=== PATIENT | male | born 1960 | race African-American/Black ===

== ENCOUNTER 2021-09-12 19:04 | Emergency (ER) | payer MEDICAID, SELFPAY ==
[2021-09-12 19:08] VITALS: BP 121/95; PULSE 89; RESP 18; TEMP 36.1; O2SAT 95; BMI 27.3
== END 2021-09-12 20:57 | disposition left against medical advice (07) ==
PROVIDERS: Emergency Provider Emergency Medicine; PCP Family Medicine
DX: M25.511 Pain in right shoulder (principal)
CPT/HCPCS: 99281

== ENCOUNTER 2022-05-17 08:59 | Outpatient (REF) | payer MEDICAID, SELFPAY ==
[2022-05-17 09:28] LABS: COVID-19 Test Negative (Negative); IDNOW Serial# BCCEAD1C
== END 2022-05-17 09:00 | disposition home or self-care (01) ==
LOC: HO.LAB 08:59
PROVIDERS: Visit Provider Internal Medicine
DX: Z20.822 Contact with and (suspected) exposure to COVID-19 (principal)
CPT/HCPCS: 87635; C9803

== ENCOUNTER 2022-08-28 15:30 | Emergency (ER) | payer MEDICAID, SELFPAY ==
--- NOTE | ~2022-08-28 | CT_ITS ---
EXAMINATION: CT cervical spine and CT brain without contrast. COMPARISON: None. TECHNIQUE: Axial 5 mm thin and reformatted 2 mm thin sagittal and coronal images of brain were obtained. Subsequently axial 3 mm thin and reformatted 2 mm thin sagittal and coronal images of cervical spine were obtained. DLP [address] examination was performed using dose optimization technique as appropriate, variously including the following: Automated exposure control Adjustment of MA and/or KV according to patient size(this includes techniques or standardized protocols for targeted exams where dose is matched to indication/reason for exam; extremities or head. Use of iterative reconstruction techniques. Brain: There is no acute intra-axial, extra-axial bleed, masses or midline shift. There is no acute infarction evolution. There is no edema. The lateral ventricles are symmetrical in size and configuration without enlargement. Bone windows reveal no calvarial abnormality. There is no scalp soft tissue modality. Bilateral paranasal sinuses and mastoid air cells are well-aerated. Cervical spine: There is normal cervical lordosis. The vertebral heights, alignment and disc heights are normal. The craniovertebral junction and the C1-C2 alignment is normal. There is mild left C3-C4 uncovertebral hypertrophic changes with degenerative disc changes mildly narrowing the left neural foramina. There is vacuum disc herniation as well. The right neural foramina is widely patent. There is a left laminar hypodensity at C7 measuring air likely old fracture and healing. Mild facet joint hypertrophic changes are seen at this disc level. Mild right C2-C3 facet joint arthropathy is noted as well. CT/CT cervical spine wo IV con IMPRESSION: 1. No acute intracranial process seen. 2. There is no acute fracture, dislocation or subluxation in cervical spine. There is a left C7 laminar hypodensity likely old fracture and healing. There is mild left C3-C4 neural foraminal narrowing from uncovertebral hypertrophic changes. The prevertebral and paravertebral soft tissues are normal. The airway is widely patent. The lung apices are clear.
[2022-08-28 15:40] VITALS: BP 103/77; BP 134/98; PULSE 110; RESP 16; TEMP 36.4; O2SAT 40; O2SAT 95; BMI 24.3
--- NOTE | 2022-08-28 16:02 | ED.ALCOHOL ---
HPI - Alcohol General Chief Complaint: ETOH/Substance Use <MARVA Matias Last Filed: 08/28/22 16:15> Stated Complaint: FOUND UNRESP,NARCAN GIVEN W/GOOD RESULT PER EMS <MARVA Matias Last Filed: 08/28/22 16:15> Time Seen by Provider: 08/28/22 15:36 <MARVA Matias Last Filed: 08/28/22 16:15> Source: patient, EMS, RN notes reviewed and old records reviewed <MARVA Matias Last Filed: 08/28/22 16:15> Mode of arrival: EMS <MARVA Matias Last Filed: 08/28/22 16:15> History of Present Illness HPI narrative: 61-year-old male with a past medical history of substance abuse presenting to the ED via EMS for ETOH intoxication and mechanical trip and fall w/+ head strike, denies LOC. Per EMS when patient was in the ambulance became unresponsive was given 2 mg of intranasal Narcan with positive result. Patient admits to drinking EtOH since this morning, about 1 bottle and 1 nip of fireball, as well as snorting 1 bag of heroin. Denies SI/HI. Denies headache, neck/back pain, CP/SOB, abdominal pain, nausea/vomiting <MARVA Matias Last Filed: 08/28/22 16:15> MD complaint: alcohol intoxication <MARVA Matias Last Filed: 08/28/22 16:15> Related Data Allergies/Adverse Reactions: Allergies Allergy/AdvReac Type Severity Reaction Status Date / Time tramadol Allergy Unknown itching Verified 09/12/21 19:08 No Known Allergies Allergy Verified 09/12/21 19:08 <MARVA Matias Last Filed: 08/28/22 16:15> Review of Systems Review of Systems: Constitutional: No Fever, No Chills, No Fatigue, No Malaise ENT/Mouth: No Ear Pain, No Nasal Congestion, No sore throat Cardiovascular: No Chest Pain, No SOB Respiratory: No Cough, No Sputum, No Dyspnea Gastrointestinal: No Nausea, No Vomiting, No Diarrhea, No Constipation, No Abdominal pain Genitourinary: No Dysuria, No Hematuria, No Urinary Incontinence/retention Musculoskeletal: No joint pain, No Myalgias, No Joint Swelling Skin: No Skin Lesions, No rash Neuro: No Weakness, No Loss of Consciousness, No Headache Psych: No Anxiety/Panic, No Depression, No SI/HI/AH/VH, No Social Issues <MARVA Matias - Last Filed: 08/28/22 16:15> Yes all other systems are reviewed and are negative <MARVA Matias - Last Filed: 08/28/22 16:15> Constitutional: Constitutional: Reports as per HPI <MARVA Matias Last Filed: 08/28/22 16:15> [facility] Past Medical History Attestation statement: The following information was validated with the patient. <MARVA Matias Last Filed: 08/28/22 16:15> Physical Exam ED Vital Signs: Vital Signs - 24 hr 08/28/22 15:40 Temperature 97.5 F Pulse Rate 110 H Respiratory Rate 16 Blood Pressure 103/77 Pulse Oximetry 95 Oxygen Delivery Method Room Air BMI result Body Mass Index 24.3 <MARVA Matias - Last Filed: 08/28/22 16:15> Vital Signs - 24 hr 08/28/22 15:40 Temperature 97.5 F Pulse Rate 110 H Respiratory Rate 16 Blood Pressure 103/77 Pulse Oximetry 95 Oxygen Delivery Method Room Air BMI result Body Mass Index 24.3 <Ba Maurer - Last Filed: 08/28/22 16:51> Const Other: + EtOH odor on breath <MARVA Matias - Last Filed: 08/28/22 16:15> General: cooperative, no acute distress, alert, awake and intoxicated appearing <MARVA Matias Last Filed: 08/28/22 16:15> Orientation/consciousness: patient oriented x3 <MARVA Matias - Last Filed: 08/28/22 16:15> Limitations: no limitations <MARVA Matias Last Filed: 08/28/22 16:15> HENMT Head: Yes normal to inspection, Yes atraumatic, No Rubalcava's sign and No raccoon eyes <MARVA Matias Last Filed: 08/28/22 16:15> Ears: hearing grossly normal bilaterally <Tavia Peralta PA - Last Filed: 08/28/22 16:15> General nose exam: Normal external nose present <Tavia Peralta [place] - Last Filed: 08/28/22 16:15> Face and sinus: Yes normal facial exam <Tavia Peralta PA - Last Filed: 08/28/22 16:15> Throat: Yes posterior oropharynx normal, Yes tonsils normal and Yes uvula midline <Tavia Peralta NH - Last Filed: 08/28/22 16:15> Eyes General: appearance normal, both eyes and all related structures <Tavia Peralta NH - Last Filed: 08/28/22 16:15> Pupils: Equal, round and reactive pupils present <Tavia Peralta NH - Last Filed: 08/28/22 16:15> EOM: EOMs intact bilaterally <Tavia Peralta NH - Last Filed: 08/28/22 16:15> Neck Neck: Yes normal visual inspection and Yes no meningeal signs <Tavia Peralta NH - Last Filed: 08/28/22 16:15> Resp Effort & Inspection: normal respiratory effort and no respiratory distress <Tavia Peralta NH - Last Filed: 08/28/22 16:15> Auscultation: clear to auscultation bilaterally <Tavia Peralta NH - Last Filed: 08/28/22 16:15> Cardio Rate: regular rate <Tavia Peralta NH - Last Filed: 08/28/22 16:15> Heart sounds: S1 normal heart sound present and S2 normal heart sound present <Tavia Peralta PA - Last Filed: 08/28/22 16:15> GI Inspection: Yes normal to inspection <Tavia Peralta NH - Last Filed: 08/28/22 16:15> Palpation (GI): Soft to palpation, nontender, no guarding and not rigid <Tavia Peralta PA - Last Filed: 08/28/22 16:15> General: Yes no CVA tenderness <Tavia Peralta PA - Last Filed: 08/28/22 16:15> Back/Spine/Pelvis Other: No midline cervical/thoracic/lumbar spinous tenderness/step-off or deformity <MARVA Matias Last Filed: 08/28/22 16:15> Back: no CVA tenderness <MARVA Matias Last Filed: 08/28/22 16:15> Skin Rashes: no rashes <MARVA Matias Last Filed: 08/28/22 16:15> Wounds: no wounds <Tavia Peralta [facility] Last Filed: 08/28/22 16:15> Neuro Other: No tongue fasciculations or tremors <MARVA Matias Last Filed: 08/28/22 16:15> General: patient oriented x3, tone normal, moves all extremities, no meningeal signs, no focal motor deficits and CN's II-XI intact bilaterally <MARVA Matias Last Filed: 08/28/22 16:15> Cranial nerves: Yes CN's II-XII intact bilaterally, Yes Equal, round and reactive pupils present and Yes Bilaterally intact EOM present <MARVA Matias Last Filed: 08/28/22 16:15> Gait exam (Neuro): Normal gait present <MARVA Matias Last Filed: 08/28/22 16:15> Extrem General: Yes normal to inspection <MARVA Matias Last Filed: 08/28/22 16:15> Psych Thought content: suicidality and no homicidality <MARVA Matias Last Filed: 08/28/22 16:15> Course Course Course Narrative: -1630--ED care transferred to MARVA Alfaro pending CT head/C-spine and clinical sobriety <MARVA Matias Last Filed: 08/28/22 16:15> Reevaluation(s) Reevaluation #1: Patient received in sign-out at change of shift pending CT scan and re-evaluation. Patient's CT scan did not show any acute traumatic injuries. The patient is requesting discharge at this time. He reports that he did not use drugs and was ?just tired. ? He is clinically sober at this time and does not want to speak to the care team regarding substance abuse resources <Ba Maurer - Last Filed: 08/28/22 16:51> Time: 16:49 <Ba Maurer - Last Filed: 08/28/22 16:51> Medical Decision Making Medical Decision Making [facility] Narrative: 61-year-old male with a past medical history of substance abuse presenting to the ED via EMS for ETOH intoxication and mechanical trip and fall w/+ head strike. Per EMS when patient was in the ambulance became unresponsive was given 2mg of intranasal Narcan with positive result. On exam mildly tachycardic, NAD, nontoxic appearing, + ETOH odor on breath, no evidence of trauma, no midline spinous tenderness throughout, moving all extremities. Concern for ETOH intoxication and accidental overdose. Rule out ICH although of lower suspicion. Plan: POSEY, head/C-spine CT Please refer to course for remaining clinical decision making, interpretation of labs/imaging results, and discussions with consultants and/or family members. <MARVA Matias - Last Filed: 08/28/22 16:15> Differential Diagnosis Differential Diagnoses: The differential diagnosis associated with the presentation includes <MARVA Matias - Last Filed: 08/28/22 16:15> As above <MARVA Matias - Last Filed: 08/28/22 16:15> Admission/Observation Consideration of admission/observation: Escalation of care including admission/observation considered <MARVA Matias - Last Filed: 08/28/22 16:15> Lab Data [facility] Lab Attestation statement: I reviewed the patient's lab results. <MARVA Matias - Last Filed: 08/28/22 16:15> Radiology Impression Discussion of test interpretation with radiology: I have reviewed the radiologist's reading. <MARVA Matias - Last Filed: 08/28/22 16:15> External Record Review External record reviewed: Inpatient record, Office record, Outpatient record, Prior outpatient labs, Prior outpatient radiology, Primary care record and Outside ED record <MARVA Matias - Last Filed: 08/28/22 16:15> Discharge Plan Discharge Clinical Impression: Alcoholic intoxication, Accidental overdose, Fall <MARVA Matias - Last Filed: 08/28/22 16:15> Patient Disposition: Home, Self-Care <MARVA Matias - Last Filed: 08/28/22 16:15> Instructions: Abuse of Alcohol (DC), Adult Overdose (ED) <MARVA Matias - Last Filed: 08/28/22 16:15> Additional Instructions: Avoid alcohol and drug use this can kill <MARVA Matias - Last Filed: 08/28/22 16:15> Referrals: [facility] [Provider Group] [facility] [Outside] <MARVA Matias - Last Filed: 08/28/22 16:15>
--- NOTE | 2022-08-28 17:44 | MHC.RECOVSUP ---
Met with pt in ED6H to provide and review recovery resources and reviewed harm reduction.
== END 2022-08-28 17:13 | disposition home or self-care (01) ==
LOC: HO.ED 17:08
PROVIDERS: Emergency Provider Emergency Medicine; PCP Family Medicine
DX: S09.90XA Unspecified injury of head, initial encounter (principal); R51.9 Headache, unspecified; M54.2 Cervicalgia; F10.129 Alcohol abuse with intoxication, unspecified; X58.XXXA Exposure to other specified factors, initial encounter; Y93.9 Activity, unspecified; Y92.9 Unspecified place or not applicable; Y99.9 Unspecified external cause status; Z79.899 Other long term (current) drug therapy
CPT/HCPCS: 70450; 72125; 99282; 99284

== ENCOUNTER 2022-11-03 20:57 | Emergency (ER) | payer MEDICAID, SELFPAY ==
[2022-11-03 20:54] VITALS: BP 140/66; PULSE 80; RESP 16; TEMP 38.1; O2SAT 95; BMI 26.6
--- NOTE | 2022-11-03 21:00 | PC.NURSE ---
pt somnolent, oriented came in via EMS for overdose to unknown substance denies pain at this time VSS
[2022-11-03 21:07] VITALS: BP 132/54; PULSE 75; RESP 16; TEMP 38.1; O2SAT 96
[2022-11-03 22:00] VITALS: BP 115/51; PULSE 81; RESP 16; TEMP 37.3; O2SAT 95
--- NOTE | 2022-11-03 22:01 | ED.OVERDOSE ---
HPI - Overdose General Chief Complaint: Overdose Stated Complaint: OD on opiods, per ems Time Seen by Provider: 11/03/22 21:37 Source: patient Mode of arrival: EMS Limitations: no limitations History of Present Illness HPI Narrative: Patient history of opiate abuse took 1 bag of heroin given to him by a friend passed out , was not given Narcan by EMS awake saturating 95% at room air says that he does not use heroin very often and this time it was heavy dose but only used 1 bag Related Data Allergies Allergy/AdvReac Type Severity Reaction Status Date / Time tramadol Allergy Unknown itching Verified 09/12/21 19:08 No Known Allergies Allergy Verified 09/12/21 19:08 Review of Systems Review of Systems: Yes all other systems are reviewed and are negative [facility] Social History Social History Alcohol intake: unknown Smoked in Last 30 Days: Yes Use of substances other than those prescribed or required for medical reasons: Yes Substance Use Type: Opiates Advance Directives: No Advance Directives Information Provided: Yes Physical Exam Vital Signs: Vital Signs: Last Vital Signs Temp 99.1 F 11/03/22 22:00 Pulse 81 11/03/22 22:00 Resp 16 11/03/22 22:00 BP 115/51 L 11/03/22 22:00 Pulse Ox 95 11/03/22 22:00 O2 Del Method Room Air 11/03/22 22:00 BMI result Body Mass Index 26.6 Appearance: Alert. Oriented X3. No acute distress. Eyes: PERRLA, No Nystagmus ENT: Pharynx normal. Oral Mucosa moist Neck: Normal inspection. Neck supple. CVS: Normal heart rate and rhythm. Pulses normal. Respiratory: No respiratory distress. Equal air entry bilateral, no wheezing/rales/rhonchi Abdomen: Soft and nontender. Bowel sounds are present, no mass palpable, no CVA tenderness Skin: Skin warm and dry. Normal skin color. Normal skin turgor. Extremities: No lower extremity edema. No calf tenderness Neuro: Oriented X 3. No motor deficit. No sensory deficit.No cerebellar signs , cranial nerves II-XII intact Medical Decision Making Medical Decision Making MDM Narrative: patient with opiate abuse does not want to go to detox saturating 95% room air discharge patient home Discharge Plan Discharge Clinical Impression: Poisoning by opiate or related narcotic Patient Disposition: Home, Self-Care Instructions: Opioid Use Disorder (ED) Additional Instructions: Stop using heroin and other drugs Follow-up with detox if needed Interventions: ED Discharge Assessment Last Done: 11/03/22 22:36 Discharge Date/Time: 11/03/22 22:35
--- NOTE | 2022-11-03 22:40 | PC.NURSE ---
Discharge instructions given and explained to pt No apparent distress aox4 All of pt's questions answered Ambulates safely and independently
== END 2022-11-03 22:35 | disposition home or self-care (01) ==
PROVIDERS: Emergency Provider Internal Medicine; PCP Family Medicine
DX: T40.1X1A Poisoning by heroin, accidental (unintentional), initial encounter (principal); Y92.9 Unspecified place or not applicable; Z71.51 Drug abuse counseling and surveillance of drug abuser
CPT/HCPCS: 99284; 99285

== ENCOUNTER 2022-11-13 18:37 | Emergency (ER) | payer MEDICAID, SELFPAY ==
[2022-11-13 18:45] VITALS: BP 100/48; PULSE 77; RESP 14; TEMP 36.6; O2SAT 94; BMI 23.3
[2022-11-13 18:46] VITALS: BP 112/60; PULSE 78; O2SAT 99
--- NOTE | 2022-11-13 19:19 | PC.NURSE ---
patient in stretcher, alert oriented x3, resp equal and unlabored maintains own airway and secretions, talking on the phone with a friend. patient calm and cooperative. gave patient a sandwich and apple juice
--- NOTE | 2022-11-13 19:57 | MHC.RECOVSUP ---
? Reason for consult Recovery support o Current location: ED18H o Identified substance use concern: Heroin - Overdose - Support ? Intervention o Community resources provided o Harm reduction discussion ? Plan: o Patient to follow up with H after discharge ? Additional information: Met with patient and we talk recovery.... Patient stated that He dont want ATS that he on MAT( Methadone ) But that he knows where to go.. [facility] [place]..
--- NOTE | 2022-11-13 20:21 | HO.SUDE ---
Pt was seen by CARE Team for a SUDE. During SUDE pt denied SI. He reported that overdose was not intentional. CARE Team attempted to discuss risk reduction and it was noted that he was not interested in any services and supports.
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
== END 2022-11-13 20:44 | disposition home or self-care (01) ==
PROVIDERS: Emergency Provider Student in an Organized Health Care Education/Training Program
DX: T40.1X1A Poisoning by heroin, accidental (unintentional), initial encounter (principal); Y92.414 Local residential or business street as the place of occurrence of the external cause; F19.10 Other psychoactive substance abuse, uncomplicated
CPT/HCPCS: 99283; 99284

== ENCOUNTER 2022-11-15 00:17 | Emergency (ER) | payer MEDICAID, SELFPAY ==
[2022-11-15 00:31] VITALS: BP 132/74; PULSE 78; RESP 18; O2SAT 98; BMI 22.1
--- NOTE | 2022-11-15 00:50 | PC.NURSE ---
Pt presents to E via EMS after an accidental overdose on 1 bag of heroin. Pt was given 8mg Narcan by PD and became alert and oriented by the time EMS arrived on scene. Pt presented to ER A&Ox4, GCS 15, with warm, dry skin. Pt is nauseas and vomited while with EMS. Pt has been changed over into hospital clothes and belongings have been secured in decon by Will from security. Pt is resting in bed with an O2 monitor on his finger, per Dr Khan.
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
[2022-11-15] MEDS: Naloxone HCl Nasal TAKE HOME 4 MG SPRAY 8 MG NOSTRILALT (05:58)
== END 2022-11-15 06:13 | disposition home or self-care (01) ==
PROVIDERS: Emergency Provider Emergency Medicine
DX: R40.4 Transient alteration of awareness (principal); T40.1X1A Poisoning by heroin, accidental (unintentional), initial encounter; Y92.521 Bus station as the place of occurrence of the external cause; F19.10 Other psychoactive substance abuse, uncomplicated
CPT/HCPCS: 99284; 99285

== ENCOUNTER 2022-11-26 20:15 | Emergency (ER) | payer MEDICAID, SELFPAY ==
[2022-11-26 20:29] VITALS: BP 117/52; BP 180/60; PULSE 77; RESP 16; TEMP 36.9; O2SAT 97; BMI 27.4
--- NOTE | 2022-11-26 20:37 | PC.NURSE ---
pt refused to private branch exchange installer
[2022-11-26 21:29] LABS: Appearance Urine Clear; Color Urine Dark Yellow; Glucose Urine UA Negative (Negative); Leukocyte Esterase Urine Small (1+) (Negative); Nitrite Urine Negative (Negative); PH 5.5 (5.0-9.0); Specific Gravity - Urine 1.015 (1.005-1.025); UMIC TRIGGER UACC YES; Urine Blood Negative (Negative); Urine Ketones Negative (Negative); Urine Protein Negative (Neg-Trace)
[2022-11-26 21:38] LABS: Bacteria Urine None Seen (None Seen); Hyaline Casts Urine 0-2 /LPF (0-2); RBC Urine 0-2 /HPF (0-2); Squamous Epithelial Cell Urine 0-2 /HPF (0-2); UACC Culture Trigger YES
[2022-11-26 21:45] LABS: Amphetamine Screen Urine Not Detected (Not Detect); Barbiturates, Urine Not Detected (Not Detect); Benzodiazepines Screen Urine Not Detected (Not Detect); Cannabinoid Screen Urine POSITIVE (Not Detect); Cocaine Screen Urine Not Detected (Not Detect); Fentanyl, urine POSITIVE (Not Detect); Opiate Screen Urine POSITIVE (Not Detect); Phencyclidine Screen Urine Not Detected (Not Detect)
--- NOTE | 2022-11-26 22:57 | ED_ITS ---
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 at this time patient is alert oriented x3 saturating 97% room air refusing to stay in the hospital or to go to detox Related Data Allergies Allergy/AdvReac Type Severity Reaction Status Date / Time tramadol Allergy Unknown itching Verified 09/12/21 19:08 No Known Allergies Allergy Verified 09/12/21 19:08 Review of Systems Review of Systems: Yes all other systems are reviewed and are negative [facility] Past Medical History Medical History Polysubstance abuse Social History Social History Alcohol intake: never Smoked in Last 30 Days: No Use of substances other than those prescribed or required for medical reasons: Yes Substance Use Type: Heroin Substance Use Frequency: Daily Last Used Substance: Just Prior to Admission Advance Directives: No Advance Directives Information Provided: No Physical Exam Vital Signs: Vital Signs: Last Vital Signs Temp 98.5 F 11/26/22 20:29 Pulse 77 11/26/22 20:29 Resp 16 11/26/22 20:29 BP 117/52 L 11/26/22 20:29 Pulse Ox 97 11/26/22 20:29 O2 Del Method Room Air 11/26/22 20:29 BMI result Body Mass Index 27.4 Appearance: Alert. Oriented X3. No acute distress. Eyes: PERRLA, No Nystagmus ENT: Pharynx normal. Oral Mucosa moist Neck: Normal inspection. Neck supple. CVS: Normal heart rate and rhythm. Pulses normal. Respiratory: No respiratory distress. Equal air entry bilateral, no wheezing/rales/rhonchi Abdomen: Soft and nontender. Bowel sounds are present, Skin: Skin warm and dry. Normal skin color. Normal skin turgor. Extremities: No lower extremity edema. No calf tenderness Neuro: Oriented X 3. No motor deficit. No sensory deficit.No cerebellar signs , cranial nerves II-XII intact Medical Decision Making Medical Decision Making [facility] Narrative: Patient will call to substance abuse fentanyl and cocaine saturating 98% room air refusing to go to detox will discharge patient home Lab Data [facility] Lab Attestation statement: I reviewed the patient's lab results. Labs: Lab Results 11/26/22 11/26/22 Range/Units 21:20 21:20 Urine Color Dark Yellow Urine Appearance Clear Urine pH 5.5 (5.0-9.0) Ur Specific [place] 1.015 (1.005-1.025) Urine Protein Negative (Neg-Trace) mg/dL Urine Glucose (UA) Negative (Negative) mg/dL Urine Ketones Negative (Negative) mg/dL Urine Blood Negative (Negative) Urine Nitrite Negative (Negative) Ur Leukocyte Esterase Small (1+) H (Negative) Urine RBC 0-2 (0-2) /HPF Urine WBC 6-10 H (0-5) /HPF Ur Squamous Epith Cells 0-2 (0-2) /HPF Urine Bacteria None Seen (None Seen) Hyaline Casts 0-2 (0-2) /LPF Urine Opiates Screen POSITIVE H (Not Detect) Urine Fentanyl Screen POSITIVE H (Not Detect) Ur Barbiturates Screen Not Detected (Not Detect) Ur Phencyclidine Scrn Not Detected (Not Detect) Ur Amphetamines Screen Not Detected (Not Detect) U Benzodiazepines Scrn Not Detected (Not Detect) Urine Cocaine Screen Not Detected (Not Detect) U Marijuana (THC) Screen POSITIVE H (Not Detect) Discharge Plan Discharge Clinical Impression: Accidental opiate poisoning Patient Disposition: Home, Self-Care Instructions: Opioid Use Disorder (ED) Additional Instructions: Stop using heroin Interventions: ED Discharge Assessment Last Done: 11/26/22 21:47 Discharge Date/Time: 11/26/22 21:51
== END 2022-11-26 21:51 | disposition home or self-care (01) ==
PROVIDERS: Emergency Provider Internal Medicine; PCP Family Medicine
DX: T40.1X1A Poisoning by heroin, accidental (unintentional), initial encounter (principal); Y92.9 Unspecified place or not applicable; Z79.899 Other long term (current) drug therapy; Z71.51 Drug abuse counseling and surveillance of drug abuser
CPT/HCPCS: 80307; 81001; 87086; 99284; 99285

== ENCOUNTER 2022-11-30 14:59 | Emergency (ER) | payer MEDICAID, SELFPAY ==
--- NOTE | 2022-11-30 15:12 | PC.NURSE ---
Pt. refuses treatment and is repeatedly stating that he wants to leave. MD Eliz to bedside to discuss risks of leaving with pt. MD made pt. verbalize and teach-back the risk of leaving. Pt. demonstrated understanding and verbalized that a risk of leaving and overdosing again is possible .
--- NOTE | 2022-11-30 15:14 | ED.OVERDOSE ---
HPI - Overdose General Stated Complaint: od,narcan given per ems Time Seen by Provider: 11/30/22 15:02 Source: patient and EMS Mode of arrival: EMS Limitations: no limitations History of Present Illness HPI Narrative: 59-year-old male with history of substance abuse presents with an accidental overdose. He is not suicidal homicidal. Did bag the Mam[place] prior to arrival. He was found by bystanders passed out on the side of the road. He denies any trauma, falls, injuries. Patient has done the 7 times recently in the past. He is not interested in detox. Is not interested in any services. He wishes to be leave at this time. Denies any fever, chills, cough, mucus production. Denies any chest pain. He has Narcan at home and does not want any additional Narcan. He is aware that we have recommended observation in the emergency department for least 2 hours make sure he does not have any rebound reactions after Narcan wears off. He is completely aware that he may for recurrent symptoms at this point, patient has capacity since to make his own decisions. Related Data Allergies Allergy/AdvReac Type Severity Reaction Status Date / Time tramadol Allergy Unknown itching Verified 09/12/21 19:08 No Known Allergies Allergy Verified 09/12/21 19:08 Review of Systems Review of Systems: CONSTITUTIONAL: Denies weight loss, fever and chills. HEENT: Denies changes in vision and hearing. RESPIRATORY: Denies SOB and cough. CV: Denies palpitations no CP. GI: Denies abdominal pain, nausea, vomiting and diarrhea. : Denies dysuria and urinary frequency. MSK: Denies myalgia and joint pain. SKIN: Denies rash and pruritus. NEUROLOGICAL: Denies headache and syncope. PSYCHIATRIC: Denies recent changes in mood. Denies anxiety and depression. All other ROS are negative unless in HPI PMFSH Past Medical History Medical History Polysubstance abuse Social History Social History Alcohol intake: never Substance Use Type: Heroin Physical Exam Vital Signs: GEN: Well developed, no acute distress, alert, oriented HEENT: Normocephalic, atraumatic, normal external ears, nose appears normal, no oropharyngeal edema or exudates Eyes: Normal to appearance Neck: Supple, no lymphadenopathy Respiratory: Talks in complete sentences, no respiratory distress, clear to auscultation bilaterally Cardiovascular: Regular rate and rhythm, no murmurs rubs or gallops Abdomen: Soft, nontender, nondistended, no guarding, no rebound Back: No CVA tenderness Extremities: No clubbing cyanosis or edema Neurologic: No focal neurologic deficits, cranial nerves 2-12 intact, strength is 5/5 bilaterally Skin: No rash Medical Decision Making Medical Decision Making [facility] Narrative: 61-year-old male with history of substance abuse presents with acute accidental overdose. He has no suicidal ideation. No depression, no anxiety. Like to go back to work. Patient admits to drinking alcohol and doing a bag of heroin. Patient has decision-making capacity is. He it is aware that he could have rebound reactions and I. Aware that future overdoses could be more dull to the patient. I cannot longer hold the patient against his will. I did offer Narcan to go. I did offer at least 2 hours of observation. Patient refused. He is or the kidney return for any reason whatsoever. He has been offered outpatient services as well Differential Diagnosis Differential Diagnoses: The differential diagnosis associated with the presentation includes (Overdose, electrolyte abnormality, anemia) Independent Historian Clinical information obtained from an independent historian. History obtained from or confirmed by: EMS Discharge Plan Discharge Clinical Impression: Polysubstance abuse, Overdose Patient Disposition: Left Against Medical Advice Instructions: Polysubstance Abuse (ED), Adult Overdose (ED) Additional Instructions: You have chosen to leave against medical advice. He overdosed on opioids. We recommended that you take Narcan to go which he refused. You did express to me that you are aware that if you overdose no one finding that there is a good possibility could . I am recommending outpatient follow-up for opioid abuse management. Return any time for re-evaluation and assistance. Referrals: [facility] [Provider Group] Stand Alone Forms: Against Medical Advice
[2022-11-30 15:21] VITALS: BP 112/54; PULSE 70; RESP 16; TEMP 36.6; O2SAT 96
--- NOTE | 2022-11-30 15:59 | MHC.RECOVSUP ---
Attempted to meet with pt in [facility] who was here for OD. Pt left AMA before T/W was able to meet them, reviewed pt with ED provider and informed pt did not want any recover assistance and just wanted to go back to work.
== END 2022-11-30 15:23 | disposition left against medical advice (07) ==
LOC: HO.ED 15:14
PROVIDERS: Emergency Provider Emergency Medicine; PCP Family Medicine
DX: T40.1X1A Poisoning by heroin, accidental (unintentional), initial encounter (principal); Y92.9 Unspecified place or not applicable; F11.10 Opioid abuse, uncomplicated; Z71.51 Drug abuse counseling and surveillance of drug abuser
CPT/HCPCS: 99281

== ENCOUNTER 2022-12-04 00:58 | Emergency (ER) | payer MEDICAID, SELFPAY ==
[2022-12-04 01:22] VITALS: BP 128/49; BP 160/100; PULSE 127; PULSE 86; RESP 17; TEMP 36.6; O2SAT 96; O2SAT 97; BMI 24.7
--- NOTE | 2022-12-04 01:52 | ED_ITS ---
HPI - Overdose General Chief Complaint: ETOH/Substance Use Stated Complaint: OD Time Seen by Provider: 12/04/22 01:08 Source: patient and EMS Mode of arrival: EMS History of Present Illness HPI Narrative: 61-year-old male brought in by EMS for evaluation ever receiving 4 mg of Narcan from the police department. Patient sources that he did use dope , but EMS reports patient was never unresponsive her apneic. Patient denies any attempts to hurt himself and denies any suicidal thoughts. Patient also declines any detox information or wanting detox at this time. Related Data Allergies Allergy/AdvReac Type Severity Reaction Status Date / Time tramadol Allergy Unknown itching Verified 09/12/21 19:08 No Known Allergies Allergy Verified 09/12/21 19:08 Review of Systems Review of Systems: Pertinent positives and negatives as stated in HPI PMFSH Past Medical History Source: nursing notes reviewed Medical History Polysubstance abuse Social History Social History Alcohol intake: unknown Smoked in Last 30 Days: Yes Use of substances other than those prescribed or required for medical reasons: Unknown Substance Use Type: Heroin Physical Exam Vital Signs: Vital Signs: Last Vital Signs Temp 97.9 F 12/04/22 01:22 Pulse 85 12/04/22 02:00 Resp 16 12/04/22 02:00 BP 119/50 L 12/04/22 02:00 Pulse Ox 93 12/04/22 02:00 O2 Del Method Room Air 12/04/22 02:00 BMI result Body Mass Index 24.7 VITAL SIGNS: Reviewed. GENERAL: Well developed, well nourished, in no acute distress. HEAD: Normocephalic/atraumatic EYES: PERRLA, EOMI LUNGS: Normal breath sounds. No adventitious sounds or accessory muscle use. SpO2<96> CARDIOVASCULAR: Regular rate and rhythm without noted murmurs ABDOMEN: Soft, non-tender, non-distended with bowel sounds. MUSCULOSKELETAL: No tenderness, deformities, or effusions noted on gross inspection. EXTREMITIES: No cyanosis, clubbing or edema. SKIN: Inspection of the skin reveals no rashes NEUROLOGIC: Alert and oriented x 3. Strength and sensation to light touch were grossly intact x 4. Medications Administered Discontinued Medications Generic Name Dose Route Start Last Admin Trade Name Steven PRN Reason Stop Dose Admin Naloxone HCl 8 mg 12/04/22 01:19 12/04/22 01:56 Naloxone Hcl Nasal Take Home 4 Mg Caroleen NOSTRILALT 12/04/22 01:20 8 mg ONCE ONE Administration Medical Decision Making Medical Decision Making [facility] Narrative: This is a 61-year-old male with accidental overdose and responded well to 4 mg of Narcan. No evidence to suggest suicidal ideation or attempt and at this time declines any detox. Patient to be observed for 2 hours and then discharged with home Narcan. Differential Diagnosis Differential Diagnoses: The differential diagnosis associated with the presentat ion includes Please see the discussion above Admission/Observation Consideration of admission/observation: Escalation of care including admission/observation considered Please see the discussion above External Record Review External record reviewed: Outpatient record and Prior outpatient labs Discharge Plan Discharge Clinical Impression: Polysubstance abuse, Overdose Patient Disposition: Home, Self-Care Instructions: Polysubstance Abuse (ED), Adult Overdose (ED) Additional Instructions: Return to the ER for any worsening symptoms.
[2022-12-04] MEDS: Naloxone HCl Nasal TAKE HOME 4 MG SPRAY 8 MG NOSTRILALT (01:56)
[2022-12-04 02:00] VITALS: BP 119/50; PULSE 85; RESP 16; O2SAT 93
--- NOTE | 2022-12-04 02:07 | PC.NURSE ---
Pt sleeping at the bedside. Easily arousable to verbal stimuli.Breaths are even regular and unlabored. VSS. Capnography monitoring in place as ordered. Co2 42. Narcan provided to pt as ordered to take home. Will continue to monitor.
[2022-12-04 03:11] VITALS: BP 140/69; PULSE 76; RESP 14; O2SAT 96
--- NOTE | 2022-12-04 03:15 | PC.NURSE ---
Ao x 3. Ambulated to the bathroom with no assistance and a steady gait. VSS Discharge instructions reviewed with pt. Pt verbalizes understanding.
--- NOTE | 2022-12-04 03:16 | PC.NURSE ---
Denies SI/HI
== END 2022-12-04 03:16 | disposition home or self-care (01) ==
PROVIDERS: Emergency Provider Student in an Organized Health Care Education/Training Program; PCP Family Medicine
DX: T50.901A Poisoning by unspecified drugs, medicaments and biological substances, accidental (unintentional), initial encounter (principal); F19.10 Other psychoactive substance abuse, uncomplicated; Y92.9 Unspecified place or not applicable
CPT/HCPCS: 99283; 99284

== ENCOUNTER 2023-04-05 10:43 | Outpatient (REF) | payer MEDICAID, SELFPAY ==
--- NOTE | ~2023-04-05 | XR_ITS ---
EXAMINATION: XR KNEE, RIGHT CLINICAL INFORMATION: Acute right knee pain. COMPARISON: June 21, 2010 TECHNIQUE: 3 views of the right knee. FINDINGS: Sclerotic lesion redemonstrated in the proximal tibia, likely representing a bone island. Tiny tricompartmental osteophytes. Tiny spur along the anterior/superior aspect of the patella. Small joint effusion. XR/XR knee RT 3V IMPRESSION: Mild tricompartmental degenerative changes. Small joint effusion.
== END 2023-04-05 10:44 | disposition home or self-care (01) ==
LOC: HO.XRAY 10:43
PROVIDERS: PCP Family Medicine; Visit Provider Family Medicine
DX: M25.561 Pain in right knee (principal)
CPT/HCPCS: 73562

== ENCOUNTER 2023-07-16 10:26 | Outpatient (AMB) | payer MEDICAID, SELFPAY ==
--- NOTE | 2023-07-16 10:28 | MHC.OFFVIS ---
Intake Vital Signs 07/16/23 10:34 Height 5 ft 9 in Weight 177 lb 6 oz BMI 26.2 BP 126/58 L Blood Pressure Location Lt brachial Position Sitting Respiration 16 Pulse 60 Pulse Source Pulse Oximeter Pulse Oximetry (%) 100 Oxygen Delivery Method Room Air Intake Visit Reasons: PROCEDURE DISCUSSION Intake Note: Patient comes in to discuss procedures. Report pain 02/06. Allergies tramadol Allergy (Unknown, Verified 07/16/23 10:33) itching No Known Allergies Allergy (Verified 07/16/23 10:33) HPI HPI Comments History of Present Illness Details Todd is 62 years old gentleman who presents in my office with complains on lower back pain after a long period of absence. He reported that his pain started many years ago, he was under care of this office in the past and received multiple injections in this office. He had medial branch blocks performed and transforaminal epidural steroid injections performed with moderate pain relief he was subject of the MRI available to me 4 years ago on which the were L2-L3 minimal disc bulge moderate facet arthrosis L4 L3 diffuse disc bulge concentric to the right moderate facet arthrosis, ligamentous hypertrophy central canal stenosis mild in nature and neural foraminal right greater than left stenosis. L4-5 arthrosis ligamentous hypertrophy mild canal stenosis mild narrowing of neural foramina L5-S1 disc osteophyte complex small central and right foraminal disc protrusions moderate facet arthrosis and ligamentum flavum hypertrophy central canal narrowing and moderate narrowing of neural foramina. However in the past few years he was under care of [facility] he received injections in nature which he does not remember, he only reports that it was 4. injections in his lower back. 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 [facility] Medical History Polysubstance abuse Social History Alcohol intake: unknown Substance Use Type: Heroin Review of Systems Const All systems reviewed & are unremarkable except as noted in HPI and below ENT Reports Normal hearing present Neuro Reports Normal hearing present, Denies Abnormal speech present, Denies confusion and Denies Sensory deficit (Neuro) Psych Denies confusion Physical Exam Vital Signs: Last Vital Signs Pulse 60 07/16/23 10:34 Resp 16 07/16/23 10:34 BP 126/58 L 07/16/23 10:34 Pulse Ox 100 07/16/23 10:34 Oxygen Delivery Method Room Air 07/16/23 10:34 BMI result Body Mass Index 26.2 Const General: no acute distress; No confusion Orientation/consciousness: patient oriented x3 and No confusion Eyes General: appearance normal, both eyes and all related structures Pupils: Equal, round and reactive pupils present EOM: EOMs intact bilaterally Neck Neck: Yes full ROM Chest Chest palpation & inspection: normal inspection of the chest Resp Effort & Inspection: normal respiratory effort, able to speak in complete sentences, normal respiratory pattern, no audible wheezes and no cough Cardio Jugular venous distension: no JVD GI Inspection: Yes normal to inspection Back/Spine/Pelvis Other: On physical exam the patient is thin on inspection he assumes leaning forward posture. He reports mild discomfort on straight leg raising however the dorsiflexion of the feet in bilateral fashion does not increase pain in the back. Rosalio test seem to be positive however the palpation of the sacroiliac joint projection to the skin on the patient's back results in no tenderness on palpation. Pelvic compression and pelvic distraction test are also equivocal. Palpation of the lumbar spine and lower thoracic spine is tender on paraspinal spinal regions. Muscular strength of bilateral lower extremity seem to be symmetrical. There is no sensation deficits. Valsalva is positive for pain increase. He denies incontinence with urine endorse stool he denies urinary retention. Neuro General: patient oriented x3, gait normal and No confusion Cranial nerves: Yes CN's II-XII intact bilaterally, Yes Equal, round and reactive pupils present, Yes Normal hearing present and Yes Ability to bilaterally elevate shoulders present Speech: No Abnormal speech present Gait exam (Neuro): Normal gait present Motor exam (neuro): 5/5 motor strength present throughout Sensory Exam: No Sensory deficit (Neuro) Extrem General: No pedal edema Psych Speech and movement: Normal speech and movement present Affect: normal affect Attitude: cooperative Thought process: Normal thought process present Thought content: Normal thought content present Insight: Good insight present (Psych) Judgement: Good judgement present (Psych) Assessment & Plan Assessment & Plan (1) Polysubstance abuse: Code(s): F19.10 - Other psychoactive substance abuse, uncomplicated (2) Disc degeneration, lumbar: Code(s): M51.36 - Other intervertebral disc degeneration, lumbar region (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 he was receiving steroid injections which were helpful for his pain control for a while. He does not understand why [facility] stopped performing his injections. I requested him to bring me the information about recent MRI he had with [facility] as well as names of the injections he received at that office. I will schedule him for appointment with me in 2 weeks. We most likely will be able to perform those injections here as he was getting it at [facility] Coding Level of Care Code Est Pt Level 3 (85384) Diagnoses Polysubstance abuse F19.10 Disc degeneration, lumbar M51.36 Spondylosis of lumbar region without myelopathy or radiculopathy M47.816 Chronic pain syndrome G89.4
[2023-07-16 10:34] VITALS: BP 126/58; PULSE 60; RESP 16; O2SAT 100; BMI 26.2
== END 2023-07-16 10:45 | disposition home or self-care (01) ==
PROVIDERS: PCP Family Medicine; Visit Provider Anesthesiology
DX: F19.10 Other psychoactive substance abuse, uncomplicated (principal); M51.36 Other intervertebral disc degeneration, lumbar region; M47.816 Spondylosis without myelopathy or radiculopathy, lumbar region; G89.4 Chronic pain syndrome
CPT/HCPCS: 99213

== ENCOUNTER → 2023-07-16 10:27 | Outpatient (BNVA) | payer MEDICAID, SELFPAY | PROVIDERS: PCP Family Medicine; Visit Provider Anesthesiology | DX: F19.10 Other psychoactive substance abuse, uncomplicated (principal); M51.36 Other intervertebral disc degeneration, lumbar region; M47.816 Spondylosis without myelopathy or radiculopathy, lumbar region; G89.4 Chronic pain syndrome | CPT/HCPCS: 99212 ==

== ENCOUNTER 2023-07-30 09:33 | Outpatient (AMB) | payer MEDICAID, SELFPAY ==
--- NOTE | 2023-07-30 09:47 | A.OFFVIS_ITS ---
Intake Vital Signs 07/30/23 09:54 Height 5 ft 9 in Weight 170 lb BMI 25.1 BP 134/60 Blood Pressure Location Lt brachial Position Sitting Respiration 16 Pulse 61 Pulse Source Pulse Oximeter Pulse Oximetry (%) 95 Oxygen Delivery Method Room Air Intake Visit Reasons: Procedure Discussion Intake Note: Patient comes in to discuss procedure. Reports pain 10. Allergies tramadol Allergy (Unknown, Verified 07/30/23 09:55) itching No Known Allergies Allergy (Verified 07/30/23 09:55) HPI HPI Comments History of Present Illness Details Todd is 62 years old gentleman who presents in my office with complains on lower back pain after a long period of absence. He reported that his pain started many years ago, he was under care of this office in the past and received multiple injections in this office. He had medial branch blocks performed and transforaminal epidural steroid injections performed with moderate pain relief he was subject of the MRI available to me 4 years ago on which the were L2-L3 minimal disc bulge moderate facet arthrosis L4 L3 diffuse disc bulge concentric to the right moderate facet arthrosis, ligamentous hypertrophy central canal stenosis mild in nature and neural foraminal right greater than left stenosis. L4-5 arthrosis ligamentous hypertrophy mild canal stenosis mild narrowing of neural foramina L5-S1 disc osteophyte complex small central and right foraminal disc protrusions moderate facet arthrosis and ligamentum flavum hypertrophy central canal narrowing and moderate narrowing of neural foramina. However in the past few years he was under care of [facility] he received injections Those injections were: Left L4-5 interlaminar injection 08/12/2020 Reports good results bilateral L4-5 and L5-S1 intra-articular facet joint injections 11/10/2020 Reports moderate results less than 40% pain improvement Repeat bilateral L4-5 L5-S1 intra-articular facet joint injections 04/06/2021 Reports moderate results. Bilateral L4-5 L5-S1 intra-articular facet joint injections 07/20/2021 Reports moderate results. L4-5 interlaminar epidural steroid injection 08/18/2021 Reports no improvement Bilateral L4-5 L5-S1 facet joint injections 10/12/2021 Reports no improvement Trial of spinal cord stimulator [employer] 05/18/2022 Reports loss of stimulation secondary to the leads migration When I was asking him what injection were helping him he said that all of the injections were very helpful. He wants to try both medial branch blocks as well as interlaminar epidural steroid injections. I decided to go with L4-5 interlaminar epidural steroid injection 1st. 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 [facility] Medical History Polysubstance abuse Social History Alcohol intake: unknown Substance Use Type: Heroin Review of Systems Const All systems reviewed & are unremarkable except as noted in HPI and below ENT Reports Normal hearing present Neuro Reports Normal hearing present, Denies Abnormal speech present, Denies confusion and Denies Sensory deficit (Neuro) Psych Denies confusion Physical Exam Const General: no acute distress; No confusion Orientation/consciousness: patient oriented x3 and No confusion Eyes General: appearance normal, both eyes and all related structures Pupils: Equal, round and reactive pupils present EOM: EOMs intact bilaterally Neck Neck: Yes full ROM Chest Chest palpation & inspection: normal inspection of the chest Resp Effort & Inspection: normal respiratory effort, able to speak in complete sentences, normal respiratory pattern, no audible wheezes and no cough Cardio Jugular venous distension: no JVD GI Inspection: Yes normal to inspection Back/Spine/Pelvis Other: On physical exam the patient is thin on inspection he assumes leaning forward posture. He reports mild discomfort on straight leg raising however the dorsiflexion of the feet in bilateral fashion does not increase pain in the back. Rosalio test seem to be positive however the palpation of the sacroiliac joint projection to the skin on the patient's back results in no tenderness on palpation. Pelvic compression and pelvic distraction test are also equivocal. Palpation of the lumbar spine and lower thoracic spine is tender on paraspinal spinal regions. Muscular strength of bilateral lower extremity seem to be symmetrical. There is no sensation deficits. Valsalva is positive for pain increase. He denies incontinence with urine endorse stool he denies urinary retention. Neuro General: patient oriented x3, gait normal and No confusion Cranial nerves: Yes CN's II-XII intact bilaterally, Yes Equal, round and reactive pupils present, Yes Normal hearing present and Yes Ability to bilaterally elevate shoulders present Speech: No Abnormal speech present Gait exam (Neuro): Normal gait present Motor exam (neuro): 5/5 motor strength present throughout Sensory Exam: No Sensory deficit (Neuro) Extrem General: No pedal edema Psych Speech and movement: Normal speech and movement present Affect: normal affect Attitude: cooperative Thought process: Normal thought process present Thought content: Normal thought content present Insight: Good insight present (Psych) Judgement: Good judgement present (Psych) Assessment & Plan Assessment & Plan (1) Polysubstance abuse: Code(s): F19.10 - Other psychoactive substance abuse, uncomplicated (2) Disc degeneration, lumbar: Code(s): M51.36 - Other intervertebral disc degeneration, lumbar region (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 One injection was interlaminar L4-5 epidural steroid injection. Patient states that all the procedures helped him a lot. I will schedule him for interlaminar L4-5 epidural steroid injection. If this will not help I will try medial branch blocks bilateral L3 L4-5 diagnostic with possible sprint PNS treatment after that. Coding Level of Care Code Est Pt Level 3 (25131) Diagnoses Polysubstance abuse F19.10 Disc degeneration, lumbar M51.36 Spondylosis of lumbar region without myelopathy or radiculopathy M47.816 Chronic pain syndrome G89.4 Radiculopathy, lumbar region M54.16
[2023-07-30 09:54] VITALS: BP 134/60; PULSE 61; RESP 16; O2SAT 95; BMI 25.1
== END 2023-07-30 09:55 | disposition home or self-care (01) ==
PROVIDERS: PCP Family Medicine; Visit Provider Anesthesiology
DX: F19.10 Other psychoactive substance abuse, uncomplicated (principal); M51.36 Other intervertebral disc degeneration, lumbar region; M47.816 Spondylosis without myelopathy or radiculopathy, lumbar region; G89.4 Chronic pain syndrome; M54.16 Radiculopathy, lumbar region
CPT/HCPCS: 99213

== ENCOUNTER → 2023-07-30 09:33 | Outpatient (BNVA) | payer MEDICAID, SELFPAY | PROVIDERS: PCP Family Medicine; Visit Provider Anesthesiology | DX: M51.36 Other intervertebral disc degeneration, lumbar region (principal); G89.4 Chronic pain syndrome; M47.26 Other spondylosis with radiculopathy, lumbar region | CPT/HCPCS: 99212 ==

== ENCOUNTER 2023-08-21 06:14 | Outpatient (REF) | payer MEDICAID, SELFPAY ==
--- NOTE | ~2023-08-21 | FL_ITS ---
EXAMINATION: XR FLUOROSCOPY WITH IMAGES CLINICAL INFORMATION: Lumbar injection COMPARISON: None available. TECHNIQUE: Fluoroscopy Supervised By: Physician. Fluoroscopy Time: 0.1 minutes. Cumulative Dose: 7.49 mGy. DAP: 1.83 Gycm2. Images: 1. FINDINGS: Injection needle overlies in the posterior elements at the L4-L5 level. FL/FL guidance in treatment room IMPRESSION: Fluoroscopy is described.
== END 2023-08-21 06:15 | disposition home or self-care (01) ==
LOC: CF 06:14
PROVIDERS: Visit Provider Anesthesiology
DX: M54.16 Radiculopathy, lumbar region (principal); G89.4 Chronic pain syndrome; M47.816 Spondylosis without myelopathy or radiculopathy, lumbar region; M51.36 Other intervertebral disc degeneration, lumbar region
CPT/HCPCS: 62323; J3301; Q9967

== ENCOUNTER 2023-08-21 11:00 | Outpatient (AMB) | payer MEDICAID, SELFPAY ==
[2023-08-21 11:07] VITALS: BP 140/76; PULSE 61; RESP 18; O2SAT 93; BMI 25.1
--- NOTE | 2023-08-21 11:07 | MHC.OFFVIS ---
Vital Signs 08/21/23 11:07 08/21/23 12:02 Height 5 ft 9 in Weight 170 lb BMI 25.1 BP 140/76 H 130/86 Blood Pressure Location Lt brachial Lt brachial Position Sitting Sitting Respiration 18 16 Pulse 61 68 Pulse Source Pulse Oximeter Pulse Oximeter Pulse Oximetry (%) 93 94 Oxygen Delivery Method Room Air Room Air Comment Post-Op Post-Op Intake Visit Reasons: L4, L5 INTERLAMINAR MAXIMILIAN Allergies tramadol Allergy (Unknown, Verified 07/30/23 09:55) itching No Known Allergies Allergy (Verified 07/30/23 09:55) [facility] Medical History Polysubstance abuse Social History Alcohol intake: unknown Substance Use Type: Heroin Physical Exam Vital Signs: Last Vital Signs Pulse 68 08/21/23 12:02 Resp 16 08/21/23 12:02 BP 130/86 08/21/23 12:02 Pulse Ox 94 08/21/23 12:02 Oxygen Delivery Method Room Air 08/21/23 12:02 BMI result Body Mass Index 25.1 Assessment & Plan Assessment & Plan (1) Radiculopathy, lumbar region: Code(s): M54.16 - Radiculopathy, lumbar region Category: Medical (2) Chronic pain syndrome: Code(s): G89.4 - Chronic pain syndrome Category: Medical (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 Informed consent was thoroughly explained to the patient before the procedure.? The patient came to the operating room.? He was positioned prone on operating table with a pillow under his abdomen.? Time-out was performed delineating correct site and side of the procedure, nature of the injection, name and date of of the patient. The lower back of the patient was prepped with ChloraPrep and draped with sterile utility towels.? C-arm was brought over the operating field and sq picture of L5 vertebra was demonstrated on the screen. The left lamina of L5 was chosen as start of the procedure, 2 mm below the upper border of L5 lamina projection to the skin on the left injection of the local anesthetic lidocaine 1% was performed. After that Touhy needle was inserted through the skin wheal and advanced toward the L4-5 interlaminar epidural space under loss of resistance to air technique on intermittent anterior posterior and lateral views. When loss of resistance was felt injection of the contrast was performed demonstrating epidural spread of the contrast. After that 5 cc of 1% lidocaine preservative-free mixed with Kenalog 40 mg was injected into the epidural space. Upon completion of the procedure sterile Band-Aids were applied. Patient tolerated procedure well he was taken outside of the operating room where he recovered uneventfully.? He went home without immediate complications. Orders: Orders FL guidance in treatment room Today M54.16 - Radiculopathy, lumbar region Coding Level of Care Code Procedure Only Diagnoses Radiculopathy, lumbar region M54.16 Chronic pain syndrome G89.4 Spondylosis of lumbar region without myelopathy or radiculopathy M47.816 Disc degeneration, lumbar M51.36
[2023-08-21 12:02] VITALS: BP 130/86; PULSE 68; RESP 16; O2SAT 94
== END 2023-08-21 11:58 | disposition home or self-care (01) ==
LOC: HO.PMCPRC 11:00
PROVIDERS: PCP Family Medicine; Visit Provider Anesthesiology
DX: M54.16 Radiculopathy, lumbar region (principal)
CPT/HCPCS: 62323

== ENCOUNTER 2023-09-12 08:24 | Outpatient (AMB) | payer MEDICAID, SELFPAY ==
--- NOTE | 2023-09-12 09:13 | A.OFFVIS_ITS ---
Vital Signs 09/12/23 09:23 Height 5 ft Weight 170 lb 4 oz BMI 33.2 BP 136/62 Blood Pressure Location Lt brachial Position Sitting Respiration 14 Pulse 63 Pulse Source Pulse Oximeter Pulse Oximetry (%) 99 Oxygen Delivery Method Room Air Intake Visit Reasons: L4,L5 INTERLAMINAR MAXIMILIAN Intake Note: Patient comes in for post-op appointment. Reports pain 8/10. Allergies tramadol Allergy (Unknown, Verified 09/12/23 09:23) itching No Known Allergies Allergy (Verified 09/12/23 09:23) HPI Comments Details: Todd is back in my office for the follow-up after interlaminar L4-5 epidural steroid injection. He feels certainly about 50% pain relief. He reports better night sleep. He reports better mobility and better activities of daily living. The injection was performed almost 1 month ago on 08/21/2023. I told him that we can repeat this procedure once in 3 months. I hope this pain relief will last 3 months or longer. When his pain will come back to pre- injection level he will give us a call and I will schedule him for yet another L 4-5 interlaminar epidural steroid injection. I also recommended him to try alpha lipoic acid there are some documents and informations available that this vitamin helps radicular pain. Prior: He reported that his pain started many years ago, he was under care of this office in the past and received multiple injections in this office. He had medial branch blocks performed and transforaminal epidural steroid injections performed with moderate pain relief he was subject of the MRI available to me 4 years ago on which the were L2-L3 minimal disc bulge moderate facet arthrosis L4 L3 diffuse disc bulge concentric to the right moderate facet arthrosis, ligamentous hypertrophy central canal stenosis mild in nature and neural foraminal right greater than left stenosis. L4-5 arthrosis ligamentous hypertrophy mild canal stenosis mild narrowing of neural foramina L5-S1 disc osteophyte complex small central and right foraminal disc protrusions moderate facet arthrosis and ligamentum flavum hypertrophy central canal narrowing and moderate narrowing of neural foramina. However in the past few years he was under care of [facility] he received injections Those injections were: Left L4-5 interlaminar injection 08/12/2020 Reports good results bilateral L4-5 and L5-S1 intra-articular facet joint injections 11/10/2020 Reports moderate results less than 40% pain improvement Repeat bilateral L4-5 L5-S1 intra-articular facet joint injections 04/06/2021 Reports moderate results. Bilateral L4-5 L5-S1 intra-articular facet joint injections 07/20/2021 Reports moderate results. L4-5 interlaminar epidural steroid injection 08/18/2021 Reports no improvement Bilateral L4-5 L5-S1 facet joint injections 10/12/2021 Reports no improvement Trial of spinal cord stimulator [employer] 05/18/2022 Reports loss of stimulation secondary to the leads migration When I was asking him what injection were helping him he said that all of the injections were very helpful. He wants to try both medial branch blocks as well as interlaminar epidural steroid injections. I decided to go with L4-5 interlaminar epidural steroid injection 1st. 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 [facility] Medical History Polysubstance abuse Social History Alcohol intake: unknown Substance Use Type: Heroin Review of Systems Const All systems reviewed & are unremarkable except as noted in HPI and below ENT Reports Normal hearing present Neuro Reports Normal hearing present, Denies Abnormal speech present, Denies confusion and Denies Sensory deficit (Neuro) Psych Denies confusion Physical Exam Vital Signs: Last Vital Signs Pulse 63 09/12/23 09:23 Resp 14 09/12/23 09:23 BP 136/62 09/12/23 09:23 Pulse Ox 99 09/12/23 09:23 Oxygen Delivery Method Room Air 09/12/23 09:23 BMI result Body Mass Index 33.2 Const General: no acute distress; No confusion Orientation/consciousness: patient oriented x3 and No confusion Eyes General: appearance normal, both eyes and all related structures Pupils: Equal, round and reactive pupils present EOM: EOMs intact bilaterally Neck Neck: Yes full ROM Chest Chest palpation & inspection: normal inspection of the chest Resp Effort & Inspection: normal respiratory effort, able to speak in complete sentences, normal respiratory pattern, no audible wheezes and no cough Cardio Jugular venous distension: no JVD GI Inspection: Yes normal to inspection Back/Spine/Pelvis Other: On physical exam the patient is thin on inspection he assumes leaning forward posture. He reports mild discomfort on straight leg raising however the dorsiflexion of the feet in bilateral fashion does not increase pain in the back. Rosalio test seem to be positive however the palpation of the sacroiliac joint projection to the skin on the patient's back results in no tenderness on palpation. Pelvic compression and pelvic distraction test are also equivocal. Palpation of the lumbar spine and lower thoracic spine is tender on paraspinal spinal regions. Muscular strength of bilateral lower extremity seem to be symmetrical. There is no sensation deficits. Valsalva is positive for pain increase. He denies incontinence with urine endorse stool he denies urinary retention. Neuro General: patient oriented x3, gait normal and No confusion Cranial nerves: Yes CN's II-XII intact bilaterally, Yes Equal, round and reactive pupils present, Yes Normal hearing present and Yes Ability to bilaterally elevate shoulders present Speech: No Abnormal speech present Gait exam (Neuro): Normal gait present Motor exam (neuro): 5/5 motor strength present throughout Sensory Exam: No Sensory deficit (Neuro) Extrem General: No pedal edema Psych Speech and movement: Normal speech and movement present Affect: normal affect Attitude: cooperative Thought process: Normal thought process present Thought content: Normal thought content present Insight: Good insight present (Psych) Judgement: Good judgement present (Psych) Assessment & Plan Assessment & Plan (1) Polysubstance abuse: Code(s): F19.10 - Other psychoactive substance abuse, uncomplicated Category: Medical (2) Disc degeneration, lumbar: Code(s): M51.36 - Other intervertebral disc degeneration, lumbar region Category: Medical (3) Spondylosis of lumbar region without myelopathy or radiculopathy: Code(s): M47.816 - Spondylosis without myelopathy or radiculopathy, lumbar region Category: Medical (4) Chronic pain syndrome: Code(s): G89.4 - Chronic pain syndrome Category: Medical (5) Radiculopathy, lumbar region: Code(s): M54.16 - Radiculopathy, lumbar region Category: Medical Plan Good results of interlaminar epidural steroid injection L4-5. One month since t he previous injection. I will see this patient as needed if he wants to repeat the injection in 3 months or longer he needs to give us a call and schedule the procedure. Alpha lipoic acid as a vitamin 200 mg was recommended to for the patient to try as a supplement to help his pain. Patient Instructions: I here by testify that I spent 30 minutes in conversation with this patient as well as planning his care and organizing this note. Coding Level of Care Code Est Pt Level 4 (35051) Diagnoses Polysubstance abuse F19.10 Disc degeneration, lumbar M51.36 Spondylosis of lumbar region without myelopathy or radiculopathy M47.816 Chronic pain syndrome G89.4 Radiculopathy, lumbar region M54.16
[2023-09-12 09:23] VITALS: BP 136/62; PULSE 63; RESP 14; O2SAT 99; BMI 33.2
== END 2023-09-12 09:43 | disposition home or self-care (01) ==
PROVIDERS: PCP Family Medicine; Referring Provider Family Medicine; Visit Provider Anesthesiology
DX: F19.10 Other psychoactive substance abuse, uncomplicated (principal); M51.36 Other intervertebral disc degeneration, lumbar region; M47.816 Spondylosis without myelopathy or radiculopathy, lumbar region; G89.4 Chronic pain syndrome; M54.16 Radiculopathy, lumbar region
CPT/HCPCS: 99214

== ENCOUNTER → 2023-09-12 08:24 | Outpatient (BNVA) | payer MEDICAID, SELFPAY | PROVIDERS: PCP Family Medicine; Visit Provider Anesthesiology | DX: M51.36 Other intervertebral disc degeneration, lumbar region (principal); M54.16 Radiculopathy, lumbar region; M47.816 Spondylosis without myelopathy or radiculopathy, lumbar region; F19.10 Other psychoactive substance abuse, uncomplicated; G89.4 Chronic pain syndrome | CPT/HCPCS: 99212 ==

== ENCOUNTER 2023-10-11 12:06 | Emergency (ER) | payer MEDICAID, SELFPAY ==
--- NOTE | ~2023-10-11 | XR_ITS ---
EXAMINATION: XR TIBIA AND FIBULA, LEFT CLINICAL INFORMATION: Pain. Laceration and swelling. COMPARISON: None available. TECHNIQUE: 4 views of the left tibia and fibula were obtained. XR/XR tibia fibula LT 2V FINDINGS / IMPRESSION: There is no fracture or dislocation. Limited views of the knee and ankle joints demonstrate normal alignment. There is lower extremity edema. There is no radiopaque foreign object within the soft tissues.
--- NOTE | ~2023-10-11 | US_ITS ---
EXAMINATION: US VENOUS ULTRASOUND WITH DOPPLER LOWER EXTREMITY, LEFT CLINICAL INFORMATION: COMPARISON: None available. TECHNIQUE: Ultrasound of the deep veins is performed from the hip to the calf with compression sonography and color and pulse Doppler assessment. Spectral analysis with color-flow imaging is performed. FINDINGS: There is normal venous compression and respiratory variation and augmented flow. The visualized common femoral vein, superficial femoral vein, profunda femoral vein, popliteal vein, and the trifurcation region shows no evidence of deep venous thrombosis. There is no significant popliteal fossa cyst. There are several enlarged lymph nodes within the subcutaneous tissues of the left groin. The larger measures 4.4 x 1.0 x 2.4 cm. If the patient's symptoms persist, followup ultrasound in 5 days 7 days might be of value to exclude proximal propagation from a non-visualized calf vein. US/US venous duplex LE LT IMPRESSION: No DVT demonstrated in the left lower extremity. Enlarged left groin lymph nodes.
[2023-10-11 12:09] VITALS: BP 129/64; PULSE 71; RESP 17; TEMP 36.8; O2SAT 96; BMI 24.7
--- NOTE | 2023-10-11 12:17 | ED_ITS ---
HPI - General Adult General Stated complaint: l leg pain Related Data Allergies Allergy/AdvReac Type Severity Reaction Status Date / Time tramadol Allergy Unknown itching Verified 10/11/23 12:21 PMFSH Past Medical History Medical History Polysubstance abuse Social History Social History Alcohol intake: unknown Substance Use Type: Heroin Course Course Course Narrative: This is an RME: Additional HPI, ROS, PE not included below will be deferred to primary provider. RME assessment and note performed by: Maddison Mota PA-C This is a 85-mmpr-pfn-male, with a hx of polysubstance abuse, who presented to the ER with complaints of left leg swelling and pain. Reports that he lacerated his left mello on a piece of metal 1 week ago. Has had increased redness, swelling, and pain to his left leg since. 2cm laceration noted to left mello, no active drainage. TTP, induration and warmth noted. Unknown last tetanus Plan: Labs, Xray, further ER evaluation needed. Discharge Plan Discharge Print Language: Bahraini
[2023-10-11 12:56] LABS: MANUAL DIFF FLAG NO
[2023-10-11 12:58] LABS: Basophils Absolute Auto 0.1 X10*3/uL (0.0-0.2); Basophils Percent Auto 0.6 % (0-2); Eosinophils Absolute Auto 0.2 X10*3/uL (0.0-0.4); Hematocrit 40.4 % (42.0-52.0); Hemoglobin 13.2 g/dl (14.0-18.0); Imm Gran Abs Auto 0.02 X10*3/uL (0.00-0.03); Imm Gran Pct Auto 0.3 % (0.0-0.4); Lymphocytes Absolute Auto 1.7 X10*3/uL (1.2-4.9); Lymphocytes Percent Auto 22.4 % (20-40); Mean Corpuscular HGB Conc 32.7 g/dl (31.0-36.0); Mean Corpuscular Hemoglobin 29.2 pg (27.0-33.0); Mean Corpuscular Volume 89.4 fL (80.0-98.0); Mean Platelet Volume 9.3 fL (9.4-12.4); Monocytes Absolute Auto 0.5 X10*3/uL (0.1-1.2); Monocytes Percent Auto 6.6 % (2-11); Neutrophils Absolute Auto 5.2 x10*3/uL (2.0-8.3); Neutrophils Percent Auto 67.1 % (45-73); Platelet Count 180 X10*3/uL (160-400); Red Blood Count 4.52 X10*6/uL (4.60-5.80); Red Cell Distribution Width 13.3 % (11.0-16.0); White Blood Count 7.8 X10*3/uL (4.8-10.8)
[2023-10-11 13:15] LABS: Alanine Aminotransferase 16 U/L (0-40); Albumin Level 4.3 g/dL (3.5-5.0); Alkaline Phosphatase 72 U/L (39-117); Anion Gap 11 (12-20); Aspartate Amino Transferase 18 U/L (5-37); Bilirubin Direct 0.2 mg/dL (0.0-0.5); Bilirubin Total 0.5 mg/dL (0.0-1.0); Blood Urea Nitrogen 18 mg/dL (9-16); C Reactive Protein 2.09 mg/dL (< or = 0.50); Calcium 9.4 mg/dL (8.4-10.2); Carbon Dioxide 30 mmol/L (22-29); Chloride 105 mmol/L (96-108); Creatinine Clr Calc Pharmacy 86.9; Estimated Glomerular Filt Rate > 60; Glucose Random 102 mg/dL (60-115); Potassium 4.4 mmol/L (3.3-5.1); Sodium 142 mmol/L (135-145); Total Protein 7.2 g/dL (6.5-8.0)
[2023-10-11 13:47] LABS: Erythrocyte Sedimentation Rate 17 MM/HR (0-15)
[2023-10-11 19:56] VITALS: BP 132/69; PULSE 80; RESP 17; TEMP 36.8; O2SAT 100
[2023-10-11 20:20] VITALS: BP 134/70; PULSE 81; RESP 18; TEMP 36.6; O2SAT 99
--- NOTE | 2023-10-11 21:21 | ED.EXTPRO ---
HPI - Extremity Problem General Chief complaint: Extremity Problem Stated complaint: l leg pain Time Seen by Provider: 10/11/23 20:21 Source: patient Mode of arrival: ambulatory Limitations: no limitations History of Present Illness ED Provider: connor HPI Narrative: Patient apparently got scraped l left mello by a metal about a week ago comes here with increased tenderness swelling and redness of the left leg no fever no chills patient is not diabetic had Doppler done prior to my evaluation which was negative for DVT Related Data Previous Rx's ?Medication ?Instructions ?Recorded cephalexin 500 mg capsule 500 mg PO QID 10 days #40 caps 10/11/23 doxycycline hyclate 100 mg tablet 100 mg PO BID #20 tabs 10/11/23 Allergies Allergy/AdvReac Type Severity Reaction Status Date / Time tramadol Allergy Unknown itching Verified 10/11/23 12:21 Review of Systems Review of Systems: Yes all other systems are reviewed and are negative [facility] Past Medical History Medical History Polysubstance abuse Social History Social History Alcohol intake: unknown Substance Use Type: Heroin Advance Directives: No Advance Directives Information Provided: Yes Do you have a plan to hurt others: No Plan Physical Exam Vital Signs: Vital Signs: Last Vital Signs Temp 98 F 10/11/23 20:20 Pulse 81 10/11/23 20:20 Resp 18 10/11/23 20:20 BP 134/70 10/11/23 20:20 Pulse Ox 99 10/11/23 20:20 O2 Del Method Room Air 10/11/23 20:20 BMI result Body Mass Index 24.7 Appearance: Alert. Oriented X3. No acute distress. CVS: Normal heart rate and rhythm. Pulses normal. Respiratory: No respiratory distress. Equal air entry bilateral, Abdomen: Soft and nontender. Bowel sounds are present, Skin: Skin warm and dry. Normal skin color. Normal skin turgor. Extremities: Left mello open wound with erythema and swelling around no pus discharge No calf tenderness Neuro: Oriented X 3. No motor deficit. Medical Decision Making Medical Decision Making MDM Narrative: Patient has infected wound left mello x-ray negative for periosteal involvement wound cleaned and dressing applied will give him p.o. doxycycline cephalexin patient advised to come back in 2 days for wound recheck Differential Diagnosis Differential Diagnoses: The differential diagnosis associated with the presentation includes Infected wound/cellulitis/DVT Lab Data MDM Lab Attestation statement: I reviewed the patient's lab results. 10/11/23 12:50 10/11/23 12:50 Labs: Lab Results 10/11/23 Range/Units 12:50 WBC 7.8 (4.8-10.8) X10*3/uL RBC 4.52 L (4.60-5.80) X10*6/uL Hgb 13.2 L (14.0-18.0) g/dl Hct 40.4 L (42.0-52.0) % MCV 89.4 (80.0-98.0) fL MCH 29.2 (27.0-33.0) pg MCHC 32.7 (31.0-36.0) g/dl RDW 13.3 (11.0-16.0) % Plt Count 180 (160-400) X10*3/uL MPV 9.3 L (9.4-12.4) fL Immature Gran % (Auto) 0.3 (0.0-0.4) % Neut % (Auto) 67.1 (45-73) % Lymph % (Auto) 22.4 (20-40) % [place] % (Auto) 6.6 (2-11) % Eos % (Auto) 3.0 (0-4) % Baso % (Auto) 0.6 (0-2) % Lymph # (Auto) 1.7 (1.2-4.9) X10*3/uL [place] # (Auto) 0.5 (0.1-1.2) X10*3/uL Eos # (Auto) 0.2 (0.0-0.4) X10*3/uL Baso # (Auto) 0.1 (0.0-0.2) X10*3/uL Abs Immat Gran (auto) 0.02 (0.00-0.03) X10*3/uL Absolute Neuts (auto) 5.2 (2.0-8.3) x10*3/uL Absolute Nucleated RBC 0.000 (0.0-0.012) X10*3/uL Nucleated RBC % (auto) 0.0 (0.0-0.2) /100WBC ESR 17 H (0-15) MM/HR Sodium 142 (135-145) mmol/L Potassium 4.4 (3.3-5.1) mmol/L Chloride 105 (96-108) mmol/L Carbon Dioxide 30 H (22-29) mmol/L Anion Gap 11 L (12-20) BUN 18 H (9-16) mg/dL Creatinine 0.87 (0.5-1.4) mg/dL Estim Creat Clear Calc 86.9 Estimated GFR > 60 Random Glucose 102 (60-115) mg/dL Calcium 9.4 (8.4-10.2) mg/dL Total Bilirubin 0.5 (0.0-1.0) mg/dL Direct Bilirubin 0.2 (0.0-0.5) mg/dL AST 18 (5-37) U/L ALT 16 (0-40) U/L Alkaline Phosphatase 72 (39-117) U/L C-Reactive Protein 2.09 H (< or = 0.50) mg/dL Total Protein 7.2 (6.5-8.0) g/dL Albumin 4.3 (3.5-5.0) g/dL Independent Interpretation I performed an independent interpretation of an: Ultrasound Radiology Impression Discussion of test interpretation with radiology: I have reviewed the radiologist's reading. Discharge Plan Discharge Clinical Impression: Traumatic open wound of left lower leg with infection Patient Disposition: Home, Self-Care Instructions: Wound Infection (ED) Additional Instructions: Local care of the wound as advised Take antibiotic as prescribed Come to the ED to recheckthe wound in 2 days Prescriptions: New cephalexin 500 mg capsule 500 mg PO QID 10 Days Qty: 40 0RF doxycycline hyclate 100 mg tablet 100 mg PO BID Qty: 20 0RF Print Language: Belarusian
[2023-10-11] MEDS: Diphth,Pertus(ACell),Tet Adult 0.5 ML SYRINGE IM (21:25)
[2023-10-11] MEDS: Doxycycline Monohydrate 100 MG CAPSULE PO (21:26)
[2023-10-11] MEDS: cephALEXin 500 MG CAPSULE PO (21:26)
[2023-10-11 21:36] VITALS: BP 134/70; PULSE 81; RESP 18; TEMP 36.6; O2SAT 99
== END 2023-10-11 21:37 | disposition home or self-care (01) ==
PROVIDERS: Physician Assistant Medical; Emergency Provider Internal Medicine; PCP Family Medicine
DX: S81.802A Unspecified open wound, left lower leg, initial encounter (principal); L08.9 Local infection of the skin and subcutaneous tissue, unspecified; W45.8XXA Other foreign body or object entering through skin, initial encounter; Y93.9 Activity, unspecified; Y92.9 Unspecified place or not applicable; Y99.9 Unspecified external cause status
CPT/HCPCS: 36415; 73590; 80048; 80076; 85025; 85652; 86140; 87040; 90471; 90715; 93971; 99283; 99284

== ENCOUNTER 2023-10-12 19:32 | Emergency (ER) | payer MEDICAID, SELFPAY ==
[2023-10-12 19:39] VITALS: BP 119/66; PULSE 73; RESP 18; TEMP 36.8; O2SAT 96; BMI 23.0
--- NOTE | 2023-10-12 19:39 | ED.GENADULT ---
HPI - General Adult General Stated complaint: leg swelling, here yesterday Source: patient Mode of arrival: ambulatory Limitations: no limitations History of Present Illness HPI narrative: Patient is a 62-year-old male who presents to the emergency department for evaluation of a wound to the left anterior mello. He reports scraping on a metal lateral proximally 1 week ago. States he was seen in the emergency department yesterday, given a course of antibiotics, but felt that today the swelling and redness was worse. denies any re-injury. Denies fevers, chills. He admits that he has not been elevating his leg, it has been going up and down the stairs frequently for multiple different reasons Related Data Previous Rx's ?Medication ?Instructions ?Recorded cephalexin 500 mg capsule 500 mg PO QID 10 days #40 caps 10/11/23 doxycycline hyclate 100 mg tablet 100 mg PO BID #20 tabs 10/11/23 Allergies Allergy/AdvReac Type Severity Reaction Status Date / Time tramadol Allergy Unknown itching Verified 10/12/23 19:41 Review of Systems Review of Systems: Yes all other systems are reviewed and are negative [facility] Past Medical History Attestation statement: The following information was validated with the patient. Source: old records reviewed Medical History Polysubstance abuse Social History Social History Alcohol intake: unknown Substance Use Type: Heroin Physical Exam ED Appearance: Alert.?Oriented to person, place and time. No acute distress.?Normal affect. CVS: Heart sounds normal. Normal heart rate and rhythm.? Pulses normal.?? Respiratory: No respiratory distress.? Lung sounds clear to auscultation bilaterally?? Skin: Skin warm and dry.? Normal skin color.? ? Extremities: 1+ pitting edema to left lower extremity and ankle. Mildly warm to the touch, surrounding erythema, open wound to the left anterior mello, no active drainage or pus..? No calf ttp? Neuro: Moves all extremities spontaneously. Sensation intact bilaterally. . Ambulates with slow antalgic gait. Medical Decision Making Medical Decision Making MDM Narrative: Patient is a 62-year-old male who presents to the emergency department for evaluation of left anterior mello as per HPI. Medical record, venous duplex ultrasound which was without evidence of DVT, XR without evidence of osseous abnormality. Fortunately, the provider whom he saw yesterday is present today, my attending Dr. Zavala, who confirms that the lower extremity in fact actually looks better. Dr. Zavala examined patient as well, and patient now states that it is in fact better, but he wanted the dressing changed. Advised continued use of antibiotics as prescribed, daily dressing changes, elevation of the extremity. Verbalizes understanding. Stable for discharge, discussed outpatient follow-up with primary care provider Differential Diagnosis Differential Diagnoses: The differential diagnosis associated with the presentation includes (See narrative above) External Record Review External record reviewed: Outpatient record Prescription Management I considered prescription management with: Antibiotic (Already prescribed) Discharge Plan Discharge Clinical Impression: Traumatic open wound of left lower leg with infection Patient Disposition: Home, Self-Care Instructions: Wound Infection (ED) Additional Instructions: Complete the entire course of antibiotics as previously prescribed. Dressing changes daily. Be sure to rest, elevate the leg. Follow-up with primary care provider. Return back to emergency department any new or worsening symptoms or concerns Prescriptions: No Action cephalexin 500 mg capsule 500 mg PO QID 10 Days Qty: 40 0RF doxycycline hyclate 100 mg tablet 100 mg PO BID Qty: 20 0RF Referrals: Socorro Lyon MD [Primary Care Provider] - Print Language: Japanese
[2023-10-12 20:16] VITALS: BP 119/66; PULSE 73; RESP 18; TEMP 36.8; O2SAT 96
== END 2023-10-12 20:16 | disposition home or self-care (01) ==
PROVIDERS: Emergency Provider Internal Medicine; PCP Family Medicine
DX: L03.116 Cellulitis of left lower limb (principal); R60.0 Localized edema
CPT/HCPCS: 99282

== ENCOUNTER 2023-10-28 13:06 | Emergency (ER) | payer MEDICAID, SELFPAY ==
[2023-10-28 13:16] VITALS: BP 132/63; PULSE 89; RESP 18; TEMP 36.6; O2SAT 99; BMI 24.8
--- NOTE | 2023-10-28 13:16 | ED_ITS ---
HPI - Wound/Laceration General Chief Complaint: Wound/Laceration Stated Complaint: L leg lac not getting better Time Seen by Provider: 10/28/23 13:21 Source: patient Mode of arrival: ambulatory Limitations: no limitations History of Present Illness ED Provider: Polina Martinez APRN HPI narrative: 62 yo male with no known medical history here with complaints of left leg wound. Here 2 weeks ago for laceration on left leg. Area was infected and he was prescribed oral antibiotics Took 4 days of cephalexin/doxycycline but then stopped because of an upset stomach. He may have lost them. No fevers, chills, body aches, vomiting. Related Data Previous Rx's ?Medication ?Instructions ?Recorded cephalexin 500 mg capsule 500 mg PO QID 10 days #40 caps 10/11/23 doxycycline hyclate 100 mg tablet 100 mg PO BID #20 tabs 10/11/23 bacitracin zinc 500 unit/gram 1 appl topical DAILY #14 grams 10/28/23 topical ointment cephalexin 500 mg capsule 500 mg PO BID #20 caps 10/28/23 doxycycline monohydrate 100 mg 100 mg PO BID #20 caps 10/28/23 capsule Allergies Allergy/AdvReac Type Severity Reaction Status Date / Time tramadol Allergy Unknown itching Verified 10/28/23 13:17 Review of Systems Review of Systems: Yes all other systems are reviewed and are negative Constitutional: Constitutional: Reports no additional constitutional complaints, Denies body ache(s), Denies chills, Denies fever(s), Denies headache(s) and Denies weakness Eyes: Eyes: Reports no additional eye complaints and Denies change in vision ENT: Reports system reviewed and no additional complaints, except as documented, Denies dizziness, Denies headache(s), Denies nasal congestion, Denies nasal discharge and Denies neck pain Cardiovascular: Cardiovascular: Reports no additional cardiovascular complaints, Denies chest pain, Denies leg edema and Denies dyspnea Respiratory: Respiratory: Reports no additional respiratory complaints, Denies cough and Denies dyspnea Gastrointestinal: Gastrointestinal: Reports no additional gastrointestinal complaints, Denies abdominal pain, Denies diarrhea, Denies nausea and Denies vomiting Genitourinary: Genitourinary: Denies urinary incontinence Musculoskeletal: Musculoskeletal: Reports no additional musculoskeletal complaints, Denies back pain, Denies arthralgias, Denies joint swelling, Denies neck pain, Denies numbness and Denies tingling Integumentary/Breasts: Skin/Breast: Reports system reviewed and no additional complaints, except as docu, Denies rash and Reports wounds Neurologic: Reports system reviewed and no additional complaints, except as documented, Denies Abnormal speech present, Denies dizziness, Denies headache(s), Denies numbness, Denies tingling and Denies weakness PMFSH Past Medical History Attestation statement: The following information was validated with the patient. Source: old records reviewed and nursing notes reviewed Medical History Polysubstance abuse Social History Social History Alcohol intake: unknown Substance Use Type: Heroin Do you have a plan to hurt others: No Plan Physical Exam Vital Signs: Vital Signs: Last Vital Signs Temp 97.9 F 10/28/23 13:16 Pulse 89 10/28/23 13:16 Resp 18 10/28/23 13:16 BP 132/63 10/28/23 13:16 Pulse Ox 99 10/28/23 13:16 O2 Del Method Room Air 10/28/23 13:16 BMI result Body Mass Index 24.8 Const: General: cooperative, healthy appearing, comfortable and no acute distress Orientation/consciousness: patient oriented x3 Limitations: no limitations HEENT: Head: Yes normal to inspection Ears: hearing grossly normal bilaterally General nose exam: Normal external nose present Face and sin us: Yes normal facial exam Mouth: Normal oral and palatal mucosa present Throat: Yes posterior oropharynx normal Eyes: General: appearance normal, both eyes and all related structures Pupils: Equal, round and reactive pupils present Neck: Neck: Yes normal visual inspection Chest: Chest palpation & inspection: normal inspection of the chest Resp: Effort & Inspection: normal respiratory effort Auscultation: clear to auscultation bilaterally Cardio: Rate: regular rate Rhythm: regular rhythm Peripheral pulses: Peripheral pulses 2+ throughout GI: Inspection: Yes normal to inspection Palpation (GI): Soft to palpation and nontender Auscultation: normal bowel sounds Back/Spine/Pelvis: Thoracic/Lumbar Spine: thoracic and lumbar spine normal to inspection Skin: General skin exam: no rashes or lesions noted Neuro: General: patient oriented x3, no focal motor deficits and normal sensat ion to monofilament Cranial nerves: Yes Equal, round and reactive pupils present Cognition (Neuro): normal cognition Speech: No Abnormal speech present Gait exam (Neuro): Normal gait present Motor exam (neuro): 5/5 motor strength present throughout Extrem: Other: To the mid left mello there is an open area with some sloughing in the wound bed, there is surrounding erythema/warmth and swelling. It is not circumferential. Compartments are soft and compressible. Distal pulses present, normal sensation Medical Decision Making Medical Decision Making MDM Narrative: 62 yo male with no known medical history here with complaints of left leg wound. Here 2 weeks ago for laceration on left leg. Area was infected and he was prescribed oral antibiotics Took 4 days of cephalexin/doxycycline but then stopped because of an upset stomach. He may have lost them. No fevers, chills, body aches, vomiting. There is an open wound on the left leg with some surrounding cellulitis however it appears patient has not been compliant with care at home. Patient non toxic and afebrile No need for labs or further imaging. Site was provided with wound care, will recommend taking oral antibiotics, follow-up with PCP Differential Diagnosis Differential Diagnoses: The differential diagnosis associated with the presentation includes wound infection, cellulitis low suspicion for osteo, nec fasc, compartment syndrome, abscess Admission/Observation Consideration of admission/observation: Escalation of care including admission/observation considered Mild cellulitis, no need for admission for IV abx External Record Review External record reviewed: Outside ED record Tests considered The following testing was considered but not selected: see discussion above Prescription Management I considered prescription management with: Antibiotic Discharge Plan Discharge Clinical Impression: Cellulitis Patient Disposition: Home, Self-Care Instructions: Cellulitis (ED) Additional Instructions: Take the antibiotic with food Take all the antibiotic as prescribed Return for worsening symptoms After you shower, pat the area dry, apply a topical antibiotic and then apply a dressing Prescriptions: New cephalexin 500 mg capsule 500 mg PO BID Qty: 20 0RF doxycycline monohydrate 100 mg capsule 100 mg PO BID Qty: 20 0RF bacitracin zinc 500 unit/gram ointment 1 appl topical DAILY Qty: 14 0RF No Action cephalexin 500 mg capsule 500 mg PO QID 10 Days Qty: 40 0RF doxycycline hyclate 100 mg tablet 100 mg PO BID Qty: 20 0RF Referrals: Socorro Lyon MD [Primary Care Provider] - 1 week Print Language: Arabic
[2023-10-28 13:41] VITALS: BP 132/63; PULSE 89; RESP 18; TEMP 36.6; O2SAT 99
== END 2023-10-28 13:41 | disposition home or self-care (01) ==
LOC: HO.ED 13:37
PROVIDERS: Emergency Provider Emergency Medicine; PCP Family Medicine
DX: L03.116 Cellulitis of left lower limb (principal); Z79.899 Other long term (current) drug therapy
CPT/HCPCS: 99282; 99283

== ENCOUNTER 2023-11-16 17:34 | Emergency (ER) | payer MEDICAID, SELFPAY ==
--- NOTE | ~2023-11-16 | XR_ITS ---
EXAMINATION: XR TIBIA AND FIBULA, LEFT CLINICAL INFORMATION: Wound, swelling, question osteomyelitis COMPARISON: None available. TECHNIQUE: AP and lateral views of the left tibia and fibula were obtained. FINDINGS: The bones and soft tissues are normal. No fracture. No osseous lesions. XR/XR tibia fibula LT 2V IMPRESSION: No radiographic evidence of destructive cortical changes to suggest osteomyelitis at this time.
[2023-11-16 17:57] VITALS: BP 108/56; PULSE 78; RESP 16; TEMP 37; O2SAT 99; BMI 24.7
--- NOTE | 2023-11-16 18:02 | ED_ITS ---
HPI - General Adult General Chief complaint: Wound/Laceration Stated complaint: L Lower leg gash w/swelling History of Present Illness HPI narrative: LWCT Related Data Previous Rx's ?Medication ?Instructions ?Recorded cephalexin 500 mg capsule 500 mg PO QID 10 days #40 caps 10/11/23 doxycycline hyclate 100 mg tablet 100 mg PO BID #20 tabs 10/11/23 bacitracin zinc 500 unit/gram 1 appl topical DAILY #14 grams 10/28/23 topical ointment cephalexin 500 mg capsule 500 mg PO BID #20 caps 10/28/23 doxycycline monohydrate 100 mg 100 mg PO BID #20 caps 10/28/23 capsule Allergies Allergy/AdvReac Type Severity Reaction Status Date / Time tramadol Allergy Unknown itching Verified 11/16/23 17:58 PMFSH Past Medical History Medical History Polysubstance abuse Social History Social History Alcohol intake: unknown Substance Use Type: Heroin Advance Directives: No Advance Directives Information Provided: No Physical Exam ED Vital Signs: Vital Signs - 24 hr 11/16/23 17:57 Temperature 98.6 F Pulse Rate 78 Respiratory Rate 16 Blood Pressure 108/56 L Pulse Oximetry 99 Oxygen Delivery Method Room Air BMI result Body Mass Index 24.7 Course Course Course Narrative: This is an RME performed by Bailey Coffey CNP: Additional HPI, ROS, PE not included below will be deferred to primary provider. Patient is a 62-year-old male who presents to the emergency department for evaluation of left lower extremity wounds, healing, month. Has taken multiple courses of antibiotics by his and is now experiencing increased swelling, and pain extending calf. Plan: Labs, XR Medical Decision Making Lab Data 11/16/23 18:19 11/16/23 18:18 Labs: Lab Results 11/16/23 11/16/23 Range/Units 18:18 18:19 WBC 6.9 (4.8-10.8) X10*3/uL RBC 4.11 L (4.60-5.80) X10*6/uL Hgb 12.0 L (14.0-18.0) g/dl Hct 36.6 L (42.0-52.0) % MCV 89.1 (80.0-98.0) fL MCH 29.2 (27.0-33.0) pg MCHC 32.8 (31.0-36.0) g/dl RDW 13.3 (11.0-16.0) % Plt Count 211 (160-400) X10*3/uL MPV 9.6 (9.4-12.4) fL Immature Gran % (Auto) 0.3 (0.0-0.4) % Neut % (Auto) 60.4 (45-73) % Lymph % (Auto) 27.2 (20-40) % [place] % (Auto) 7.6 (2-11) % Eos % (Auto) 3.6 (0-4) % Baso % (Auto) 0.9 (0-2) % Lymph # (Auto) 1.9 (1.2-4.9) X10*3/uL [place] # (Auto) 0.5 (0.1-1.2) X10*3/uL Eos # (Auto) 0.3 (0.0-0.4) X10*3/uL Baso # (Auto) 0.1 (0.0-0.2) X10*3/uL Abs Immat Gran (auto) 0.02 (0.00-0.03) X10*3/uL Absolute Neuts (auto) 4.1 (2.0-8.3) x10*3/uL Absolute Nucleated RBC 0.000 (0.0-0.012) X10*3/uL Nucleated RBC % (auto) 0.0 (0.0-0.2) /100WBC ESR 21 H (0-15) MM/HR Hold Purple Top SEE NOTE Sodium 145 (135-145) mmol/L Potassium 4.4 (3.3-5.1) mmol/L Chloride 107 (96-108) mmol/L Carbon Dioxide 28 (22-29) mmol/L Anion Gap 14 (12-20) BUN 19 H (9-16) mg/dL Creatinine 1.02 (0.5-1.4) mg/dL Estim Creat Clear Calc 74.1 Estimated GFR > 60 Random Glucose 82 (60-115) mg/dL Calcium 9.5 (8.4-10.2) mg/dL Total Bilirubin 0.4 (0.0-1.0) mg/dL AST 19 (5-37) U/L ALT 15 (0-40) U/L Alkaline Phosphatase 73 (39-117) U/L C-Reactive Protein 1.22 H (< or = 0.50) mg/dL Total Protein 7.2 (6.5-8.0) g/dL Albumin 4.2 (3.5-5.0) g/dL Discharge Plan Discharge Clinical Impression: Diagnosis unknown Patient Disposition: Left W/O Completing Treatment Prescriptions: No Action cephalexin 500 mg capsule 500 mg PO QID 10 Days Qty: 40 0RF doxycycline hyclate 100 mg tablet 100 mg PO BID Qty: 20 0RF cephalexin 500 mg capsule 500 mg PO BID Qty: 20 0RF doxycycline monohydrate 100 mg capsule 100 mg PO BID Qty: 20 0RF bacitracin zinc 500 unit/gram ointment 1 appl topical DAILY Qty: 14 0RF Discharge Date/Time: 11/16/23 21:26
[2023-11-16 18:24] LABS: MANUAL DIFF FLAG NO
[2023-11-16 18:38] LABS: Basophils Absolute Auto 0.1 X10*3/uL (0.0-0.2); Basophils Percent Auto 0.9 % (0-2); Eosinophils Absolute Auto 0.3 X10*3/uL (0.0-0.4); Eosinophils Percent Auto 3.6 % (0-4); Hematocrit 36.6 % (42.0-52.0); Imm Gran Abs Auto 0.02 X10*3/uL (0.00-0.03); Imm Gran Pct Auto 0.3 % (0.0-0.4); Lymphocytes Absolute Auto 1.9 X10*3/uL (1.2-4.9); Lymphocytes Percent Auto 27.2 % (20-40); Mean Corpuscular HGB Conc 32.8 g/dl (31.0-36.0); Mean Corpuscular Hemoglobin 29.2 pg (27.0-33.0); Mean Corpuscular Volume 89.1 fL (80.0-98.0); Mean Platelet Volume 9.6 fL (9.4-12.4); Monocytes Absolute Auto 0.5 X10*3/uL (0.1-1.2); Monocytes Percent Auto 7.6 % (2-11); Neutrophils Absolute Auto 4.1 x10*3/uL (2.0-8.3); Neutrophils Percent Auto 60.4 % (45-73); Platelet Count 211 X10*3/uL (160-400); Red Blood Count 4.11 X10*6/uL (4.60-5.80); Red Cell Distribution Width 13.3 % (11.0-16.0); White Blood Count 6.9 X10*3/uL (4.8-10.8)
[2023-11-16 19:12] LABS: Alanine Aminotransferase 15 U/L (0-40); Albumin Level 4.2 g/dL (3.5-5.0); Alkaline Phosphatase 73 U/L (39-117); Anion Gap 14 (12-20); Aspartate Amino Transferase 19 U/L (5-37); Bilirubin Total 0.4 mg/dL (0.0-1.0); Blood Urea Nitrogen 19 mg/dL (9-16); C Reactive Protein 1.22 mg/dL (< or = 0.50); Calcium 9.5 mg/dL (8.4-10.2); Carbon Dioxide 28 mmol/L (22-29); Chloride 107 mmol/L (96-108); Creatinine Clr Calc Pharmacy 74.1; Estimated Glomerular Filt Rate > 60; Glucose Random 82 mg/dL (60-115); Potassium 4.4 mmol/L (3.3-5.1); Sodium 145 mmol/L (135-145); Total Protein 7.2 g/dL (6.5-8.0)
[2023-11-16 19:23] LABS: Erythrocyte Sedimentation Rate 21 MM/HR (0-15)
== END 2023-11-16 21:26 | disposition left against medical advice (07) ==
LOC: HO.ED 20:35
PROVIDERS: Nurse Practitioner Family; Emergency Provider Emergency Medicine
DX: M79.605 Pain in left leg (principal); Z53.21 Procedure and treatment not carried out due to patient leaving prior to being seen by health care provider
CPT/HCPCS: 36415; 73590; 80053; 85025; 85652; 86140; 99281

== ENCOUNTER 2024-05-13 06:11 | Outpatient (REF) | payer MEDICAID, SELFPAY | END 2024-05-13 06:12 | disposition home or self-care (01) | LOC: CF 06:11 | PROVIDERS: Visit Provider Anesthesiology | DX: Z13.89 Encounter for screening for other disorder (principal) ==

== ENCOUNTER 2024-07-15 06:25 | Outpatient (REF) | payer MEDICAID, SELFPAY ==
--- NOTE | ~2024-07-15 | FL_ITS ---
EXAMINATION: FL GUIDANCE ONLY HISTORY: M54.16 - Radiculopathy, lumbar region COMPARISON: None available. TECHNIQUE: Fluoroscopy time: 0.4 minutes. Cumulative Dose: 5.01 mGy. DAP: 0.0871 mGym2 Images: 2. FINDINGS: Images demonstrate a needle and contrast at the L4-5 level. FL/FL guidance in treatment room IMPRESSION: Fluoroscopy during procedure. Please see procedure report for additional information. Electronically signed by: Ole Padilla MD 07/15/2024 11:29 AM EDT
== END 2024-07-15 06:26 | disposition home or self-care (01) ==
LOC: CF 06:25
PROVIDERS: Visit Provider Anesthesiology
DX: M54.16 Radiculopathy, lumbar region (principal); G89.4 Chronic pain syndrome
CPT/HCPCS: 62323; J2003; J3301; Q9967

== ENCOUNTER 2024-07-15 08:53 | Outpatient (AMB) | payer MEDICAID, SELFPAY ==
[2024-07-15 09:02] VITALS: BP 122/53; PULSE 55; RESP 16; O2SAT 97
--- NOTE | 2024-07-15 09:02 | MHC.OFFVIS ---
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 Allergies tramadol Allergy (Unknown, Verified 07/15/24 09:02) itching Medication List - Last Reconciled 07/15/24 by Orin Raman LPN bacitracin zinc 1 appl topical DAILY PFSH Medical History Polysubstance abuse Social History Alcohol intake: unknown Substance Use Type: Heroin Physical Exam Vital Signs: Last Vital Signs Pulse 53 07/15/24 09:56 Resp 16 07/15/24 09:56 BP 125/51 L 07/15/24 09:56 Pulse Ox 100 07/15/24 09:56 Oxygen Delivery Method Room Air 07/15/24 09:56 Assessment & Plan Assessment & Plan (1) Radiculopathy, lumbar region: Code(s): M54.16 - Radiculopathy, lumbar region Category: Medical (2) Chronic pain syndrome: Code(s): G89.4 - Chronic pain syndrome Category: Medical (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 Informed consent was thoroughly explained to the patient before the procedure.? The patient came to the operating room.? He was positioned prone on operating table with a pillow under his abdomen.? Time-out was performed delineating correct site and side of the procedure, nature of the injection, name and date of of the patient. The lower back of the patient was prepped with ChloraPrep and draped with sterile utility towels.? C-arm was brought over the operating field and sq picture of L5 vertebra was demonstrated on the screen. The right lamina of L5 was chosen as start of the procedure, 2 mm below the upper border of L5 lamina projection to the skin on the left injection of the local anesthetic lidocaine 1% was performed. After that Touhy needle was inserted through the skin wheal and advanced toward the L4-5 interlaminar epidural space under loss of resistance to air technique on intermittent anterior posterior and lateral views. When loss of resistance was felt injection of the contrast was performed demonstrating epidural spread of the contrast. After that 5 cc of 1% lidocaine preservative-free mixed with Kenalog 40 mg was injected into the epidural space. Upon completion of the procedure sterile Band-Aids were applied. Patient tolerated procedure well he was taken outside of the operating room where he recovered uneventfully.? He went home without immediate complications. Orders: Orders FL guidance in treatment room Today M54.16 - Radiculopathy, lumbar region Coding Level of Care Code Procedure Only Diagnoses Radiculopathy, lumbar region M54.16 Chronic pain syndrome G89.4 Spondylosis of lumbar region without myelopathy or radiculopathy M47.816 Disc degeneration, lumbar M51.36
--- OUTSIDE RECORDS SUMMARY | 2024-07-15 09:23 | XMS_ITS | Encounter Summary ---
Author Organization [employer] Address [address] [facility] [address] [place] [address] Care Team Providers Care Servicenow Administrator Name Role Phone Socorro Lyon MD Primary Care Provider [phone] Encounter Details Date Type Department Care Team ([facility] st Contact Info) Description 07/11/2024 Population Health Risk Score [facility] ([facility]) Department [address] [id number] Provider, Population Health Generic Social History Tobacco Use Types Packs/Day Years Used Date Smoking Tobacco: Every Day Cigarettes Passive Smoke Exposure: Past Smokeless Tobacco: Never Alcohol Use Standard Drinks/Week Comments Never 0 (1 standard drink = 0.6 oz pur e alcohol) Depression Answer Date Recorded Patient Health Questionnaire-9 Score 0 06/26/2022 Housing Stability Answer Date Recorded What is your housing situation today? I have fadynadege diop 02/19/[address] you li ve. Do you have problems with any of the following? None of the above 02/19/2023 Food Insecurity Answer Date Recorded Within the past 12 months, y ou worried that your food would run out before you got money to buy more: Never True 02/19/2023 Within the past 12 months,th e food you bought just didn't last and you didn't have enough money to get more: Never True Transportation Answer Date Recorded In the past 12 months, has l ack of transportation kept you from medical appts, meetings, work or from getting things needed for daily living? No 02/19/2023 Utilities Answer Date Recorded In the past 12 months, has t he electric, gas, oil or water company threatened to shut off services in your home? No 02/19/2023 Depression Answer Date Recorded Patient Health Questionnaire-2 Score 0 06/26/2022 Sex and Gender Information Value Date Recorded Sex Assigned at Male 02/27/2022 10:16 AM EDT Legal Sex Male 10:16 AM EDT Gender Identity Male 02/27/2022 10:16 AM EDT Sexual Orientation Straight 02/27/2022 10 :16 AM EDT documented as of this encounter Plan of Treatment Not on file documented as of this encounter Visit Diagnoses Not on filedocumented in this encounter Additional Health Concerns Assessment Noted Time PHQ-9 Depression Total Score: 0 06/26/19 23 9:16 AM EST documented as of this encounter Care Teams Servicenow Administrator Relationship Specialty Start Date End Date Socorro Lyon MD [address] [place] [address] PCP - General Family Medicine 04/30/18 documented as of this encounter
--- OUTSIDE RECORDS SUMMARY | 2024-07-15 09:23 | XMS_ITS | Encounter Summary ---
Author Organization [employer] [facility] Address [address] [place] [id number] Care Team Providers Care Field Map Editor Name Role Phone Socorro Lyon MD Primary Care Provider [phone] Reason for Visit * Reason Onset Date Comments Request For Order(s) 08/09/2022 Encounter Details Date Type Department Care Team ([facility] st Contact Info) Description 08/09/2022 Telephone [facility] MEDICINE [address] [place] [address] Socorro Lyon MD [address] [place] [address] Request For Order(s) Social History Tobacco Use Types Packs/Day Years Used Date Smoking Tobacco: Every Day Cigarettes Smokeless Tobacco: Never Alcohol Use Standard Drinks/Week Comments Never 0 (1 standard drink = 0.6 oz pur e alcohol) Depression Answer Date Recorded Patient Health Questionnaire-9 Score 0 06/26/2022 Depression Answer Date Recorded Patient Health Questionnaire-2 Score 0 06/26/2022 Sex and Gender Information Value Date Recorded Sex Assigned at Male 02/27/2022 10:16 AM EDT Legal Sex Male 10:16 AM EDT Gender Identity Male 02/27/2022 10:16 AM EDT Sexual Orientation Straight 02/27/2022 10 :16 AM EDT COVID-19 Exposure Response Date Recorded In the last 10 days, have yo u been in contact with someone who was confirmed or suspected to have Coronavirus/COVID-19? No / Unsure 07/19/2022 9:06 AM EDT documented as of this encounter Miscellaneous Notes * Telephone Encounter - Nazia Thomas RN - 08/16/2022 12:35 PM EDT Order signed by PCP and faxed to [employer] * Telephone Encounter - Nazia Thomas RN - 08/16/2022 9:50 AM EDT Call to [employer]. They originally received a handwritten order that was missing a signature. Printed out electronic order and placed on PCP desk for signature as they are still requesting a handwritten signature with electronic signature. * Telephone Encounter - Vimal Martinez - 08/09/2022 3:39 PM EDT Tc from bob with [email or web address] Requesting an sign order by PCP. Reference number - [id number] Please contact bob at [phone] documented in this encounter Plan of Treatment Not on file documented as of this encounter Visit Diagnoses Not on filedocumented in this encounter Additional Health Concerns Assessment Noted Time PHQ-9 Depression Total Score: 0 06/26/19 23 9:16 AM EST documented as of this encounter Care Teams Field Map Editor Relationship Specialty Start Date End Date Socorro Lyon MD [address] [place] [id number] PCP - General Family Medicine 04/30/18 documented as of this encounter
--- OUTSIDE RECORDS SUMMARY | 2024-07-15 09:23 | XMS_ITS | Encounter Summary ---
Author Organization [employer] Address [address] [place] [address] [address] [place] [address] Care Team Providers Care Vascular Sonographer Name Role Phone Socorro Lyon MD Primary Care Provider [phone] Encounter Details Date Type Department Care Team (Late st Contact Info) Description 09/18/2022 Orders Only [facility] MEDICINE [address] [place] [address] Socorro Lyon MD [address] [place] [address] Lumbar disc disease with radiculopathy (Primary Dx); Degeneration of lumbosacral intervertebral disc; Chronic bilateral low back pain, unspecified whether sciatica present; Positive colorectal cancer screening using Cologuard test Social History Tobacco Use Types Packs/Day Years [...] suspected to have Coronavirus/COVID-19? No / Unsure 09/19/2022 1:20 PM EDT documented as of this encounter Plan of Treatment Not on file documented as of this encounter Visit Diagnoses Diagnosis Lumbar disc disease with radiculopathy- Primary Degeneration of lumbosacral intervertebral disc Degeneration of lumbar or lumbosacral intervertebral disc Chronic bilateral low back pain, unspecified whether sciatica present Positive colorectal cancer screening using Cologuard test documented in this encounter Additional Health Concerns Assessment Noted Time PHQ-9 Depression Total Score: 0 06/26/19 23 9:16 AM EST documented as of this encounter Care Teams Vascular Sonographer Relationship Specialty Start Date End Date Socorro Lyon MD [address] [place] [address] PCP - General Family Medicine 04/30/18 documented as of this encounter
--- OUTSIDE RECORDS SUMMARY | 2024-07-15 09:23 | XMS_ITS | Encounter Summary ---
Author Organization [employer] Address [address] [place] [address] [address] [place] [address] Care Team Providers Care Butadiene Converter Helper Name Role Phone Socorro Lyon MD Primary Care Provider [phone] Encounter Details Date Type Department Care Team (Late st Contact Info) Description 04/21/2022 Orders Only [facility] MEDICINE [address] [place] [address] Socorro Lyon MD [address] [place] [address] Degeneration of lumbosacral intervertebral disc (Primary Dx); Chronic bilateral low back pain, unspecified whether sciatica present Social History Tobacco Use Types Packs/Day Years Used Date Smoking Tobacco: Never Assessed Sex and Gender Information Value Date Recorded Sex Assigned at Male 02/27/2022 10:16 AM EDT Legal Sex Male 10:16 AM EDT Gender Identity Male 02/27/2022 10:16 AM EDT Sexual Orientation Straight 02/27/2022 10 :16 AM EDT documented as of this encounter Plan of Treatment Not on file documented as of this encounter Procedures Procedure Name Priority Date/Time Associated Diagnosis Comments COVID-19 ID NOW (RIZVI) Routine 05/17/2022 9:02 AM EST Degeneration of lumbosacral intervertebral disc documented in this encounter Results * COVID-19 ID NOW (RIVZI) (05/17/2022 9:02 AM EST) IDNOW SERIAL# [id number] [facility] COVID-19 TEST Negative Negative [facility] COVID-19 NOTE See Note [facility] Comment: Results are for the identification of SARS-CoV2 RNA. TheSARS-CoV2 RNA is generally detectable in respiratory samplesduring the acute phase of infection. Positive results areindicative of the presence of SARS-CoV-2 RNA; clinicalcorrelation with patient history and other diagnosticinformation is necessary to determine patient infectionstatus. Positive results do not rule out bacterial infectionor co- infection with other viruses.Testing facilities within the [facility] and [facility] are required to report all positive results tothe appropriate public health authorities.Negative results should be treated as presumptive and, ifinconsistent with clinical signs and symptoms or necessaryfor patient management, should be tested with differentauthorized or cleared molecular tests. Negative results donot preclude SARS-CoV2 RNA infection and should not be usedas the sole basis for patient management decisions. Negativeresults should be considered in the context of a patient'srecent exposures, history and the presence of clinical signsand symptoms consistent with COVID-19.This test has been authorized by the FDA under an EmergencyUse Authorization (EUA) for use by authorized laboratories.Testing performed on the [employer] ID NOW utilizing NAAT. 05/17/2022 9:02 AM EST 05/17/2022 9:02 AM EST [facility] Exter nal Provider LAB MOLECULAR DIAGNOSTICS ORDERABLES Final Result [facility] [address] [place] [address] [phone] documented in this encounter Visit Diagnoses Diagnosis Degeneration of lumbosacral intervertebral disc- Primary Degeneration of lumbar or lumbosacral intervertebral disc Chronic bilateral low back pain, unspecified whether sciatica present documented in this encounter Care Teams Butadiene Converter Helper Relationship Specialty Start Date End Date Socorro Lyon MD [address] [place] [id number] PCP - General Family Medicine 04/30/18 documented as of this encounter
--- OUTSIDE RECORDS SUMMARY | 2024-07-15 09:23 | XMS_ITS | Clinical Summary ---
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 COVID-19 At Home Antigen Test (QuickVue At-Home Covid-19 Test) kit as directed 2 Active methadone (Dolophine) 10 MG/ML solution 35 mg daily at methadone clinic Active Multiple Vitamin (Multivitamin Adult) tabletIndicatio ns:Vitamin deficiency Take 1 tablet by mouth in the morning. 90 tablet 3 3 Active atorvastatin (Lipitor) 10 MG tabletIndicatio ns:Cardiac risk counseling Take 1 tablet (10 mg) by mouth in the morning. 90 tablet 3 3 Active Active Problems Problem Noted Date Diagnosed Date Elevated blood pressure read ing without diagnosis of hypertension 04/03/2023 Assessment & Plan (04/03/2023 3:45 PM EST): -Goal BP < 150/90 per JNC-8 and < 130 / 80 per ACC/AHA guideline (Treatment threshold >= 140/90 ) -Borderline BP -Continue working on lifestyle modifications -Recommended self-monitoring BP. -Follow up in 3-6 mo, sooner if any problem arises Lumbar disc disease with radiculopathy 3 Assessment & Plan (07/19/2022 10:14 AM EDT): - currently followed by [facility]. Seen till 2015, then changed to [facility] pain management due to insurance. Most recently seen on 02/13/22 -treated by [facility] pain management, Dr. Elias, last seen in September 2019 --s/p epidural injection for DDD L5-S1, disk hernia with radiculopathy (PSS, [facility]) --s/p MBB on 04/01/19, and 09/23/19 ([facility]). -resumed care with PSS provider, last seen on 10/21/20, --core strengthening PT was recommended --prescribed topiramate, and pt has been taking it and states it has been effective --Last visit 04/06/21 Urgent referral to [facility] pain management was sent, but unable to get appt before his appt on 03/21/22. Pt was explained about our attempt. Pt verbalized understanding and stated that he will stop calling our clinic about this issue. -previously prescribed medications: Meloxicam, Doxepin. he self-discontinued. Imaging Hx: MRI in June 2014: Multifactorial degenerative changes at L5-S1 lead to potential mass effect on the right L5 and S1 nerve roots. MRI on 10/30/19 showed moderate multilevel spondyloarthropathy of L spine, L3-L4 disc protrusion, mild- moderate spinal canal stenosis in L4-L5 Other specialists: -Seen by Dr. Khan, neurosurgeon, and reassured that surgery is not indicated. Has an upcoming appointment on 08/11/22 for reevaluation. -seen by [facility] Rheumatology, last seen in May 2019. Vitamin D deficiency 06/26/2022 Overview (06/26/2022): s/p vitamin D high-dose replacement prescribed vitamin D, questionable adherence Venous insufficiency of both lower extremities 0 06/26/2022 Assessment & Plan (06/26/2022 9:35 AM EST): 02/01/17 venous study showed competent R saphenous system, significant reflux in the L small saphenous vein, and mild reflux in the L great saphenous vein. The bilateral small saphenous veins are patent but contain areas of wall thickening/nonocclusive thrombus, likely chronic in nature. Since he does not use IV drug and does not smoke regularly and small saphenous vein is peripheral vein, he is not considered as high-risk pt for DVT/PE and we did not start anticoagulation. Referred to vascular specialist, but missed appt. Continue DASH diet Thrombophlebitis of left saphenous vein 06/26/19 Assessment & Plan (06/26/2022 9:38 AM EST): -He was referred to vascular specialist, but missed appt in 2017. -Since it is deemed as chronic and peripheral, and he is not IVDU (use intranasally), he did not start anticoagulation. --Will readdress in the future Left groin mass 06/26/2022 Assessment & Plan (07/19/2022 10:15 AM EDT): -Negative STI screening. Lab showed normal ESR and CRP. -CT has been ordered -Referred to general surgeon; appt on 06/27/22 at 2 pm but patient had to cancel due to Weather Conditions. Advised patient to reschedule. Assessment & Plan (06/26/2022 1:00 PM EST): -Negative STI screening. Lab showed normal ESR and CRP. -CT has been ordered -Referred to general surgeon; appt on 06/27/22 at 2 pm. Chronic anemia 06/26/2022 Assessment & Plan (06/26/2022 9:39 AM EST): Advised patient to have colonoscopy completed but he keeps declining -Will monitor at this time -check lab Cardiac risk counseling 06/26/2022 Assessment & Plan (06/26/2022 12:59 PM EST): -Risk factors: smoking -Lipid profile 06/15/22 -[id number] risk 9.7%. Moderate intensity statin therapy is recommended. -He agreed to start atorvastatin 10 mg at bedtime. -Recheck lab in 3 mo. Weight loss 06/16/2022 Assessment & Plan (07/19/2022 9:40 AM EDT): -check lab -pt requests MVI; will prescribe Assessment & Plan (06/26/2022 9:20 AM EST): -check lab -pt requests MVI; will prescribe Assessment & Plan (06/16/2022 6:57 AM EST): -check lab -pt requests MVI; will prescribe Degeneration of lumbosacral intervertebral disc 12/28/2016 Assessment & Plan (04/03/2023 3:46 PM EST): - [facility], Dr. George. -Pt was seeing [facility] till 2015, then changed to [facility] pain management due to insurance. -treated by [facility] pain management, Dr. Elias, last seen in September 2019 --s/p epidural injection for DDD L5-S1, disk hernia with radiculopathy (PSS, [facility]) --s/p MBB on 04/01/19, and 09/23/19 ([facility]). -resumed care with PSS provider in 2020 --core strengthening PT was recommended --previously prescribed topiramate, meloxicam, doxepin, gabapentin, and pregabalin, which were ineffective --referred to Dr. George for spical cord stimulator -Spical Cord Stimulator placement on 05/18/22, removal on 06/01/22 due to ineffectiveness Imaging Hx: MRI in June 2014: Multifactorial degenerative changes at L5-S1 lead to potential mass effect on the right L5 and S1 nerve roots. MRI on 10/30/19 showed moderate multilevel spondyloarthropathy of L spine, L3-L4 disc protrusion, mild- moderate spinal canal stenosis in L4-L5 Other specialists: -Seen by Dr. Khan, neurosurgeon, and reassured that surgery is not indicated. - Upcoming appt with Neurosurgeon on 08/11/22. -seen by [facility] Rheumatology, last seen in May 2019. Referred to a specialist who is willing to provide injection treatment; referred to [facility] pain management Assessment & Plan (09/29/2022 6:40 AM EDT): - currently followed [facility] neurosurgeon, Dr. George. -Pt was seeing [facility] till 2015, then changed to [facility] pain management due to insurance. -treated by [facility] pain management, Dr. Elias, last seen in September 2019 --s/p epidural injection for DDD L5-S1, disk hernia with radiculopathy ([facility], [facility]) --s/p MBB on 04/01/19, and 09/23/19 ([facility]). -resumed care with PSS provider in 2020 --core strengthening PT was recommended --previously prescribed topiramate, meloxicam, doxepin, gabapentin, and pregabalin, which were ineffective --referred to Dr. George for spical cord stimulator -Spical Cord Stimulator placement on 05/18/22, removal on 06/01/22 due to ineffectiveness Imaging Hx: MRI in June 2014: Multifactorial degenerative changes at L5-S1 lead to potential mass effect on the right L5 and S1 nerve roots. MRI on 10/30/19 showed moderate multilevel spondyloarthropathy of L spine, L3-L4 disc protrusion, mild- moderate spinal canal stenosis in L4-L5 Other specialists: -Seen by Dr. Khan, neurosurgeon, and reassured that surgery is not indicated. - Upcoming appt with Neurosurgeon on 08/11/22. -seen by [facility] Rheumatology, last seen in May 2019. Referred to a specialist who is willing to provide injection treatment; referred to [facility] pain management Assessment & Plan (07/19/2022 10:20 AM EDT): - currently followed by [facility] and neurosurgeon, Dr. George. -Pt was seeing PS&S till 2016, then changed to [facility] pain management due to insurance. -treated by [facility] pain management, Dr. Elias, last seen in September 2019 --s/p epidural injection for DDD L5-S1, disk hernia with radiculopathy ([facility], [facility]) --s/p MBB on 04/01/19, and 09/23/19 ([facility]). -resumed care with PSS provider in 2020 --core strengthening PT was recommended --previously prescribed topiramate, meloxicam, doxepin, gabapentin, and pregabalin, which were ineffective --referred to Dr. George for spical cord stimulator -Spical Cord Stimulator placement on 05/18/22, removal on 06/01/22 due to ineffectiveness Imaging Hx: MRI in June 2014: Multifactorial degenerative changes at L5-S1 lead to potential mass effect on the right L5 and S1 nerve roots. MRI on 10/30/19 showed moderate multilevel spondyloarthropathy of L spine, L3-L4 disc protrusion, mild- moderate spinal canal stenosis in L4-L5 Other specialists: -Seen by Dr. Khan, neurosurgeon, and reassured that surgery is not indicated. - Upcoming appt with Neurosurgeon on 08/11/22. -seen by [facility] Rheumatology, last seen in May 2019. Assessment & Plan (06/26/2022 11:53 AM EST): - currently followed by [facility] and neurosurgeon, Dr. George. -Pt was seeing PS&S till 2015, then changed to [facility] pain management due to insurance. -treated by [facility] pain management, Dr. Elias, last seen in September 2019 --s/p epidural injection for DDD L5-S1, disk hernia with radiculopathy (PSS, [facility]) --s/p MBB on 04/01/19, and 09/23/19 ([facility]). -resumed care with PSS provider in 2020 --core strengthening PT was recommended --previously prescribed topiramate, meloxicam, doxepin, gabapentin, and pregabalin, which were ineffective --referred to Dr. George for spical cord stimulator -Spical Cord Stimulator placement on 05/18/22, removal on 06/01/22 due to ineffectiveness Imaging Hx: MRI in June 2014: Multifactorial degenerative changes at L5-S1 lead to potential mass effect on the right L5 and S1 nerve roots. MRI on 10/30/19 showed moderate multilevel spondyloarthropathy of L spine, L3-L4 disc protrusion, mild- moderate spinal canal stenosis in L4-L5 Other specialists: -Seen by Dr. Khan, neurosurgeon, and reassured that surgery is not indicated. -seen by [facility] Rheumatology, last seen in May 2019. Assessment & Plan (06/16/2022 6:54 AM EST): - currently followed by [facility] and neurosurgeon, Dr. George. -Pt was seeing PS&S till 2016, then changed to [facility] pain management due to insurance. -treated by [facility] pain management, Dr. Elias, last seen in September 2019 --s/p epidural injection for DDD L5-S1, disk hernia with radiculopathy (PSS, [facility]) --s/p MBB on 04/01/19, and 09/23/19 ([facility]). -resumed care with PSS provider in 2020 --core strengthening PT was recommended --previously prescribed topiramate, meloxicam, doxepin, gabapentin, and pregabalin, which were ineffective --referred to Dr. George for spical cord stimulator -Spical Cord Stimulator placement on 05/18/22, removal on 06/01/22 due to ineffectiveness Imaging Hx: MRI in June 2014: Multifactorial degenerative changes at L5-S1 lead to potential mass effect on the right L5 and S1 nerve roots. MRI on 10/30/19 showed moderate multilevel spondyloarthropathy of L spine, L3-L4 disc protrusion, mild- moderate spinal canal stenosis in L4-L5 Other specialists: -Seen by Dr. Khan, neurosurgeon, and reassured that surgery is not indicated. -seen by [facility] Rheumatology, last seen in May 2019. Impaired fasting glucose 08/31/2014 Assessment & Plan (06/26/2022 9:23 AM EST): Most recent lab: 10/2019 A1C 5.4% - Continue lifestyle modification. - Continue MVI and supplements - Annual screening. First degree atrioventricular block 12/09/2012 Assessment & Plan (07/19/2022 10:19 AM EDT): -on methadone, currently tapering down. -consider repeating EKG after tapering it off. -Upcoming appt with Neurosurgeon on 08/11/22. Will contact the previous [employer] to continue injections; if unable to resume injections from the Previous [employer], will refer patient to another specialist to resume treatment. Assessment & Plan (06/26/2022 11:53 AM EST): -on methadone, currently tapering down. -consider repeating EKG after tapering it off. Chronic low back pain 04/18/2012 Assessment & Plan (09/19/2022 2:32 PM EDT): Referred to Pain Management [facility], pt will call the office to request an early appt. -Pt will also call [facility] regarding to alternative treatment -encouraged to try acupuncture Assessment & Plan (07/19/2022 9:56 AM EDT): Currently, Following with: [facility], Dr. George. -Pt was seeing PS&S till 2015, then changed to [facility] pain management due to insurance. -treated by [facility] pain management, Dr. Elias, last seen in September 2019 --s/p epidural injection for DDD L5-S1, disk hernia with radiculopathy ([facility], [facility]) --s/p MBB on 04/01/19, and 09/23/19 ([facility]). -resumed care with PSS provider in 2020 --core strengthening PT was recommended --previously prescribed topiramate, meloxicam, doxepin, gabapentin, and pregabalin, which were ineffective --referred to Dr. George for spinal cord stimulator -Spinal Cord Stimulator placement on 05/18/22, removal on 06/01/22 due to ineffectiveness Imaging Hx: MRI in June 2014: Multifactorial degenerative changes at L5-S1 lead to potential mass effect on the right L5 and S1 nerve roots. MRI on 10/30/19 showed moderate multilevel spondyloarthropathy of L spine, L3-L4 disc protrusion, mild- moderate spinal canal stenosis in L4-L5 Other specialists: -Seen by Dr. Khan, neurosurgeon, and reassured that surgery is not indicated. -seen by [facility] Rheumatology, last seen in May 2019. -seen by [facility] pain management, Dr. Elias, last seen September 2019 Assessment & Plan (06/26/2022 9:19 AM EST): Currently, Following with: [facility] Neurosurgeon[facility]. George. -Pt was seeing PS&S till 2015, then changed to [facility] pain management due to insurance. -treated by [facility] pain management, Dr. Elias, last seen in September 2019 --s/p epidural injection for DDD L5-S1, disk hernia with radiculopathy ([facility], [facility]) --s/p MBB on 04/01/19, and 09/23/19 ([facility]). -resumed care with PSS provider in 2020 --core strengthening PT was recommended --previously prescribed topiramate, meloxicam, doxepin, gabapentin, and pregabalin, which were ineffective --referred to Dr. George for spinal cord stimulator -Spinal Cord Stimulator placement on 05/18/22, removal on 06/01/22 due to ineffectiveness Imaging Hx: MRI in June 2014: Multifactorial degenerative changes at L5-S1 lead to potential mass effect on the right L5 and S1 nerve roots. MRI on 10/30/19 showed moderate multilevel spondyloarthropathy of L spine, L3-L4 disc protrusion, mild- moderate spinal canal stenosis in L4-L5 Other specialists: -Seen by Dr. Khan, neurosurgeon, and reassured that surgery is not indicated. -seen by [facility] Rheumatology, last seen in May 2019. -seen by [facility] pain management, Dr. Elias, last seen September 2019 Assessment & Plan (06/16/2022 6:54 AM EST): - currently followed by [facility] and neurosurgeon, Dr. George. -Pt was seeing PS&S till 2016, then changed to [facility] pain management due to insurance. -treated by [facility] pain management, Dr. Elias, last seen in September 2019 --s/p epidural injection for DDD L5-S1, disk hernia with radiculopathy ([facility]) --s/p MBB on 04/01/19, and 09/23/19 ([facility]). -resumed care with [facility] provider in 2020 --core strengthening PT was recommended --previously prescribed topiramate, meloxicam, doxepin, gabapentin, and pregabalin, which were ineffective --referred to Dr. George for spical cord stimulator -Spical Cord Stimulator placement on 05/18/22, removal on 06/01/22 due to ineffectiveness Imaging Hx: MRI in June 2014: Multifactorial degenerative changes at L5-S1 lead to potential mass effect on the right L5 and S1 nerve roots. MRI on 10/30/19 showed moderate multilevel spondyloarthropathy of L spine, L3-L4 disc protrusion, mild- moderate spinal canal stenosis in L4-L5 Other specialists: -Seen by Dr. Khan, neurosurgeon, and reassured that surgery is not indicated. -seen by [facility] Rheumatology, last seen in May 2019. Depressive disorder 04/18/2012 Assessment & Plan (07/19/2022 10:20 AM EDT): -Currently in remission Assessment & Plan (06/26/2022 12:45 PM EST): -Currently in remission Opioid dependence on agonist therapy 04/18/2012 Assessment & Plan (06/16/2022 6:55 AM EST): -Continue methadone clinic, currently 5 mg daily Osteoarthritis 04/18/2012 Shoulder pain 04/18/2012 Encounters Date Type Department Care Team Description 07/11/2024 [address] Health Risk Score [facility] () Department [address] [id number] Provider, Population Health Generic from Last 3 Months Immunizations Name Administration Dates Next Due HepB-CpG 06/26/2022 TD (adult), 2 Lf tetanus tox oid, preservative free, adsorbed 12/18/2017,11/28/2009 Tdap 05/07/2019 Social History Tobacco Use Types Packs/Day Years Used Date Smoking Tobacco: Every Day Cigarettes Passive Smoke Exposure: Past Smokeless Tobacco: Never Tobacco Cessation:Ready to Q uit: Not Asked; Counseling Given: Not Answered Alcohol Use Standard Drinks/Week Comments Never 0 (1 standard drink = 0.6 oz pur e alcohol) Depression Answer Date Recorded Patient Health Questionnaire-9 Score 0 06/26/2022 Housing Stability Answer Date Recorded What is your housing situation today? I have fady diop 02/19/[address] you [...] Orientation Straight 02/27/2022 10 :16 AM EDT Last Filed Vital Signs Vital Sign Reading Time Taken Comments Blood Pressure 128/89 11/20/2023 9:32 AM EDT Pulse 69 11/20/2023 9:32 AM EDT Temperature 36.8 ??C (98.3 ??F) 11/20/2023 9:32 AM ED T Respiratory Rate 18 11/20/2023 9:32 AM EDT Oxygen Saturation 96% 11/20/2023 9:32 AM EDT Inhaled Oxygen Concentration - - Weight 78 kg (172 lb) 11/20/2023 9:32 AM EDT Height 179.8 cm (5' 10.8 ) 09/19/2022 1:46 PM ED T Body Mass Index 24.12 09/19/2022 1:46 PM EDT Plan of Treatment Health Maintenance Due Date Last Done Comments CT Colonography 1959 Colonoscopy 1959 Colorectal Cancer Screening 1959 FIT DNA/Cologuard 1959 FIT 1959 FOBT 1959 Sigmoidoscopy 1959 Alcohol/Substance Use Screening 1971 Pneumococcal Vaccine: 50+ Years (1 of 2 - PCV) 12/05/1978 Zoster Vaccines (1 of 2) 12/05/2009 Hepatitis B Vaccines (2 of 2 - CpG 2-dose series) 07/24/2022 06/26/2022 Depression Screening 06/26/2023 06/26/2022, 06/26/19 SDOH Screening 06/26/2023 06/26/2022 COVID-19 Vaccine ( season) 2023 Influenza Vaccine (#1) 2023 Tobacco Screening 11/19/2024 11/20/2023 Lipid Panel 06/15/2027 06/15/2022, 11/04/2019 DTaP/Tdap/Td Vaccines (3 - Td or Tdap) 10/10/2033 10/11/2023, 05/07/2019, 12/18/2017, Additional history exists RSV Patients and Patients Aged 60 years or older (1 - 1-dose 75+ series) 12/05/2034 HIV Screening Completed 06/15/2022, 11/04/2019 Hepatitis C Screening Completed 06/15/2022, 020 HIB Vaccines Aged Out No longer eligi ble based on patient's age to complete this topic HPV Vaccines Aged Out No longer eligi ble based on patient's age to complete this topic Hepatitis A Vaccines Aged Out No long er eligible based on patient's age to complete this topic IPV Vaccines Aged Out No longer eligi ble based on patient's age to complete this topic Meningococcal Vaccine Aged Out No alaina ramya eligible based on patient's age to complete this topic RSV under 20 months Aged Out No longe r eligible based on patient's age to complete this topic Rotavirus Vaccines Aged Out No longer eligible based on patient's age to complete this topic Procedures Procedure Name Priority Date/Time Associated Diagnosis Comments HEPATITIS C AB W/REFL TO HCV RNA, QN, PCR Routine 06/15/2022 10:43 AM EST Left groin mass HIV 1/2 ANTIGEN/ANTIBODY, FOURTH GENERATION W/RFL Routine 06/15/2022 10:43 AM EST Left groin mass LIPID PANEL WITH REFLEX TO DIRECT LDL Routine 06/15/2022 10:43 AM EST Weight loss from Last 3 Months or Most Recently Relevant to Health Maintenance Results * Lipid Panel with Reflex to Direct LDL (06/15/2022 10:43 AM EST) [facility] Cholesterol, Total 155 <200 mg/dL [facility] HDL Cholesterol 68 > OR = 40 mg/dL [facility] Triglycerides 57 <150 mg/dL [facility] LDL Cholesterol 74 mg/dL (calc) [facility] Comment: Reference range: <100 Desirable range <100 mg/dL for primary prevention; ?? <70 mg/dL for patients with CHD or diabetic patients with > or = 2 CHD risk factors. LDL-C is now calculated using the Thiago calculation, which is a validated novel method providing better accuracy than the Friedewald equation in the estimation of LDL-C. Ethan SS et al. DARIAN. 2013;310(69): 9080-9351 (http://education.[employer]/faq/KPF903) Chol/HDLC Ratio 2.3 <5.0 (calc) [facility] Non-HDL Cholesterol 87 <130 mg/dL (calc) [facility] Comment: For patients with diabetes plus 1 major ASCVD risk factor, treating to a non-HDL-C goal of <100 mg/dL (LDL-C of <70 mg/dL) is considered a therapeutic option. 06/15/2022 10:4 3 AM EST 06/15/2022 10:43 AM EST Narrative [facility] - 06/17/2022 2:30 AM EST FASTING:YES FASTING: YES us Socorro Lyon MD LAB BLOOD ORDERABLES Final Resul t [facility] [address], [facility], [place] [address] [facility] [address], ([address]) [place] [address] * Hepatitis C Antibody with Reflex to HCV, RNA, Quantitative, Real-Time PCR (06/15/2022 10:43 AM EST) Hepatitis C Antibody NON-REACT JACE NON-REACT JACE [facility] Index <0.02 <1.00 [facility] Comment: HCV antibody was non-reactive. There is no laboratory evidence of HCV infection. In most cases, no further action is required. However, if recent HCV exposure is suspected, a test for HCV RNA (test code 05107) is suggested. For additional information please refer to http://[employer]/faq/MVM52k6 (This link is being provided for informational/ educational purposes only.) Blood Venous blood specimen / Unknown 06/15/2022 10:43 AM EST 06/15/2022 10:43 AM EST Narrative [facility] - 06/17/2022 2:30 AM EST FASTING:YES FASTING: YES us Socorro Lyon MD LAB BLOOD ORDERABLES Final Resul t [facility] [address] [place] [address] [facility] [address], ([address]) [place] [address] * HIV-1/2 Antigen and Antibodies, Fourth Generation, with Reflexes (06/15/2022 10:43 AM EST) HIV Antigen/Antibody, 4th Generation NON-REAC TIVE NON-REAC TIVE [facility] [place] [facility] Comment: HIV-1 antigen and HIV-1/HIV-2 antibodies were not detected. There is no laboratory evidence of HIV infection. PLEASE NOTE: This information has been disclosed to you from records whose confidentiality may be protected by state law. ??If your state requires such protection, then the state law prohibits you from making any further disclosure of the information without the specific written consent of the person to whom it pertains, or as otherwise permitted by law. A general authorization for the release of medical or other information is NOT sufficient for this purpose. ?? For additional information please refer to http://ThinkLink.Gamma Basics/faq/CGS518 (This link is being provided for informational/ educational purposes only.) The performance of this assay has not been clinically validated in patients less than 2 years old. 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
[2024-07-15 09:56] VITALS: BP 125/51; PULSE 53; RESP 16; O2SAT 100
== END 2024-07-15 09:56 | disposition home or self-care (01) ==
LOC: HO.PMCPRC 08:53
PROVIDERS: PCP Family Medicine; Visit Provider Anesthesiology
DX: M54.16 Radiculopathy, lumbar region (principal); G89.4 Chronic pain syndrome; M47.816 Spondylosis without myelopathy or radiculopathy, lumbar region; M51.369 Other intervertebral disc degeneration, lumbar region without mention of lumbar back pain or lower extremity pain
CPT/HCPCS: 62323

== ENCOUNTER 2024-08-13 08:24 | Outpatient (AMB) | payer MEDICAID, SELFPAY ==
--- NOTE | 2024-08-13 08:32 | MHC.OFFVIS ---
Vital Signs 08/13/24 08:33 Height 5 ft 9 in Weight 174 lb BMI 25.7 BP 125/60 Blood Pressure Location Lt brachial Position Sitting Respiration 16 Pulse 64 Pulse Source Pulse Oximeter Pulse Oximetry (%) 96 Oxygen Delivery Method Room Air Intake Visit Reasons: L4, L5 INTERLAMINAR MAXIMILIAN Business Operations Manager Required: No Allergies tramadol Allergy (Unknown, Verified 08/13/24 08:35) itching Medication List - Last Reconciled 08/13/24 by Orin Raman LPN No Known Home Meds HPI Comments Details: Todd is back in my office after yet another interlaminar L4-5 epidural steroid injection. He reports very good pain relief. He reports that before the procedure his pain was 9 to 10/10. He reported difficulty sleeping difficulty walking difficulty to perform activities of daily living before the injection. Today he reports his pain 3/10. He reports this is the strongest of the pain he is experiences in the past months since the last injection. He reports night's sleep he reports better activities of daily living. He was explained that when his pain will come back he would have to give us a call to schedule yet another injection as above. Prior injection as above was on 07/15/2024 and before that on 08/21/2023. I also recommended him to try alpha lipoic acid there are some documents and informations available that this vitamin helps radicular pain. Prior: He reported that his pain started many years ago, he was under care of this office in the past and received multiple injections in this office. He had medial branch blocks performed and transforaminal epidural steroid injections performed with moderate pain relief he was subject of the MRI available to me 4 years ago on which the were L2-L3 minimal disc bulge moderate facet arthrosis L4 L3 diffuse disc bulge concentric to the right moderate facet arthrosis, ligamentous hypertrophy central canal stenosis mild in nature and neural foraminal right greater than left stenosis. L4-5 arthrosis ligamentous hypertrophy mild canal stenosis mild narrowing of neural foramina L5-S1 disc osteophyte complex small central and right foraminal disc protrusions moderate facet arthrosis and ligamentum flavum hypertrophy central canal narrowing and moderate narrowing of neural foramina. However in the past few years he was under care of [facility] he received injections Those injections were: Left L4-5 interlaminar injection 08/12/2020 Reports good results bilateral L4-5 and L5-S1 intra-articular facet joint injections 11/10/2020 Reports moderate results less than 40% pain improvement Repeat bilateral L4-5 L5-S1 intra-articular facet joint injections 04/06/2021 Reports moderate results. Bilateral L4-5 L5-S1 intra-articular facet joint injections 07/20/2021 Reports moderate results. 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 COUNTS INCLUDE 234 BEDS AT THE [facility] Medical History Polysubstance abuse Social History Alcohol intake: unknown Substance Use Type: Heroin Review of Systems Const All systems reviewed & are unremarkable except as noted in HPI and below ENT Reports Normal hearing present Neuro Reports Normal hearing present, Denies Abnormal speech present, Denies confusion and Denies Sensory deficit (Neuro) Psych Denies confusion Physical Exam Vital Signs: Last Vital Signs Pulse 64 08/13/24 08:33 Resp 16 08/13/24 08:33 BP 125/60 08/13/24 08:33 Pulse Ox 96 08/13/24 08:33 Oxygen Delivery Method Room Air 08/13/24 08:33 BMI result Body Mass Index 25.7 Const General: no acute distress; No confusion Orientation/consciousness: patient oriented x3 and No confusion Eyes General: appearance normal, both eyes and all related structures Pupils: Equal, round and reactive pupils present EOM: EOMs intact bilaterally Neck Neck: Yes full ROM Chest Chest palpation & inspection: normal inspection of the chest Resp Effort & Inspection: normal respiratory effort, able to speak in complete sentences, normal respiratory pattern, no audible wheezes and no cough Cardio Jugular venous distension: no JVD GI Inspection: Yes normal to inspection Back/Spine/Pelvis Other: On physical exam the patient is thin on inspection he assumes leaning forward posture. He reports mild discomfort on straight leg raising however the dorsiflexion of the feet in bilateral fashion does not increase pain in the back. Rosalio test seem to be positive however the palpation of the sacroiliac joint projection to the skin on the patient's back results in no tenderness on palpation. Pelvic compression and pelvic distraction test are also equivocal. Palpation of the lumbar spine and lower thoracic spine is tender on paraspinal spinal regions. Muscular strength of bilateral lower extremity seem to be symmetrical. There is no sensation deficits. Valsalva is positive for pain increase. He denies incontinence with urine endorse stool he denies urinary retention. Neuro General: patient oriented x3, gait normal and No confusion Cranial nerves: Yes CN's II-XII intact bilaterally, Yes Equal, round and reactive pupils present, Yes Normal hearing present and Yes Ability to bilaterally elevate shoulders present Speech: No Abnormal speech present Gait exam (Neuro): Normal gait present Motor exam (neuro): 5/5 motor strength present throughout Sensory Exam: No Sensory deficit (Neuro) Extrem General: No pedal edema Psych Speech and movement: Normal speech and movement present Affect: normal affect Attitude: cooperative Thought process: Normal thought process present Thought content: Normal thought content present Insight: Good insight present (Psych) Judgement: Good judgement present (Psych) Assessment & Plan Assessment & Plan (1) Polysubstance abuse: Code(s): F19.10 - Other psychoactive substance abuse, uncomplicated Category: Medical (2) Disc degeneration, lumbar: Code(s): M51.36 - Other intervertebral disc degeneration, lumbar region Category: Medical (3) Spondylosis of lumbar region without myelopathy or radiculopathy: Code(s): M47.816 - Spondylosis without myelopathy or radiculopathy, lumbar region Category: Medical (4) Chronic pain syndrome: Code(s): G89.4 - Chronic pain syndrome Category: Medical (5) Radiculopathy, lumbar region: Code(s): M54.16 - Radiculopathy, lumbar region Category: Medical Plan Good results of interlaminar epidural steroid injection L4-5. One month since the previous injection. The patient was explained that he would need to give us a call and schedule yet another epidural steroid injection L4-5 when his pain will come back. Coding Level of Care Code Est Pt Level 3 (89176) Diagnoses Polysubstance abuse F19.10 Disc degeneration, lumbar M51.36 Spondylosis of lumbar region without myelopathy or radiculopathy M47.816 Chronic pain syndrome G89.4 Radiculopathy, lumbar region M54.16
[2024-08-13 08:33] VITALS: BP 125/60; PULSE 64; RESP 16; O2SAT 96; BMI 25.7
--- OUTSIDE RECORDS SUMMARY | 2024-08-13 08:36 | XMS_ITS | Encounter Summary ---
Author Organization [employer] Address [address] [place] [address] [address] [place] [address] Care Team Providers Care Automobile Parker Name Role Phone Socorro Lyon MD Primary Care Provider [phone] Encounter Details Date Type Department Care Team (Late st Contact Info) Description 09/18/2022 Orders Only [facility] MEDICINE [address] [place] [address] Socorro Lyon MD [address] [place] [address] Lumbar disc disease with radiculopathy (Primary Dx); [...] documented as of this encounter Care Teams Automobile Parker Relationship Specialty Start Date End Date Socorro Lyon MD [address] [place] [address] PCP - General Family Medicine 04/30/18 documented as of this encounter
--- OUTSIDE RECORDS SUMMARY | 2024-08-13 08:36 | XMS_ITS | Clinical Summary ---
Author Organization [facility] [employer] Address [address] [facility] [address] [place] [address] Care Team Providers Care Clamshell Engineer Name Role Phone Socorro Lyon MD Primary Care Provider Allergies Active Allergy Reactions Criticality Noted Date [...] 10:14 AM EDT): - currently followed by [facility]. Seen till 2015, then changed to [facility] due to insurance. Most recently seen on 02/13/22 -treated by [facility] pain management, Dr. Elias, last seen in September 2019 --s/p epidural injection for DDD L5-S1, disk hernia with radiculopathy ([facility], [facility]) --s/p MBB on 04/01/19, and 09/23/19 ([facility]). -resumed care with [facility] provider, last seen on 10/21/20, --core strengthening PT was recommended --prescribed topiramate, and pt has been taking it and states it has been effective --Last visit 04/06/21 Urgent referral to [facility] pain management was sent, but unable to [...] appointment on 08/11/22 for reevaluation. -seen by [facility], last seen in May 2019. Vitamin [...] EST): -Risk factors: smoking -Lipid profile 06/15/22 -[id number] risk 9.7%. Moderate intensity statin therapy is [...] seeing [facility] till 2015, then changed to [facility] pain management due to insurance. -treated by [facility] pain management, Dr. Elias, last seen in September 2019 --s/p epidural injection for DDD L5-S1, disk hernia with radiculopathy ([facility], [facility]) --s/p MBB on 04/01/19, and 09/23/19 ([facility]). -resumed care with [facility] provider in 2020 [...] appt with Neurosurgeon on 08/11/22. -seen by [facility], last seen in May 2019. Referred to a specialist who is willing to provide injection treatment; referred to [facility] pain [facility] Assessment & Plan (09/29/2022 6:40 AM EDT): - [facility], Dr. George. -Pt was seeing [facility] till 2015, then changed to [facility] pain management due to insurance. -treated by [facility] pain management, Dr. Elias, last seen in September 2019 --s/p epidural injection for DDD L5-S1, disk hernia with radiculopathy ([facility], [facility]) --s/p MBB on 04/01/19, and 09/23/19 ([facility]). -resumed care with [facility] provider in 2020 [...] appt with Neurosurgeon on 08/11/22. -seen by [facility], last seen in May 2019. Referred to a specialist who is willing to provide injection treatment; referred to [facility] pain [facility] Assessment & Plan (07/19/2022 10:20 AM EDT): - currently followed by [facility] and neurosurgeon, Dr. George. -Pt was seeing [facility] till 2016, then changed to [facility] pain management due to insurance. -treated by [facility] pain management, Dr. Elias, last seen in September 2019 --s/p epidural injection for DDD L5-S1, disk hernia with radiculopathy ([facility], [facility]) --s/p MBB on 04/01/19, and 09/23/19 ([facility]). -resumed care with [facility] provider in 2020 [...] appt with Neurosurgeon on 08/11/22. -seen by [facility], last seen in May 2019. Assessment & Plan (06/26/2022 11:53 AM EST): - currently followed by [facility] and neurosurgeon, Dr. George. -Pt was seeing [facility] till 2015, then changed to [facility] pain management due to insurance. -treated by [facility] pain management, Dr. Elias, last seen in September 2019 --s/p epidural injection for DDD L5-S1, disk hernia with radiculopathy ([facility], [facility]) --s/p MBB on 04/01/19, and 09/23/19 ([facility]). -resumed care with [facility] provider in 2020 [...] that surgery is not indicated. -seen by [facility], last seen in May 2019. Assessment & Plan (06/16/2022 6:54 AM EST): - currently followed by [facility] and neurosurgeon, Dr. George. -Pt was seeing [facility] till 2016, then changed to [facility] pain management due to insurance. -treated by [facility] pain management, Dr. Elias, last seen in September 2019 --s/p epidural injection for DDD L5-S1, disk hernia with radiculopathy ([facility], [facility]) --s/p MBB on 04/01/19, and 09/23/19 ([facility]). -resumed care with [facility] provider in 2020 [...] that surgery is not indicated. -seen by [facility], last seen in May 2019. Impaired [...] Neurosurgeon on 08/11/22. Will contact the previous Candlemaking Laborer to continue injections; if unable to resume injections from the Previous Candlemaking Laborer, will refer patient to another specialist to resume treatment. Assessment & Plan (06/26/2022 11:53 AM EST): -on methadone, currently tapering down. -consider repeating EKG after tapering it off. Chronic low back pain 04/18/2012 Assessment & Plan (09/19/2022 2:32 PM EDT): Referred to Pain Management [facility], pt will call the office to request an early appt. -Pt will also call [facility] regarding to alternative treatment -encouraged to try acupuncture Assessment & Plan (07/19/2022 9:56 AM EDT): Currently, Following with: [facility], Dr. George. -Pt was seeing PS&[facility] till 2015, then changed to [facility] pain management due to insurance. -treated by [facility] pain management, Dr. Elias, last seen in September 2019 --s/p epidural injection for DDD L5-S1, disk hernia with radiculopathy ([facility], [facility]) --s/p MBB on 04/01/19, and 09/23/19 ([facility]). -resumed care with [facility] provider in 2020 [...] that surgery is not indicated. -seen by [facility], last seen in May 2019. -seen by [facility] pain management, Dr. Elias, last seen September 2019 Assessment & Plan (06/26/2022 9:19 AM EST): Currently, Following with: [facility] Neurosurgeon[facility]. George. -Pt was seeing [facility] till 2015, then changed to [facility] pain management due to insurance. -treated by [facility] pain management, Dr. Elias, last seen in September 2019 --s/p epidural injection for DDD L5-S1, disk hernia with radiculopathy ([facility], [facility]) --s/p MBB on 04/01/19, and 09/23/19 ([facility]). -resumed care with [facility] provider in 2020 [...] that surgery is not indicated. -seen by [facility], last seen in May 2019. -seen by [facility] pain management, Dr. Elias, last seen September 2019 Assessment & Plan (06/16/2022 6:54 AM EST): - currently followed by [facility] and neurosurgeon, Dr. George. -Pt was seeing PS&[facility] till 2016, then changed to [facility] pain management due to insurance. -treated by [facility] pain management, Dr. Elias, last seen in September 2019 --s/p epidural injection for DDD L5-S1, disk hernia with radiculopathy ([facility]) --s/p MBB on 04/01/19, and 09/23/19 ([facility]). -resumed care with [facility] provider in 2020 --core strengthening PT was [...] that surgery is not indicated. -seen by [facility], last seen in May 2019. Depressive [...] Team Description 07/11/2024 Population Health Risk Score [facility] () Department [address] [id number] Provider, Population Health Generic from Last 3 [...] to Direct LDL (06/15/2022 10:43 AM EST) [facility] Cholesterol, Total 155 <200 mg/dL [facility] [place] [facility] HDL Cholesterol 68 > OR = 40 mg/dL [facility] [place] [facility] Triglycerides 57 <150 mg/dL [facility] [place] [facility] LDL Cholesterol 74 mg/dL (calc) [facility] [place] [facility] Comment: Reference range: <100 Desirable range <100 mg/dL for primary prevention; ?? <70 mg/dL for patients with CHD or diabetic patients with > or = 2 CHD risk factors. LDL-C is now calculated using the Thiago calculation, which is a validated novel method providing better accuracy than the Friedewald equation in the estimation of LDL-C. Ethan SS et al. DARIAN. 2013;310(05): 2462-8627 (http://education.Boomerang.com/faq/BLO143) Chol/HDLC Ratio 2.3 <5.0 (calc) [facility] [place] [facility] Non-HDL Cholesterol 87 <130 mg/dL (calc) [facility] [place] [facility] Comment: For patients with diabetes plus 1 major ASCVD risk factor, treating to a non-HDL-C goal of <100 mg/dL (LDL-C of <70 mg/dL) is considered a therapeutic option. 06/15/2022 10:4 3 AM EST 06/15/2022 10:43 AM EST Narrative [facility] - 06/17/2022 2:30 AM EST FASTING:YES FASTING: YES us Socorro yLon MD LAB BLOOD ORDERABLES Final Resul t [facility] [address] [facility], [facility], [place] [address] [facility] [place] [facility] [address] [facility], ([address]) [place] [address] * Hepatitis C Antibody with Reflex to HCV, RNA, Quantitative, Real-Time PCR (06/15/2022 10:43 AM EST) Hepatitis C Antibody NON-REACT JACE NON-REACT JACE [facility] [place] [facility] Index <0.02 <1.00 [facility] [place] [facility] Comment: HCV antibody was non-reactive. There is no laboratory evidence of HCV infection. In most cases, no further action is required. However, if recent HCV exposure is suspected, a test for HCV RNA (test code 21923) is suggested. For additional information please refer to http://GetLikeminds.SocialTagg/faq/BPP21v8 (This link is being provided for informational/ educational purposes only.) Blood Venous blood specimen / Unknown 06/15/2022 10:43 AM EST 06/15/2022 10:43 AM EST Narrative [facility] - 06/17/2022 2:30 AM EST FASTING:YES FASTING: YES us Socorro Lyon MD LAB BLOOD ORDERABLES Final Resul t [facility] [address] [facility], [address], [place] [address] [facility] [place] [facility] [address] [facility], ([address]) [place] [address] * HIV-1/2 Antigen and Antibodies, Fourth Generation, with Reflexes (06/15/2022 10:43 AM EST) HIV Antigen/Antibody, 4th Generation NON-REAC TIVE NON-REAC TIVE [facility] [place] [facility] Comment: HIV-1 antigen and HIV-1/HIV-2 antibodies [...] ?? For additional information please refer to http://GetLikeminds.SocialTagg/faq/XLB990 (This link is being provided for informational/ educational purposes only.) The performance of this assay has not been clinically validated in patients less than 2 years old. Blood Venous blood specimen / Unknown 06/15/2022 10:43 AM EST 06/15/2022 10:43 AM EST Narrative [facility] - 06/17/2022 2:30 AM EST FASTING:YES FASTING: YES Socorro Lyon MD LAB BLOOD ORDERABLES Final Resul t [facility] [address] [facility], 3[address], [address] [place] [address] [facility] [address] [facility], ([address]) [place] [address] from Last 3 Months or Most Recently Relevant to Health Maintenance Insurance [employer] C3 Care Teams Clamshell Engineer Relationship Specialty Start Date End Date Socorro Lyon MD [address] [place] [address] PCP - General Family Medicine 04/30/18
--- OUTSIDE RECORDS SUMMARY | 2024-08-13 08:36 | XMS_ITS | Encounter Summary ---
Author Organization [employer] Address [address] [place] [address] 7 [place] [address] Care Team Providers Care Hybrid Derivatives Trader Name Role Phone Socorro Lyon MD Primary Care Provider [phone] Encounter Details Date Type Department Care Team (Late st Contact Info) Description 04/21/2022 Orders Only [facility] [address] [place] [address] Socorro Lyon MD [address] [place] [address] Degeneration of lumbosacral intervertebral disc (Primary Dx); [...] this encounter Results * COVID-19 ID NOW (RIZVI) (05/17/2022 9:02 AM EST) IDNOW SERIAL# [id number] [facility] COVID-19 TEST Negative Negative [facility] COVID-19 NOTE See Note [facility] Comment: Results are for the identification of SARS-CoV2 RNA. TheSARS-CoV2 RNA is generally detectable in respiratory samplesduring the acute phase of infection. Positive results areindicative of the presence of SARS-CoV-2 RNA; clinicalcorrelation with patient history and other diagnosticinformation is necessary to determine patient infectionstatus. Positive results do not rule out bacterial infectionor co- infection with other viruses.Testing facilities within the [facility] and [facility] are required to report all positive results [...] use by authorized laboratories.Testing performed on the [employer] ID NOW utilizing NAAT. 05/17/2022 9:02 AM EST 05/17/2022 9:02 AM EST [facility] Exter nal Provider LAB MOLECULAR DIAGNOSTICS ORDERABLES Final Result [facility] [address] [place] [address] [phone] documented in this encounter Visit Diagnoses Diagnosis Degeneration of lumbosacral intervertebral disc- Primary Degeneration of lumbar or lumbosacral intervertebral disc Chronic bilateral low back pain, unspecified whether sciatica present documented in this encounter Care Teams Hybrid Derivatives Trader Relationship Specialty Start Date End Date Socorro Lyon MD [address] [place] [id number] PCP - General Family Medicine 04/30/18 documented as of this encounter
--- OUTSIDE RECORDS SUMMARY | 2024-08-13 08:36 | XMS_ITS | Encounter Summary ---
Author Organization [facility] Address [address] [place] [id number] Care Team Providers Care Digital Solutions Architect Name Role Phone Socorro Lyon MD Primary Care Provider [phone] Reason for Visit * Reason Onset Date Comments Request For Order(s) 08/09/2022 Encounter Details Date Type Department Care Team ([facility] st Contact Info) Description 08/09/2022 Telephone [facility] [address] [place] [address] Socorro Lyon MD [address] [place] [address] Request For Order(s) Social History Tobacco Use [...] Order signed by PCP and faxed to [employer] * Telephone Encounter - Nazia Thomas RN - 08/16/2022 9:50 AM EDT Call to [email or web address]. They originally received a handwritten order that was missing a signature. Printed out electronic order and placed on PCP desk for signature as they are still requesting a handwritten signature with electronic signature. * Telephone Encounter - Vimal Martinez - 08/09/2022 3:39 PM EDT Tc from bob with [employer] Requesting an sign order by PCP. Reference number - [id number] Please contact bob at [phone] documented in this encounter Plan of Treatment Not on file documented as of this encounter Visit Diagnoses Not on filedocumented in this encounter Additional Health Concerns Assessment Noted Time PHQ-9 Depression Total Score: 0 06/26/19 23 9:16 AM EST documented as of this encounter Care Teams Digital Solutions Architect Relationship Specialty Start Date End Date Socorro Lyon MD [address] [place] [id number] PCP - General Family Medicine 04/30/18 documented as of this encounter
== END 2024-08-13 08:52 | disposition home or self-care (01) ==
PROVIDERS: PCP Family Medicine; Visit Provider Anesthesiology
DX: G89.4 Chronic pain syndrome (principal); M51.369 Other intervertebral disc degeneration, lumbar region without mention of lumbar back pain or lower extremity pain; M47.816 Spondylosis without myelopathy or radiculopathy, lumbar region; M54.16 Radiculopathy, lumbar region; F19.10 Other psychoactive substance abuse, uncomplicated
CPT/HCPCS: 99213

== ENCOUNTER → 2024-08-13 08:24 | Outpatient (BNVA) | payer MEDICAID, SELFPAY | PROVIDERS: PCP Family Medicine; Visit Provider Anesthesiology | DX: M51.369 Other intervertebral disc degeneration, lumbar region without mention of lumbar back pain or lower extremity pain (principal); M47.816 Spondylosis without myelopathy or radiculopathy, lumbar region; G89.4 Chronic pain syndrome; M54.16 Radiculopathy, lumbar region; F19.10 Other psychoactive substance abuse, uncomplicated | CPT/HCPCS: 99212 ==

== ENCOUNTER 2024-10-15 08:06 | Outpatient (AMB) | payer MEDICAID, SELFPAY ==
--- NOTE | 2024-10-15 08:11 | A.OFFVIS_ITS ---
Vital Signs 10/15/24 08:12 Weight 174 lb BP 134/64 Blood Pressure Location Lt brachial Position Sitting Respiration 16 Pulse 58 Pulse Source Pulse Oximeter Pulse Oximetry (%) 100 Oxygen Delivery Method Room Air Intake Visit Reasons: Leg pain FU Supervisor Sign Shop Required: No Allergies tramadol Allergy (Unknown, Verified 10/15/24 08:11) itching HPI Comments Details: Todd is back in my office after yet another interlaminar L4-5 epidural steroid injection. This time he reported no pain relief at all. He is here in my office 1 month after the procedure and he reports pain 10/10, he reports that he experiences severe pain in bilateral lower extremities with walking. He reports that leaning forward makes his pain slightly better. He is suffering from spinal stenosis. I offered him and he agreed to go for neurosurgical consult. I will send him for fresh MRI because neurosurgeon requires MRI younger than 6 months. Prior injection as above was on 07/15/2024 and before that on 08/21/2023,. I also recommended him to try alpha lipoic acid there are some documents and informations available that this vitamin helps radicular pain. Prior: He reported that his pain started many years ago, he was under care of this office in the past and received multiple injections in this office. He had medial branch blocks performed and transforaminal epidural steroid injections performed with moderate pain relief he was subject of the MRI available to me 4 years ago on which the were L2-L3 minimal disc bulge moderate facet arthrosis L4 L3 diffuse disc bulge concentric to the right moderate facet arthrosis, ligamentous hypertrophy central canal stenosis mild in nature and neural foraminal right greater than left stenosis. L4-5 arthrosis ligamentous hypertrophy mild canal stenosis mild narrowing of neural foramina L5-S1 disc osteophyte complex small central and right foraminal disc protrusions moderate facet arthrosis and ligamentum flavum hypertrophy central canal narrowing and moderate narrowing of neural foramina. However in the past few years he was under care of [facility] he received injections Those injections were: Left L4-5 interlaminar injection 08/12/2020 Reports good results bilateral L4-5 and L5-S1 intra-articular facet joint injections 11/10/2020 Reports moderate results less than 40% pain improvement Repeat bilateral L4-5 L5-S1 intra-articular facet joint injections 04/06/2021 Reports moderate results. Bilateral L4-5 L5-S1 intra-articular facet joint injections 07/20/2021 Reports moderate results. 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 [facility] Medical History Polysubstance abuse Social History Alcohol intake: unknown Substance Use Type: Heroin Review of Systems Const All systems reviewed & are unremarkable except as noted in HPI and below ENT Reports Normal hearing present Neuro Reports Normal hearing present, Denies Abnormal speech present, Denies confusion and Denies Sensory deficit (Neuro) Psych Denies confusion Physical Exam Vital Signs: Last Vital Signs Pulse 58 10/15/24 08:12 Resp 16 10/15/24 08:12 BP 134/64 10/15/24 08:12 Pulse Ox 100 10/15/24 08:12 Oxygen Delivery Method Room Air 10/15/24 08:12 Const General: no acute distress; No confusion Orientation/consciousness: patient oriented x3 and No confusion Eyes General: appearance normal, both eyes and all related structures Pupils: Equal, round and reactive pupils present EOM: EOMs intact bilaterally Neck Neck: Yes full ROM Chest Chest palpation & inspection: normal inspection of the chest Resp Effort & Inspection: normal respiratory effort, able to speak in complete sentences, normal respiratory pattern, no audible wheezes and no cough Cardio Jugular venous distension: no JVD GI Inspection: Yes normal to inspection Back/Spine/Pelvis Other: On physical exam the patient is thin on inspection he assumes leaning forward posture. He reports mild discomfort on straight leg raising however the dorsiflexion of the feet in bilateral fashion does not increase pain in the back. Rosalio test seem to be positive however the palpation of the sacroiliac joint projection to the skin on the patient's back results in no tenderness on palpation. Pelvic compression and pelvic distraction test are also equivocal. Palpation of the lumbar spine and lower thoracic spine is tender on paraspinal spinal regions. Muscular strength of bilateral lower extremity seem to be symmetrical. There is no sensation deficits. Valsalva is positive for pain increase. He denies incontinence with urine endorse stool he denies urinary retention. Neuro General: patient oriented x3, gait normal and No confusion Cranial nerves: Yes CN's II-XII intact bilaterally, Yes Equal, round and reactive pupils present, Yes Normal hearing present and Yes Ability to bilaterally elevate shoulders present Speech: No Abnormal speech present Gait exam (Neuro): Normal gait present Motor exam (neuro): 5/5 motor strength present throughout Sensory Exam: No Sensory deficit (Neuro) Extrem General: No pedal edema Psych Speech and movement: Normal speech and movement present Affect: normal affect Attitude: cooperative Thought process: Normal thought process present Thought content: Normal thought content present Insight: Good insight present (Psych) Judgement: Good judgement present (Psych) Assessment & Plan Assessment & Plan (1) Polysubstance abuse: Code(s): F19.10 - Other psychoactive substance abuse, uncomplicated Category: Medical (2) Disc degeneration, lumbar: Code(s): M51.36 - Other intervertebral disc degeneration, lumbar region Category: Medical (3) Spondylosis of lumbar region without myelopathy or radiculopathy: Code(s): M47.816 - Spondylosis without myelopathy or radiculopathy, lumbar region Category: Medical (4) Chronic pain syndrome: Code(s): G89.4 - Chronic pain syndrome Category: Medical (5) Radiculopathy, lumbar region: Code(s): M54.16 - Radiculopathy, lumbar region Category: Medical (6) Spinal stenosis: Code(s): M48.00 - Spinal stenosis, site unspecified Category: Medical Plan Not a good results of the interlaminar epidural steroid injection this time. I will send him for MRI of the lumbar spine to assess the degree of progression of his stenosis. I will also refer him to Neurosurgery. Orders: Orders MR lumbar spine wo con Today M48.00 - Spinal stenosis, site unspecified, M51.36 - Other intervertebral disc degeneration, lumbar region Referrals Neurosurgery Referral M48.00 - Spinal stenosis, site unspecified, M51.36 - Other intervertebral disc degeneration, lumbar region Coding Level of Care Code Est Pt Level 3 (01205) Diagnoses Polysubstance abuse F19.10 Disc degeneration, lumbar M51.36 Spondylosis of lumbar region without myelopathy or radiculopathy M47.816 Chronic pain syndrome G89.4 Radiculopathy, lumbar region M54.16 Spinal stenosis M48.00
[2024-10-15 08:12] VITALS: BP 134/64; PULSE 58; RESP 16; O2SAT 100
--- OUTSIDE RECORDS SUMMARY | 2024-10-15 08:17 | XMS_ITS | Encounter Summary ---
Author Organization [employer] Address [address] [place] [address] 7 [place] [address] Care Team Providers Care Riprap Placer Name Role Phone Socorro Lyon MD Primary Care Provider [phone] Encounter Details Date Type Department Care Team (Late st Contact Info) Description 09/18/2022 Orders Only [facility] [address] [place] [address] Socorro Lyon MD [address] [place] [address] Lumbar disc disease with radiculopathy (Primary Dx); [...] documented as of this encounter Care Teams Riprap Placer Relationship Specialty Start Date End Date Socorro Lyon MD [address] [place] [address] PCP - General Family Medicine 04/30/18 documented as of this encounter
== END 2024-10-15 08:23 | disposition home or self-care (01) ==
LOC: HO.PMC 08:07
PROVIDERS: PCP Family Medicine; Visit Provider Anesthesiology
DX: F19.10 Other psychoactive substance abuse, uncomplicated (principal); M51.369 Other intervertebral disc degeneration, lumbar region without mention of lumbar back pain or lower extremity pain; M47.816 Spondylosis without myelopathy or radiculopathy, lumbar region; G89.4 Chronic pain syndrome; M54.16 Radiculopathy, lumbar region; M48.00 Spinal stenosis, site unspecified
CPT/HCPCS: 99213

== ENCOUNTER → 2024-10-15 08:06 | Outpatient (BNVA) | payer MEDICAID, SELFPAY | PROVIDERS: PCP Family Medicine; Visit Provider Anesthesiology | DX: M47.816 Spondylosis without myelopathy or radiculopathy, lumbar region (principal); M48.00 Spinal stenosis, site unspecified; M54.16 Radiculopathy, lumbar region; G89.4 Chronic pain syndrome; M51.360 Other intervertebral disc degeneration, lumbar region with discogenic back pain only; F19.10 Other psychoactive substance abuse, uncomplicated | CPT/HCPCS: 99212 ==

== ENCOUNTER → 2024-12-06 08:43 | Outpatient (BNV) | payer MEDICAID, SELFPAY | PROVIDERS: PCP Family Medicine; Visit Provider Radiology Diagnostic Radiology | DX: M47.815 Spondylosis without myelopathy or radiculopathy, thoracolumbar region (principal); M99.63 Osseous and subluxation stenosis of intervertebral foramina of lumbar region; N28.1 Cyst of kidney, acquired | CPT/HCPCS: 72148 ==

== ENCOUNTER 2024-12-06 08:55 | Outpatient (REF) | payer MEDICAID, SELFPAY ==
--- NOTE | ~2024-12-06 | MR_ITS ---
EXAMINATION: MR LUMBAR SPINE WITHOUT CONTRAST CLINICAL INFORMATION: Low back pain. Bilateral lower extremity pain, weakness and numbness. COMPARISON: October 30, 2019. TECHNIQUE: MRI of the lumbar spine was obtained using routine sequences without contrast. FINDINGS: Last rib-bearing vertebra labeled T12. No bone marrow STIR signal abnormality. Multilevel marginal osteophytes dimension and disc desiccation. Modic type II endplate changes at L5-S1. Bone marrow inhomogeneity. Grade 1 retrolisthesis L5-S1 on a degenerative basis. Focal hyperintense T2 signal in the posterior intervertebral disc L5-S1 likely focal annular fissure. Conus medullaris and at inferior endplate of L1 with normal signal. T12-L1: No herniated disc. No neuroforamina stenosis. L1-2: Left subarticular herniated disc resulting in ventral indentation to the thecal sac. No compression upon neural elements. L2-3: Broad-based disc bulging. Facet joint and ligamentum flavum hypertrophy. Reduced AP diameter of the thecal sac and neuroforamina with CSF effacement and encroachment of the neural elements. L3-4: Broad-based disc bulging. Facet joint and ligamentum flavum hypertrophy. Reduced AP diameter of the thecal sac and neuroforamina. CSF effacement of the thecal sac and encroachment of the neural elements. L4-5: Broad-based disc bulging. Facet joint and ligamentum flavum hypertrophy. Reduced AP diameter of the thecal sac and neuroforamina likely encroaching the neural elements. L5-S1: Broad-based disc bulging. Facet joint and ligamentum flavum hypertrophy. Reduced AP diameter of the thecal sac and the neural foramina likely encroaching the neural elements. No prevertebral compartment hematoma, mass or fluid collection. Multifocal hyperintense T2 cystic lesions both kidneys. Soft tissue fullness in both adrenal glands. MR/MR lumbar spine wo con IMPRESSION: Multilevel thoracolumbar spondylosis resulting in central spinal canal and bilateral neuroforamina stenosis from L2-3 to L5-S1 encroaching the neural elements. Left subarticular herniated disc at L1-2 without compression upon neural elements. Bilateral renal cysts. Soft tissue fullness, adrenal glands, statistically may represent adrenal hyperplasia. Electronically signed by: Con Conley MD 12/08/2024 07:21 AM EDT RP
== END 2024-12-06 08:56 | disposition home or self-care (01) ==
LOC: HO.MRI 08:55
PROVIDERS: PCP Family Medicine; Visit Provider Anesthesiology
DX: M51.362 Other intervertebral disc degeneration, lumbar region with discogenic back pain and lower extremity pain (principal); M48.00 Spinal stenosis, site unspecified; M54.50 Low back pain, unspecified; M79.604 Pain in right leg; M79.605 Pain in left leg; R20.2 Paresthesia of skin; R29.898 Other symptoms and signs involving the musculoskeletal system
CPT/HCPCS: 72148

== ENCOUNTER 2025-01-14 08:54 | Outpatient (AMB) | payer MEDICAID, SELFPAY ==
--- NOTE | 2025-01-14 08:59 | MHC.OFFVIS ---
Vital Signs 01/14/25 09:01 Weight 168 lb BP 138/67 Blood Pressure Location Lt brachial Position Sitting Respiration 18 Pulse 68 Pulse Source Pulse Oximeter Pulse Oximetry (%) 95 Oxygen Delivery Method Room Air Intake Visit Reasons: MRI Results Intermediate Designer Required: No Allergies tramadol Allergy (Unknown, Verified 01/14/25 09:00) itching HPI Comments Details: Todd is back in my office to discuss the results of the MRI which was performed on 12/06/2024. The full report of the MRI see as below. Attention was attracted today the patient reports pain in prolonged sitting, pain with flexing forward, pain with trying to move lift objects from the floor, as well as pain with lying down in bed. The MRI demonstrated L4, L5, S1 Modic type 2 changes. I offered today patient to go for BVN RFA intercept. Patient agreed to go for this procedure. I will schedule him for this procedure as soon as he will get his insurance approval. Prior: He reported that his pain started many years ago, he was under care of this office in the past and received multiple injections in this office. He had medial branch blocks performed and transforaminal epidural steroid injections performed with moderate pain relief he was subject of the MRI available to me 4 years ago he had physical therapy multiple times which was not effective to control his pain. He had chiropractic manipulations which was not helping his pain. He had multiple injections performed with me see as below. Initially epidural steroid injections were helpful for pain control however now he denies any help from epidural steroid injections. Left L4-5 interlaminar injection 08/12/2020 Reports good results bilateral L4-5 and L5-S1 intra-articular facet joint injections 11/10/2020 Reports moderate results less than 40% pain improvement Repeat bilateral L4-5 L5-S1 intra-articular facet joint injections 04/06/2021 Reports moderate results. Bilateral L4-5 L5-S1 intra-articular facet joint injections 07/20/2021 Reports moderate results. 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 [facility] Medical History Polysubstance abuse Social History Alcohol intake: unknown Substance Use Type: Heroin Review of Systems Const All systems reviewed & are unremarkable except as noted in HPI and below ENT Reports Normal hearing present Neuro Reports Normal hearing present, Denies Abnormal speech present, Denies confusion and Denies Sensory deficit (Neuro) Psych Denies confusion Physical Exam Vital Signs: Last Vital Signs Pulse 68 01/14/25 09:01 Resp 18 01/14/25 09:01 BP 138/67 01/14/25 09:01 Pulse Ox 95 01/14/25 09:01 Oxygen Delivery Method Room Air 01/14/25 09:01 Const General: no acute distress; No confusion Orientation/consciousness: patient oriented x3 and No confusion Eyes General: appearance normal, both eyes and all related structures Pupils: Equal, round and reactive pupils present EOM: EOMs intact bilaterally Neck Neck: Yes full ROM Chest Chest palpation & inspection: normal inspection of the chest Resp Effort & Inspection: normal respiratory effort, able to speak in complete sentences, normal respiratory pattern, no audible wheezes and no cough Cardio Jugular venous distension: no JVD GI Inspection: Yes normal to inspection Back/Spine/Pelvis Other: On physical exam the patient is thin on inspection he assumes leaning forward posture. He reports mild discomfort on straight leg raising however the dorsiflexion of the feet in bilateral fashion does not increase pain in the back. Rosalio test seem to be positive however the palpation of the sacroiliac joint projection to the skin on the patient's back results in no tenderness on palpation. Pelvic compression and pelvic distraction test are negative. Palpation of the lumbar spine and lower thoracic spine is severe tenderness tender on paraspinal spinal regions approximately in the projection of the L4-L5 and S1 vertebra. Muscular strength of bilateral lower extremity seem to be symmetrical. There is no sensation deficits. Valsalva is positive for pain increase. He denies incontinence with urine or stool he denies urinary retention. Neuro General: patient oriented x3, gait normal and No confusion Cranial nerves: Yes CN's II-XII intact bilaterally, Yes Equal, round and reactive pupils present, Yes Normal hearing present and Yes Ability to bilaterally elevate shoulders present Speech: No Abnormal speech present Gait exam (Neuro): Normal gait present Motor exam (neuro): 5/5 motor strength present throughout Sensory Exam: No Sensory deficit (Neuro) Extrem General: No pedal edema Psych Speech and movement: Normal speech and movement present Affect: normal affect Attitude: cooperative Thought process: Normal thought process present Thought content: Normal thought content present Insight: Good insight present (Psych) Judgement: Good judgement present (Psych) Results Reviewed Results Reviewed: MRI lumbar spine. Findings: Last rib-bearing vertebra labeled T12. No bone marrow STIR signal abnormality, bilateral marginal osteophyte dimension and disc desiccation. Modic type 2 endplate changes at L5-S1. Bone marrow inhomogeneity. Grade 1 retrolisthesis L5-S1 on a degenerative basis. Focal hyperintense T2 signal in the posterior intervertebral disc L5-S1 likely focal annular fissure. Conus medullaris and at inferior endplate of L1 with normal signal. T12-L1 no herniated disc no neural foraminal stenosis. L1-L2 left subarticular herniated disc resulting in ventral indentation to thecal sac. No compression upon neural elements. Reduce AP diameter of the thecal sac and neural foramina with CSF effacement and encroachment of the neural elements. L3-L4 broad-based disc bulging facet joint and ligamentum flavum hypertrophy. Reduced AP diameter of the thecal sac and neural foramina. CSF effacement of the thecal sac and encroachment of the neural elements. L4-5: Broad-based disc bulging. Facet joint and ligamentum flavum hypertrophy. Reduced AP diameter of the thecal sac and neural foraminal likely encroaching of the neural elements. L5-S1: Broad-based disc bulging. Facet joint and ligamentum flavum hypertrophy. Reduced AP diameter of the thecal sac and the neural foraminal likely encroaching on the neural elements. I personally examined the MRI images and in my opinion there are Modic type 2 changes at L4, L5, and S1 vertebra. Assessment & Plan Assessment & Plan (1) Polysubstance abuse: Code(s): F19.10 - Other psychoactive substance abuse, uncomplicated Category: Medical (2) Disc degeneration, lumbar: Code(s): M51.36 - Other intervertebral disc degeneration, lumbar region Category: Medical (3) Spondylosis of lumbar region without myelopathy or radiculopathy: Code(s): M47.816 - Spondylosis without myelopathy or radiculopathy, lumbar region Category: Medical (4) Chronic pain syndrome: Code(s): G89.4 - Chronic pain syndrome Category: Medical (5) Radiculopathy, lumbar region: Code(s): M54.16 - Radiculopathy, lumbar region Category: Medical (6) Spinal stenosis: Code(s): M48.00 - Spinal stenosis, site unspecified Category: Medical (7) Vertebrogenic low back pain: Code(s): M54.51 - Vertebrogenic low back pain Category: Medical Plan Although there is some minimal spinal canal stenosis the MRI of this patient he reports that flexing forward aggravates his pain and prolonged sitting aggravates his pain as well he reports most severe pain in the spine when he is flattened bed as well. He reports pain aggravated with attempt to lift light objects from the floor as well as with prolonged sitting. Valsalva maneuver is positive for pain increase. 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 I will schedule him for BVN RFA intercept. I will see him after the procedure. Patient Instructions: I here by testify that I spent 30 minutes in conversation with this patient as well as evaluating his diagnostic studies and evaluating diagnostic images, planning his care and organizing this note. Coding Level of Care Code Est Pt Level 4 (02650) Diagnoses Polysubstance abuse F19.10 Disc degeneration, lumbar M51.36 Spondylosis of lumbar region without myelopathy or radiculopathy M47.816 Chronic pain syndrome G89.4 Radiculopathy, lumbar region M54.16 Spinal stenosis M48.00 Vertebrogenic low back pain M54.51
[2025-01-14 09:01] VITALS: BP 138/67; PULSE 68; RESP 18; O2SAT 95
--- OUTSIDE RECORDS SUMMARY | 2025-01-14 10:29 | XMS_ITS | Encounter Summary ---
Author Organization [employer] Address [address] [place] [address] 7 [place] [address] Care Team Providers Care Build Manager Name Role Phone Socorro Lyon MD Primary Care Provider [phone] Encounter Details Date Type Department Care Team ([facility] st Contact Info) Description 11/16/2024 Orders Only [facility] [address] [place] [address] Socorro Lyon MD [address] [place] [address] Screening for diabetes mellitus (Primary Dx); Vitamin D deficiency; Impaired fasting glucose; Dyslipidemia; Routine screening for STI (sexually transmitted infection) Social History Tobacco Use Types Packs/Day Years [...] as of this encounter Plan of Treatment Upcoming Encounters Date Type Department Care Team (Late st Contact Info) Description 02/03/2025 10:45 AM EDT Office Visit [facility] [address] [place], [place] [phone] Socorro Lyon MD [address] [place], [place] [phone] Scheduled Orders Name Type Priority Associated Diagnoses Orde r Schedule Hemoglobin A1c Lab Routine Screening for diabetes mellitus Impaired fasting glucose Expected: 11/16/2024 (Approximate), Expires: 11/16/2025 Comprehensive Metabolic Panel Lab Routine Dyslipidemia Expected: 11/16/2024 (Approximate), Expires: 11/16/2025 Lipid Panel with Reflex to Direct LDL Lab Routine Dyslipidemia Expected: 11/16/2024 (Approximate), Expires: 11/16/2025 Chlamydia/N. Gonorrhoeae, PCR, Urine Lab Routine Routine screening for STI (sexually transmitted infection) Expected: 11/16/2024 (Approximate), Expires: 11/16/2025 Hepatitis B surface antigen, EIA Lab Routine Routine screening for STI (sexually transmitted infection) Expected: 11/16/2024 (Approximate), Expires: 11/16/2025 Hepatitis C Antibody with Reflex to HCV, RNA, Quantitative, Real-Time PCR Lab Routine Routine screening for STI (sexually transmitted infection) Expected: 11/16/2024 (Approximate), Expires: 11/16/2025 Syphilis Screen Lab Routine Routine screening for STI (sexually transmitted infection) Expected: 11/16/2024 (Approximate), Expires: 11/16/2025 HIV-1/2 Antigen and Antibodies, Fourth Generation, with Reflexes Lab Routine Routine screening for STI (sexually transmitted infection) Expected: 11/16/2024 (Approximate), Expires: 11/16/2025 Vitamin D, 25-Hydroxy, Total, Immunoassay Lab Routine Vitamin D deficiency Expected: 11/16/2024 (Approximate), Expires: 11/16/2025 documented as of this encounter Procedures Procedure Name Priority Date/Time Associated Diagnosis Comments MR LUMBAR SPINE WO CONTRAST Routine 2024 9:32 AM EDT documented in this encounter Results * MR Lumbar Spine w/o Contrast (2024 9:32 AM EDT) Anatomical Region Laterality Modality Spine, L-spine Magnetic Resonan ce 2024 9:32 AM EDT Narrative 12/08/2024 7:23 AM EDT [place] [address] Magnetic Resonance Report Signed Patient: Todd Car MR#: [id number] : 1960 Acct:[id number] Age/Sex: 64 / M ADM Date: 12/06/24 Loc: HO.MRI Attending Dr: Rj Corrales MD Ordering Physician: Rj Corrales MD Date of Service: 12/06/24 Procedure(s): MR lumbar spine wo con Accession Number(s): [id number] cc: Rj Corrales MD; Socorro Lyon MD EXAMINATION: MR LUMBAR SPINE WITHOUT CONTRAST CLINICAL INFORMATION: Low back pain. Bilateral lower extremity pain, weakness and numbness. COMPARISON: October 30, 2019. TECHNIQUE: MRI of the lumbar spine was obtained using routine sequences without contrast. FINDINGS: Last rib-bearing vertebra labeled T12. No bone marrow STIR signal abnormality. Multilevel marginal osteophytes dimension and disc desiccation. Modic type II endplate changes at L5-S1. Bone marrow inhomogeneity. Grade 1 retrolisthesis L5-S1 on a degenerative basis. Focal hyperintense T2 signal in the posterior intervertebral disc L5-S1 likely focal annular fissure. Conus medullaris and at inferior endplate of L1 with normal signal. T12-L1: No herniated disc. No neuroforamina stenosis. L1-2: Left subarticular herniated disc resulting in ventral indentation to the thecal sac. No compression upon neural elements. L2-3: Broad-based disc bulging. Facet joint and ligamentum flavum hypertrophy. Reduced AP diameter of the thecal sac and neuroforamina with CSF effacement and encroachment of the neural elements. L3-4: Broad-based disc bulging. Facet joint and ligamentum flavum hypertrophy. Reduced AP diameter of the thecal sac and neuroforamina. CSF effacement of the thecal sac and encroachment of the neural elements. L4-5: Broad-based disc bulging. Facet joint and ligamentum flavum hypertrophy. Reduced AP diameter of the thecal sac and neuroforamina likely encroaching the neural elements. L5-S1: Broad-based disc bulging. Facet joint and ligamentum flavum hypertrophy. Reduced AP diameter of the thecal sac and the neural foramina likely encroaching the neural elements. No prevertebral compartment hematoma, mass or fluid collection. Multifocal hyperintense T2 cystic lesions both kidneys. Soft tissue fullness in both adrenal glands. MR/MR lumbar spine wo con IMPRESSION: Multilevel thoracolumbar spondylosis resulting in central spinal canal and bilateral neuroforamina stenosis from L2-3 to L5-S1 encroaching the neural elements. Left subarticular herniated disc at L1-2 without compression upon neural elements. Bilateral renal cysts. Soft tissue fullness, adrenal glands, statistically may represent adrenal hyperplasia. Electronically signed by: Con Conley MD 12/08/2024 07:21 AM EDT Dictated By: Con Guadarrama MD Signed By: <Electronically signed by Con Carmichael MD in OV> 12/08/24 0721 DD/ 0932 TD/TT: 12/06/24 1011 [facility] Independence Case Manager: Procedure Note Donotuseinterpreter, Image - 12/08/[address] [address] Magnetic Resonance Report Signed Patient: Todd Car AMR#: [id number] : 1960Acct:[id number] Age/Sex: 64 / MADM Date: 12/06/24 Loc: HO.MRI Attending Dr: Rj Corrales MD Ordering Physician: Rj Corrales MD Date of Service: 12/06/24 Procedure(s): MR lumbar spine wo con Accession Number(s): [id number] cc: Rj Corrales MD; Socorro Lyon MD EXAMINATION: MR LUMBAR SPINE WITHOUT CONTRAST CLINICAL INFORMATION: Low back pain. Bilateral lower extremity pain, weakness and numbness. COMPARISON: October 30, 2019. TECHNIQUE: MRI of the lumbar spine was obtained using routine sequences without contrast. FINDINGS: Last rib-bearing vertebra labeled T12. No bone marrow STIR signal abnormality. Multilevel marginal osteophytes dimension and disc desiccation. Modic type II endplate changes at L5-S1. Bone marrow inhomogeneity. Grade 1 retrolisthesis L5-S1 on a degenerative basis. Focal hyperintense T2 signal in the posterior intervertebral disc L5-S1 likely focal annular fissure. Conus medullaris and at inferior endplate of L1 with normal signal. T12-L1: No herniated disc. No neuroforamina stenosis. L1-2: Left subarticular herniated disc resulting in ventral indentation to the thecal sac. No compression upon neural elements. L2-3: Broad-based disc bulging. Facet joint and ligamentum flavum hypertrophy. Reduced AP diameter of the thecal sac and neuroforamina with CSF effacement and encroachment of the neural elements. L3-4: Broad-based disc bulging. Facet joint and ligamentum flavum hypertrophy. Reduced AP diameter of the thecal sac and neuroforamina. CSF effacement of the thecal sac and encroachment of the neural elements. L4-5: Broad-based disc bulging. Facet joint and ligamentum flavum hypertrophy. Reduced AP diameter of the thecal sac and neuroforamina likely encroaching the neural elements. L5-S1: Broad-based disc bulging. Facet joint and ligamentum flavum hypertrophy. Reduced AP diameter of the thecal sac and the neural foramina likely encroaching the neural elements. No prevertebral compartment hematoma, mass or fluid collection. Multifocal hyperintense T2 cystic lesions both kidneys. Soft tissue fullness in both adrenal glands. MR/MR lumbar spine wo con IMPRESSION: Multilevel thoracolumbar spondylosis resulting in central spinal canal and bilateral neuroforamina stenosis from L2-3 to L5-S1 encroaching the neural elements. Left subarticular herniated disc at L1-2 without compression upon neural elements. Bilateral renal cysts. Soft tissue fullness, adrenal glands, statistically may represent adrenal hyperplasia. Electronically signed by: Con Conley MD 12/08/2024 07:21 AM EDT RP Dictated By: Con Guadarrama MD Signed By: <Electronically signed by Con Carmichael MDin OV> 12/08/24 0721 DD/ 0932 TD/TT: 12/06/24 1011 [facility] Case Manager: [facility] External Provider IMG MRI PROCEDURES Final Result documented in this encounter Visit Diagnoses Diagnosis Screening for diabetes mellitus- Primary Vitamin D deficiency Impaired fasting glucose Dyslipidemia Other and unspecified hyperlipidemia Routine screening for STI (sexually transmitted infection) Screening examination for venereal disease documented in this encounter Additional Health Concerns Assessment Noted Time PHQ-9 Depression Total Score: 0 06/26/19 23 9:16 AM EST documented as of this encounter Care Teams Build Manager Relationship Specialty Start Date End Date Socorro Lyon MD [address] [place] [address] PCP - General Family Medicine 04/30/18 documented as of this encounter
--- OUTSIDE RECORDS SUMMARY | 2025-01-14 10:29 | XMS_ITS | Clinical Summary ---
Author Organization [employer] Address [address] [place] [address] 7t [place] [address] Care Team Providers Care Entry Level Sales Representative Name Role Phone Socorro Lyon MD Primary Care Provider [phone] Allergies Active Allergy Reactions Criticality Noted Date [...] 10:14 AM EDT): - currently followed by [facility]. Seen till 2016, then changed to [facility] pain management due to insurance. Most recently seen on 02/13/22 -treated by [facility] pain management, Dr. Elias, last seen in September 2019 --s/p epidural injection for DDD L5-S1, disk hernia with radiculopathy ([facility], [facility]) --s/p MBB on 04/01/19, and 09/23/19 ([facility]). -resumed care with [facility] provider, last seen on 10/21/20, --core strengthening PT was recommended --prescribed topiramate, and pt has been taking it and states it has been effective --Last visit 04/06/21 Urgent referral to [facility] pain management was sent, but unable to [...] appointment on 08/11/22 for reevaluation. -seen by [facility] Rheumatology, last seen in May 2019. Vitamin [...] EST): -Risk factors: smoking -Lipid profile 06/15/22 -[id number] risk 9.7%. Moderate intensity statin therapy is [...] seeing [facility] till 2016, then changed to [facility] pain management due to insurance. -treated by [facility] pain management, Dr. Elias, last seen in September 2019 --s/p epidural injection for DDD L5-S1, disk hernia with radiculopathy ([facility], [facility]) --s/p MBB on 04/01/19, and 09/23/19 ([facility]). -resumed care with [facility] provider in 2020 [...] appt with Neurosurgeon on 08/11/22. -seen by [facility] Rheumatology, last seen in May 2019. Referred to a specialist who is willing to provide injection treatment; referred to [facility] pain management Assessment & Plan (09/29/2022 6:40 AM EDT): - [facility] and neurosurgeon, Dr. George. -Pt was seeing [facility] till 2015, then changed to [facility] pain management due to insurance. -treated by [facility] pain management, Dr. Elias, last seen in September 2019 --s/p epidural injection for DDD L5-S1, disk hernia with radiculopathy ([facility], [facility]) --s/p MBB on 04/01/19, and 09/23/19 ([facility]). -resumed care with [facility] provider in 2020 [...] appt with Neurosurgeon on 08/11/22. -seen by [facility] Rheumatology, last seen in May 2019. Referred to a specialist who is willing to provide injection treatment; referred to [facility] pain management Assessment & Plan (07/19/2022 10:20 AM EDT): - currently followed by [facility] and neurosurgeon, Dr. George. -Pt was seeing [facility] till 2015, then changed to [facility] pain management due to insurance. -treated by [facility] pain management, Dr. Elias, last seen in September 2019 --s/p epidural injection for DDD L5-S1, disk hernia with radiculopathy ([facility], [facility]) --s/p MBB on 04/01/19, and 09/23/19 ([facility]). -resumed care with [facility] provider in 2020 [...] appt with Neurosurgeon on 08/11/22. -seen by [facility] Rheumatology, last seen in May 2019. Assessment & Plan (06/26/2022 11:53 AM EST): - currently followed [facility], Dr. George. -Pt was seeing [facility] till 2015, then changed to [facility] pain management due to insurance. -treated by [facility] pain management, Dr. Elias, last seen in September 2019 --s/p epidural injection for DDD L5-S1, disk hernia with radiculopathy ([facility], [facility]) --s/p MBB on 04/01/19, and 09/23/19 ([facility]). -resumed care with [facility] provider in 2020 [...] that surgery is not indicated. -seen by [facility] Rheumatology, last seen in May 2019. Assessment & Plan (06/16/2022 6:54 AM EST): - currently followed [facility] neurosurgeon, Dr. George. -Pt was seeing [facility] till 2016, then changed to [facility] pain management due to insurance. -treated by [facility] pain management, Dr. Elias, last seen in September 2019 --s/p epidural injection for DDD L5-S1, disk hernia with radiculopathy ([facility], [facility]) --s/p MBB on 04/01/19, and 09/23/19 ([facility]). -resumed care with [facility] provider in 2020 [...] that surgery is not indicated. -seen by [facility] Rheumatology, last seen in May 2019. Impaired [...] Neurosurgeon on 08/11/22. Will contact the previous Radio Frequency Technician to continue injections; if unable to resume injections from the Previous Radio Frequency Technician, will refer patient to another specialist to resume treatment. Assessment & Plan (06/26/2022 11:53 AM EST): -on methadone, currently tapering down. -consider repeating EKG after tapering it off. Chronic low back pain 04/18/2012 Assessment & Plan (09/19/2022 2:32 PM EDT): Referred to Pain Management [facility], pt will call the office to request an early appt. -Pt will also call [facility] regarding to alternative treatment -encouraged to try acupuncture Assessment & Plan (07/19/2022 9:56 AM EDT): Currently, Following with: [facility], Dr. George. -Pt was seeing [facility] till 2015, then changed to [facility] pain management due to insurance. -treated by [facility] pain management, Dr. Elias, last seen in September 2019 --s/p epidural injection for DDD L5-S1, disk hernia with radiculopathy ([facility], [facility]) --s/p MBB on 04/01/19, and 09/23/19 ([facility]). -resumed care with [facility] provider in 2020 --core strengthening PT was [...] that surgery is not indicated. -seen by [facility] Rheumatology, last seen in May 2019. -seen by [facility] pain management, Dr. Elias, last seen September 2019 Assessment & Plan (06/26/2022 9:19 AM EST): Currently, Following with: [facility] Neurosurgeon[facility]. George. -Pt was seeing [facility] till 2015, then changed to [facility] pain management due to insurance. -treated by [facility] pain management, Dr. Elias, last seen in September 2019 --s/p epidural injection for DDD L5-S1, disk hernia with radiculopathy ([facility], [facility]) --s/p MBB on 04/01/19, and 09/23/19 ([facility]). -resumed care with [facility] provider in 2020 [...] that surgery is not indicated. -seen by [facility] Rheumatology, last seen in May 2019. -seen by [facility] pain management, Dr. Elias, last seen September 2019 Assessment & Plan (06/16/2022 6:54 AM EST): - currently followed by [facility] and neurosurgeon, Dr. George. -Pt was seeing [facility] till 2016, then changed to [facility] pain management due to insurance. -treated by [facility] pain management, Dr. Elias, last seen in September 2019 --s/p epidural injection for DDD L5-S1, disk hernia with radiculopathy ([facility]) --s/p MBB on 04/01/19, and 09/23/19 ([facility]). -resumed care with [facility] provider in 2020 --core strengthening PT was [...] that surgery is not indicated. -seen by [facility] Rheumatology, last seen in May 2019. Depressive disorder 04/18/2012 Assessment & Plan (07/19/2022 10:20 AM EDT): -Currently in remission Assessment & Plan (06/26/2022 12:45 PM EST): -Currently in remission Opioid dependence on agonist therapy 04/18/2012 Assessment & Plan (06/16/2022 6:55 AM EST): -Continue methadone clinic, currently 5 mg daily Osteoarthritis 04/18/2012 Shoulder pain 04/18/2012 Encounters Date Type Department Care Team Description 11/16/2024 Orders Only [facility] [address] [place] [id number] Socorro Lyon MD Screening for diabetes mellitus (Primary Dx); Vitamin D deficiency; Impaired fasting glucose; Dyslipidemia; Routine screening for STI (sexually transmitted infection) 11/16/2024 Telephone [facility] [address] [place] [phone] Socorro Lyon MD from Last 3 Months Immunizations Immunization Administration Dates Next Due HepB-CpG 06/26/2022 TD [...] 69 11/20/2023 9:32 AM EDT Temperature 36.8 C (98.3 F) 11/20/2023 9:32 AM EDT Respiratory Rate 18 11/20/2023 9:32 AM EDT Oxygen Saturation 96% 11/20/2023 9:32 AM EDT Inhaled Oxygen Concentration - - Weight 78 kg (172 lb) 11/20/2023 9:32 AM EDT Height 179.8 cm (5' 10.8 ) 09/19/2022 1:46 PM ED T Body Mass Index 24.12 09/19/2022 1:46 PM EDT Plan of Treatment Upcoming Encounters Date Type Department Care Team (Late st Contact Info) Description 02/03/2025 10:45 AM EDT Office Visit [facility] [address] [place] [address] Socorro Lyon MD [address] [place] [address] Health Maintenance Due Date Last Done Comments [...] 06/26/2023 06/26/2022, 06/26/19 SDOH Screening 06/26/2023 06/26/2022 Tobacco Screening 11/19/2024 11/20/2023 COVID-19 Vaccine (1 - season) 2024 Influenza Vaccine (#1) 2024 Lipid Panel 06/15/2027 06/15/2022, 11/04/2019 DTaP/Tdap/Td Vaccines (3 - Td or Tdap) 10/10/2033 10/11/2023, 05/07/2019, 12/18/2017, Additional history exists RSV Patients and Patients Aged 60 years or older (1 - 1-dose 75+ series) 12/05/2034 Hepatitis C Screening Completed 06/15/2022, 020 HIB [...] patient's age to complete this topic Meningococcal B Vaccine Aged Out No l onger eligible based on patient's age to complete [...] WO CONTRAST Routine 2024 9:32 AM EDT HEPATITIS C AB W/REFL TO HCV RNA, QN, PCR Routine 06/15/2022 10:43 AM EST Left groin mass LIPID PANEL WITH REFLEX TO DIRECT LDL Routine 06/15/2022 10:43 AM EST Weight loss from Last 3 Months or Most Recently Relevant to Health Maintenance Results * MR Lumbar Spine w/o Contrast (2024 9:32 AM EDT) Anatomical Region Laterality Modality Spine, L-spine Magnetic Resonan ce 2024 9:32 AM EDT Narrative 12/08/2024 7:23 AM EDT [address] [address] Magnetic Resonance Report Signed Patient: Todd Car MR#: [id number] : 1960 Acct:[id number] Age/Sex: 64 / M ADM Date: 12/06/24 Loc: HO.MRI Attending Dr: Rj Corrales MD Ordering Physician: Rj Corrales MD Date of Service: 12/06/24 Procedure(s): MR lumbar spine wo con Accession Number(s): [id number] cc: Rj Corrales MD; Socorro Lyon MD [...] 12/08/24 0721 DD/ 0932 TD/TT: 12/06/24 1011 Carpet Winder: Procedure Note Donotuseinterpreter, Image - 12/08/[address] [address] Magnetic Resonance Report Signed Patient: Todd Car AMR#: [id number] : 1960Acct:[id number] Age/Sex: 64 / MADM Date: 12/06/24 Loc: HO.MRI Attending Dr: Rj Corrales MD Ordering Physician: Rj Corrales MD Date of Service: 12/06/24 Procedure(s): MR lumbar spine wo con Accession Number(s): [id number] cc: Rj Corrales MD; Socorro Lyon MD [...] 12/08/24 0721 DD/ 0932 TD/TT: 12/06/24 1011 Carpet Winder: [facility] External Provider IMG MRI PROCEDURES Final Result * Lipid Panel with Reflex to Direct LDL (06/15/2022 10:43 AM EST) Cholesterol, Total 155 <200 mg/dL [employer] HDL Cholesterol 68 > OR = 40 mg/dL [employer] Triglycerides 57 <150 mg/dL [employer] LDL Cholesterol 74 mg/dL (calc) [employer] Comment: Reference range: <100 Desirable range <100 mg/dL for primary prevention; <70 mg/dL for patients with CHD or diabetic patients with > or = 2 CHD risk factors. LDL-C is now calculated using the Ethan-Martinez calculation, which is a validated novel method providing better accuracy than the Friedewald equation in the estimation of LDL-C. Ethan SS et al. DARIAN. 2013;310(19): 0397-6015 (http://education.[employer]/faq/XUM058) Chol/HDLC Ratio 2.3 <5.0 (calc) [employer] Non-HDL Cholesterol 87 <130 mg/dL (calc) [employer] Comment: For patients with diabetes plus 1 major ASCVD risk factor, treating to a non-HDL-C goal of <100 mg/dL (LDL-C of <70 mg/dL) is considered a therapeutic option. 06/15/2022 10:4 3 AM EST 06/15/2022 10:43 AM EST Narrative [facility] - 06/17/2022 2:30 AM EST FASTING:YES FASTING: YES Socorro Lyon MD LAB BLOOD ORDERABLES Final Resul t Performing Organization Address [facility] de Phone Number [address], [place] [address] [facility] [address] [place] [address], (Nl2) [place] [address] * Hepatitis C Antibody with Reflex to HCV, RNA, Quantitative, Real-Time PCR (06/15/2022 10:43 AM EST) Hepatitis C Antibody NON-REACT JACE NON-REACT JACE [facility] Index <0.02 <1.00 [facility] Comment: HCV antibody was non-reactive. There is no laboratory evidence of HCV infection. In most cases, no further action is required. However, if recent HCV exposure is suspected, a test for HCV RNA (test code 22561) is suggested. For additional information please refer to http://education.[employer]/faq/WZH18x8 (This link is being provided for informational/ educational purposes only.) Blood Venous blood specimen / Unknown 06/15/2022 10:43 AM EST 06/15/2022 10:43 AM EST Narrative [facility] - 06/17/2022 2:30 AM EST FASTING:YES FASTING: YES Socorro Lyon MD LAB BLOOD ORDERABLES Final Resul t Performing Organization Address [facility] Co de Phone Number [address], [place] [address] [facility] [address] [place] [address], ([address]) [place] [address] from Last 3 Months or Most Recently Relevant to Health Maintenance Insurance Care Teams Entry Level Sales Representative Relationship Specialty Start Date End Date Socorro Lyon MD [address] [place] [phone] PCP - General Family Medicine 04/30/18
--- OUTSIDE RECORDS SUMMARY | 2025-01-14 10:29 | XMS_ITS | Encounter Summary ---
Author Organization [employer] Address [address] [place] [address] Care Team Providers Care Sausage Meat Trimmer Name Role Phone Socorro Lyon MD Primary Care Provider [phone] Reason for Visit * Reason Onset Date Comments Request For Order(s) 08/09/2022 Encounter Details Date Type Department Care Team ([facility] st Contact Info) Description 08/09/2022 Telephone [facility] [address] [place] [address] Socorro Lyon MD [address] [place] [address] Request For Order(s) Social History Tobacco Use [...] Order signed by PCP and faxed to [facility] * Telephone Encounter - Nazia Thomas RN - 08/16/2022 9:50 AM EDT Call to [employer]. They originally received a handwritten order that was missing a signature. Printed out electronic order and placed on PCP desk for signature as they are still requesting a handwritten signature with electronic signature. * Telephone Encounter - Vimal Martinez - 08/09/2022 3:39 PM EDT Tc from bob with [employer] Requesting an sign order by PCP. Reference number - [id number] Please contact bob at [phone] documented in this encounter Plan of Treatment Upcoming Encounters Date Type Department Care Team (Late st Contact Info) Description 02/03/2025 10:45 AM EDT Office Visit [facility] [address] [place] [phone] Socorro Lyon MD [address] [place] [address] documented as of this encounter Visit Diagnoses Not on filedocumented in this encounter Additional Health Concerns Assessment Noted Time PHQ-9 Depression Total Score: 0 06/26/19 23 9:16 AM EST documented as of this encounter Care Teams Sausage Meat Trimmer Relationship Specialty Start Date End Date Socorro Lyon MD [address] [place] [phone] PCP - General Family Medicine 04/30/18 documented as of this encounter
--- OUTSIDE RECORDS SUMMARY | 2025-01-14 10:29 | XMS_ITS | Encounter Summary ---
Author Organization [employer] Address [address] [place] [address] Care Team Providers Care Bag Repairer Name Role Phone Socorro Lyon MD Primary Care Provider [phone] Encounter Details Date Type Department Care Team (Late Contact Info) Description 04/21/2022 Orders Only [facility] [address] [place] [address] Socorro Lyon MD [address] [place] [address] [phone] Degeneration of lumbosacral intervertebral disc (Primary Dx); [...] Description 02/03/2025 10:45 AM EDT Office Visit [facility] [address] [place] [address] [phone] Socorro Lyon MD [address] [place] [address] [phone] documented as of this encounter Procedures Procedure Name Priority Date/Time Associated Diagnosis Comments COVID-19 ID NOW (RIZVI) Routine 05/17/2022 9:02 AM EST Degeneration of lumbosacral intervertebral disc documented in this encounter Results * COVID-19 ID NOW (RIZVI) (05/17/2022 9:02 AM EST) IDNOW SERIAL# [id number] [facility] COVID-19 TEST Negative Negative [facility] COVID-19 NOTE See Note [facility] Comment: Results are for the identification of SARS-CoV2 RNA. TheSARS-CoV2 RNA is generally detectable in respiratory samplesduring the acute phase of infection. Positive results areindicative of the presence of SARS-CoV-2 RNA; clinicalcorrelation with patient history and other diagnosticinformation is necessary to determine patient infectionstatus. Positive results do not rule out bacterial infectionor co- infection with other viruses.Testing facilities within the [facility] and [facility] are required to report all positive results [...] use by authorized laboratories.Testing performed on the Rizvi ID NOW utilizing [facility]. 05/17/2022 9:02 AM EST 05/17/2022 9:02 AM EST us [facility] Exter nal Provider LAB MOLECULAR DIAGNOSTICS ORDERABLES Final Result [facility] [address] [place] [phone] documented in this encounter Visit Diagnoses Diagnosis Degeneration of lumbosacral intervertebral disc- Primary Degeneration of lumbar or lumbosacral intervertebral disc Chronic bilateral low back pain, unspecified whether sciatica present documented in this encounter Care Teams Bag Repairer Relationship Specialty Start Date End Date Socorro Lyon MD [address] [place] [address] PCP - General Family Medicine 04/30/18 documented as of this encounter
--- OUTSIDE RECORDS SUMMARY | 2025-01-14 10:29 | XMS_ITS | Encounter Summary ---
Author Organization [employer] Address [address] [place] [address] [address], [place] [address] Care Team Providers Care Shoe Lacer Name Role Phone Socorro Lyon MD Primary Care Provider [phone] Encounter Details Date Type Department Care Team (Late st Contact Info) Description 09/18/2022 Orders Only [facility] [address] [place] [address] Socorro Lyon MD [address] [place] [address] Lumbar disc disease with radiculopathy (Primary Dx); [...] Description 02/03/2025 10:45 AM EDT Office Visit [facility] [address] [place] [address] Socorro Lyon MD [address] [place] [address] documented as of this encounter Visit Diagnoses [...] documented as of this encounter Care Teams Shoe Lacer Relationship Specialty Start Date End Date Socorro Lyon MD [address] [place] [address] PCP - General Family Medicine 04/30/18 documented as of this encounter
== END 2025-01-14 09:09 | disposition home or self-care (01) ==
LOC: HO.PMC 08:55
PROVIDERS: PCP Family Medicine; Visit Provider Anesthesiology
DX: F19.10 Other psychoactive substance abuse, uncomplicated (principal); M51.369 Other intervertebral disc degeneration, lumbar region without mention of lumbar back pain or lower extremity pain; M47.816 Spondylosis without myelopathy or radiculopathy, lumbar region; G89.4 Chronic pain syndrome; M54.16 Radiculopathy, lumbar region; M48.00 Spinal stenosis, site unspecified; M54.51 Vertebrogenic low back pain
CPT/HCPCS: 99214

== ENCOUNTER → 2025-01-14 08:54 | Outpatient (BNVA) | payer MEDICAID, SELFPAY | PROVIDERS: PCP Family Medicine; Visit Provider Anesthesiology | DX: M47.816 Spondylosis without myelopathy or radiculopathy, lumbar region (principal); M51.369 Other intervertebral disc degeneration, lumbar region without mention of lumbar back pain or lower extremity pain; M54.16 Radiculopathy, lumbar region; M48.00 Spinal stenosis, site unspecified; M54.51 Vertebrogenic low back pain; F19.10 Other psychoactive substance abuse, uncomplicated; G89.4 Chronic pain syndrome | CPT/HCPCS: 99212 ==

== ENCOUNTER → 2025-02-13 09:28 | Day surgery (SDC) | payer MEDICARE, MEDICAID, SELFPAY ==
--- OUTSIDE RECORDS SUMMARY | 2025-01-29 13:28 | XMS_ITS | Encounter Summary ---
Author Organization [employer] Address [address] [place] [address] [address] [place] [address] Care Team Providers Care Machine Spring Former Name Role Phone Socorro Lyon MD Primary Care Provider [phone] Encounter Details Date Type Department Care Team (Late st Contact Info) Description 09/18/2022 Orders Only [facility] [address] [place] [address] Socorro Lyon MD [address] [place] [address] Lumbar disc disease with radiculopathy (Primary Dx); [...] Description 02/03/2025 10:45 AM EDT Office Visit [facility] [address] [place] [address] Socorro Lyon MD [address] [place] [address] documented as of this encounter Visit Diagnoses [...] documented as of this encounter Care Teams Machine Spring Former Relationship Specialty Start Date End Date Socorro Lyon MD [address] [place] [phone] PCP - General Family Medicine 04/30/18 documented as of this encounter
--- OUTSIDE RECORDS SUMMARY | 2025-01-29 13:28 | XMS_ITS | Encounter Summary ---
Author Organization [employer] Address [address] [place] [address] [address] [place] [address] Care Team Providers Care Motor Rebuilder Name Role Phone Socorro Lyon MD Primary Care Provider [phone] Reason for Visit * Reason Comments Pre-visit Planning (Unable to reach for PVP screening and or LVM) to be completed in office Encounter Details Date Type Department Care Team ([facility] st Contact Info) Description 01/27/2025 Patient Outreach [facility] [address] [place] [address] Socorro Lyon MD [address] [place] [address] Pre-visit Planning ((Unable to reach for PVP screening and or LVM) to be completed in office) Social History Tobacco Use Types Packs/Day Years [...] AM EDT documented as of this encounter Progress Notes * Pearl Manzano - 01/27/2025 1:32 PM EDT CC Pearl placed outbound call to patient to complete pre-visit planning. No answer at this time. Patient name and were not confirmed. CC unable to leave a voice message. documented in this encounter Plan of Treatment Upcoming Encounters Date Type Department Care Team (Late st Contact Info) Description 02/03/2025 10:45 AM EDT Office Visit [facility] [address] [place] [address] Socorro Lyon MD [address] [place] [address] documented as of this encounter Visit Diagnoses Not on filedocumented in this encounter Additional Health Concerns Assessment Noted Time PHQ-9 Depression Total Score: 0 06/26/19 23 9:16 AM EST documented as of this encounter Care Teams Motor Rebuilder Relationship Specialty Start Date End Date Socorro Lyon MD [address] [place] [address] PCP - General Family Medicine 04/30/18 documented as of this encounter
--- OUTSIDE RECORDS SUMMARY | 2025-01-29 13:28 | XMS_ITS | Encounter Summary ---
Author Organization [employer] Address [address] [place] [address] 7 [place] [address] Care Team Providers Care Occupational Therapy Aide Name Role Phone Socorro Lyon MD Primary Care Provider [phone] Encounter Details Date Type Department Care Team ([facility] st Contact Info) Description 11/16/2024 Orders Only [facility] [address] [place] [address] Socorro Lyon MD [address] [place] [address] Screening for diabetes mellitus (Primary Dx); Vitamin [...] Description 02/03/2025 10:45 AM EDT Office Visit [facility] [address] [place], [place] [phone] Socorro Lyon MD [address] [place], [place] [phone] Scheduled Orders Name Type Priority Associated Diagnoses [...] AM EDT Narrative 12/08/2024 7:23 AM EDT [place] [address] Magnetic Resonance Report Signed Patient: Todd Car MR#: [id number] : 1960 Acct:[id number] Age/Sex: 64 / M ADM Date: 12/06/24 Loc: HO.MRI Attending Dr: Rj Corrales MD Ordering Physician: Rj Corrales MD Date of Service: 12/06/24 Procedure(s): MR lumbar spine wo con Accession Number(s): [id number] cc: Rj Corrales MD; Socorro Lyon MD [...] 12/08/24 0721 DD/ 0932 TD/TT: 12/06/24 1011 Vacuum Extractor Operator: Procedure Note Donotuseinterpreter, Image - 12/08/[address] [address] Magnetic Resonance Report Signed Patient: Todd Car AMR#: [id number] : 1960Acct:[id number] Age/Sex: 64 / MADM Date: 12/06/24 Loc: HO.MRI Attending Dr: Rj Corrales MD Ordering Physician: Rj Corrales MD Date of Service: 12/06/24 Procedure(s): MR lumbar spine wo con Accession Number(s): [id number] cc: Rj Corrales MD; Socorro Lyon MD [...] 12/08/24 0721 DD/ 0932 TD/TT: 12/06/24 1011 Vacuum Extractor Operator: [facility] External Provider IMG MRI PROCEDURES Final [...] documented as of this encounter Care Teams Occupational Therapy Aide Relationship Specialty Start Date End Date Socorro Lyon MD [address] [place] [address] PCP - General Family Medicine 04/30/18 documented as of this encounter
--- OUTSIDE RECORDS SUMMARY | 2025-01-29 13:28 | XMS_ITS | Encounter Summary ---
Author Organization [employer] Address [address] [place] [address] Care Team Providers Care Paint Grinder Name Role Phone Socorro Lyon MD Primary Care Provider [phone] Reason for Visit * Reason Onset Date Comments Request For Order(s) 08/09/2022 Encounter Details Date Type Department Care Team ([facility] st Contact Info) Description 08/09/2022 Telephone [facility] [address] [place] [address] Socorro Lyon MD [address] [place] [address] Request For Order(s) Social History Tobacco Use [...] Order signed by PCP and faxed to [employer] * Telephone Encounter - Nazia Thomas RN - 08/16/2022 9:50 AM EDT Call to [employer]. They originally received a handwritten order that was missing a signature. Printed out electronic order and placed on PCP desk for signature as they are still requesting a handwritten signature with electronic signature. * Telephone Encounter - Vimal Martinez - 08/09/2022 3:39 PM EDT Tc from bob with [employer] Requesting an sign order by PCP. Reference number - [id number] Please contact bob at [phone] documented in this encounter Plan of Treatment Upcoming Encounters Date Type Department Care Team (Late st Contact Info) Description 02/03/2025 10:45 AM EDT Office Visit [facility] [address] [place] [address] Socorro Lyon MD [address] [place] [address] documented as of this encounter Visit Diagnoses Not on filedocumented in this encounter Additional Health Concerns Assessment Noted Time PHQ-9 Depression Total Score: 0 06/26/19 23 9:16 AM EST documented as of this encounter Care Teams Paint Grinder Relationship Specialty Start Date End Date Socorro Lyon MD [address] [place] [phone] PCP - General Family Medicine 04/30/18 documented as of this encounter
--- OUTSIDE RECORDS SUMMARY | 2025-01-29 13:28 | XMS_ITS | Encounter Summary ---
Author Organization [employer] Address [address] [place] [address] Care Team Providers Care Pet Training Instructor Name Role Phone Socorro Lyon MD Primary Care Provider [phone] Encounter Details Date Type Department Care Team (Late Contact Info) Description 04/21/2022 Orders Only [facility] [address] [place] [address] Socorro Lyon MD [address] [place] [address] [phone] Degeneration of lumbosacral intervertebral disc (Primary Dx); [...] Description 02/03/2025 10:45 AM EDT Office Visit [facility] [address] [place] [address] [phone] Socorro Lyon MD [address] [place] [address] [phone] documented as of this encounter Procedures Procedure Name Priority Date/Time Associated Diagnosis Comments COVID-19 ID NOW (RIZVI) Routine 05/17/2022 9:02 AM EST Degeneration of lumbosacral intervertebral disc documented in this encounter Results * COVID-19 ID NOW (RIZVI) (05/17/2022 9:02 AM EST) IDNOW SERIAL# [id number] [facility] COVID-19 TEST Negative Negative [facility] COVID-19 NOTE See Note [facility] Comment: Results are for the identification of SARS-CoV2 RNA. TheSARS-CoV2 RNA is generally detectable in respiratory samplesduring the acute phase of infection. Positive results areindicative of the presence of SARS-CoV-2 RNA; clinicalcorrelation with patient history and other diagnosticinformation is necessary to determine patient infectionstatus. Positive results do not rule out bacterial infectionor co- infection with other viruses.Testing facilities within the [facility] and [facility] are required to report all positive results [...] AM EST 05/17/2022 9:02 AM EST us [facility] Exter nal Provider LAB MOLECULAR DIAGNOSTICS ORDERABLES Final Result [facility] [address] [place] [phone] documented in this encounter Visit Diagnoses Diagnosis Degeneration of lumbosacral intervertebral disc- Primary Degeneration of lumbar or lumbosacral intervertebral disc Chronic bilateral low back pain, unspecified whether sciatica present documented in this encounter Care Teams Pet Training Instructor Relationship Specialty Start Date End Date Socorro Lyon MD [address] [place] [address] PCP - General Family Medicine 04/30/18 documented as of this encounter
--- OUTSIDE RECORDS SUMMARY | 2025-01-29 13:28 | XMS_ITS | Clinical Summary ---
Author Organization [employer] Address [address] [place] [address] [address] [place] [address] Care Team Providers Care Custom Feed Mill Operator Name Role Phone Socorro Lyon MD Primary Care Provider [phone] Allergies Active Allergy Reactions Criticality Noted Date [...] 10:14 AM EDT): - currently followed by [facility]. Seen till 2016, then changed to [facility] pain management due to insurance. Most recently seen on 02/13/22 -treated by [facility] pain management, Dr. Elias, last seen in September 2019 --s/p epidural injection for DDD L5-S1, disk hernia with radiculopathy ([facility], [facility]) --s/p MBB on 04/01/19, and 09/23/19 ([facility]). -resumed care with [facility] provider, last seen on 10/21/20, --core strengthening PT was recommended --prescribed topiramate, and pt has been taking it and states it has been effective --Last visit 04/06/21 Urgent referral to [facility] pain management was sent, but unable to [...] appointment on 08/11/22 for reevaluation. -seen by [facility] Rheumatology, last seen in May 2019. Vitamin [...] EST): -Risk factors: smoking -Lipid profile 06/15/22 -[id number] risk 9.7%. Moderate intensity statin therapy is [...] seeing [facility] till 2016, then changed to [facility] pain management due to insurance. -treated by [facility] pain management, Dr. Elias, last seen in September 2019 --s/p epidural injection for DDD L5-S1, disk hernia with radiculopathy ([facility], [facility]) --s/p MBB on 04/01/19, and 09/23/19 ([facility]). -resumed care with [facility] provider in 2020 [...] appt with Neurosurgeon on 08/11/22. -seen by [facility] Rheumatology, last seen in May 2019. Referred to a specialist who is willing to provide injection treatment; referred to [facility] pain management Assessment & Plan (09/29/2022 6:40 AM EDT): - [facility], Dr. George. -Pt was seeing [facility] till 2015, then changed to [facility] pain management due to insurance. -treated by [facility] pain management, Dr. Elias, last seen in September 2019 --s/p epidural injection for DDD L5-S1, disk hernia with radiculopathy ([facility], [facility]) --s/p MBB on 04/01/19, and 09/23/19 ([facility]). -resumed care with [facility] provider in 2020 [...] appt with Neurosurgeon on 08/11/22. -seen by [facility] Rheumatology, last seen in May 2019. Referred to a specialist who is willing to provide injection treatment; referred to [facility] pain management Assessment & Plan (07/19/2022 10:20 AM EDT): - currently followed by [facility] and neurosurgeon, Dr. George. -Pt was seeing [facility] till 2015, then changed to [facility] pain management due to insurance. -treated by [facility] pain management, Dr. Elias, last seen in September 2019 --s/p epidural injection for DDD L5-S1, disk hernia with radiculopathy ([facility], [facility]) --s/p MBB on 04/01/19, and 09/23/19 ([facility]). -resumed care with PSS provider in 2020 [...] appt with Neurosurgeon on 08/11/22. -seen by [facility] Rheumatology, last seen in May 2019. Assessment & Plan (06/26/2022 11:53 AM EST): - currently [facility], Dr. George. -Pt was seeing [facility] till 2015, then changed to [facility] pain management due to insurance. -treated by [facility] pain management, Dr. Elias, last seen in September 2019 --s/p epidural injection for DDD L5-S1, disk hernia with radiculopathy ([facility], [facility]) --s/p MBB on 04/01/19, and 09/23/19 ([facility]). -resumed care with [facility]SS provider in 2020 [...] that surgery is not indicated. -seen by [facility] Rheumatology, last seen in May 2019. Assessment & Plan (06/16/2022 6:54 AM EST): - currently followed [facility], Dr. George. -Pt was seeing [facility] till 2016, then changed to [facility] pain management due to insurance. -treated by [facility] pain management, Dr. Elias, last seen in September 2019 --s/p epidural injection for DDD L5-S1, disk hernia with radiculopathy ([facility], [facility]) --s/p MBB on 04/01/19, and 09/23/19 ([facility]). -resumed care with [facility] provider in 2020 [...] that surgery is not indicated. -seen by [facility] Rheumatology, last seen in May 2019. Impaired [...] Neurosurgeon on 08/11/22. Will contact the previous Wood Casket Assembler to continue injections; if unable to resume injections from the Previous Wood Casket Assembler, will refer patient to another specialist to resume treatment. Assessment & Plan (06/26/2022 11:53 AM EST): -on methadone, currently tapering down. -consider repeating EKG after tapering it off. Chronic low back pain 04/18/2012 Assessment & Plan (09/19/2022 2:32 PM EDT): Referred to Pain Management [facility], pt will call the office to request an early appt. -Pt will also call [facility] regarding to alternative treatment -encouraged to try acupuncture Assessment & Plan (07/19/2022 9:56 AM EDT): Currently, Following with: [facility], Dr. George. -Pt was seeing [facility] till 2015, then changed to [facility] pain management due to insurance. -treated by [facility] pain management, Dr. Elias, last seen in September 2019 --s/p epidural injection for DDD L5-S1, disk hernia with radiculopathy ([facility], [facility]) --s/p MBB on 04/01/19, and 09/23/19 ([facility]). -resumed care with [facility] provider in 2020 --core strengthening PT was [...] that surgery is not indicated. -seen by [facility] Rheumatology, last seen in May 2019. -seen by [facility] pain management, Dr. Elias, last seen September 2019 Assessment & Plan (06/26/2022 9:19 AM EST): Currently, Following with: [facility] Neurosurgeon[facility]. George. -Pt was seeing [facility] till 2015, then changed to [facility] pain management due to insurance. -treated by [facility] pain management, Dr. Elias, last seen in September 2019 --s/p epidural injection for DDD L5-S1, disk hernia with radiculopathy ([facility], [facility]) --s/p MBB on 04/01/19, and 09/23/19 ([facility]). -resumed care with [facility] provider in 2020 [...] that surgery is not indicated. -seen by [facility] Rheumatology, last seen in May 2019. -seen by [facility] pain management, Dr. Elias, last seen September 2019 Assessment & Plan (06/16/2022 6:54 AM EST): - currently followed by [facility] and neurosurgeon, Dr. George. -Pt was seeing [facility] till 2016, then changed to [facility] pain management due to insurance. -treated by [facility] pain management, Dr. Elias, last seen in September 2019 --s/p epidural injection for DDD L5-S1, disk hernia with radiculopathy ([facility]) --s/p MBB on 04/01/19, and 09/23/19 ([facility]). -resumed care with [facility] provider in 2020 --core strengthening PT was [...] that surgery is not indicated. -seen by [facility] Rheumatology, last seen in May 2019. Depressive disorder 04/18/2012 Assessment & Plan (07/19/2022 10:20 AM EDT): -Currently in remission Assessment & Plan (06/26/2022 12:45 PM EST): -Currently in remission Opioid dependence on agonist therapy ([facility]) 1 06/19/2011 Assessment & Plan (06/16/2022 6:55 AM EST): -Continue methadone clinic, currently 5 mg daily Osteoarthritis 04/18/2012 Shoulder pain 04/18/2012 Encounters Date Type Department Care Team Description 01/27/2025 Patient Outreach [facility] [address] [place] [phone] Socorro Lyon MD Pre-visit Planning ((Unable to reach for PVP screening and or LVM) to be completed in office) 11/16/2024 Orders Only [facility] [address] [place] [address] [phone] Socorro Lyon MD Screening for diabetes mellitus (Primary Dx); Vitamin D deficiency; Impaired fasting glucose; Dyslipidemia; Routine screening for STI (sexually transmitted infection) 11/16/2024 Telephone [facility] [address] [place] [address] [phone] Socorro Lyon MD from Last 3 Months [...] Office Visit [facility] [address] [place] [address] Socorro Lyon MD [address] [place] [address] Health Maintenance Due Date Last Done Comments CT Colonography 1959 Colonoscopy 1959 Colorectal Cancer Screening 1959 FIT DNA/Cologuard 1959 FIT 1959 FOBT 1959 Sigmoidoscopy 1959 Alcohol/Substance Use Screening 1971 Pneumococcal Vaccine: 50+ Years (1 of 2 - PCV) 12/05/1978 Zoster Vaccines (1 of 2) 12/05/2009 Hepatitis B Vaccines (2 of 2 - CpG 2-dose series) 07/24/2022 06/26/2022 Depression Screening 06/26/2023 06/26/2022, 06/26/19 23 SDOH Screening 06/26/2023 06/26/2022 Tobacco Screening 11/19/2024 [...] AM EDT Narrative 12/08/2024 7:23 AM EDT [place] [address] Magnetic Resonance Report Signed Patient: Todd Car MR#: [id number] : 1960 Acct:[id number] Age/Sex: 64 / M ADM Date: 12/06/24 Loc: HO.MRI Attending Dr: Rj Corrales MD Ordering Physician: Rj Corrales MD Date of Service: 12/06/24 Procedure(s): MR lumbar spine wo con Accession Number(s): [id number] cc: Rj Corrales MD; Socorro Lyon MD [...] 12/08/24 0721 DD/ 0932 TD/TT: 12/06/24 1011 Molded Candles Wicker: Procedure Note Donotuseinterpreter, Image - 12/08/[address] [address] Magnetic Resonance Report Signed Patient: Todd Car [facility]#: [id number] : 1960Acct:[id number] Age/Sex: 64 / MADM Date: 12/06/24 Loc: HO.MRI Attending Dr: Rj Corrales MD Ordering Physician: Rj Corrales MD Date of Service: 12/06/24 Procedure(s): MR lumbar spine wo con Accession Number(s): [id number] cc: Rj Corrales MD; Socorro Lyon MD [...] 12/08/24 0721 DD/ 0932 TD/TT: 12/06/24 1011 Molded Candles Wicker: [facility] External Provider IMG MRI PROCEDURES Final Result * Lipid Panel with Reflex to Direct LDL (06/15/2022 10:43 AM EST) Cholesterol, Total 155 <200 mg/dL [facility] HDL Cholesterol 68 > OR = 40 mg/dL [facility] Triglycerides 57 <150 mg/dL [facility] LDL Cholesterol 74 mg/dL (calc) [facility] Comment: Reference range: <100 Desirable range <100 mg/dL for primary prevention; <70 mg/dL for patients with CHD or diabetic patients with > or = 2 CHD risk factors. LDL-C is now calculated using the Ethan-Michelle calculation, which is a validated novel method providing better accuracy than the Friedewald equation in the estimation of LDL-C. Ethan SS et al. DARIAN. 2013;310(19): 6582-0048 (http://education.Telerik/faq/THW905) Chol/HDLC Ratio 2.3 <5.0 (calc) [facility] Non-HDL Cholesterol 87 <130 mg/dL (calc) [facility] Comment: For patients with diabetes plus 1 major ASCVD risk factor, treating to a non-HDL-C goal of <100 mg/dL (LDL-C of <70 mg/dL) is considered a therapeutic option. 06/15/2022 10:4 3 AM EST 06/15/2022 10:43 AM EST Narrative [facility] - 06/17/2022 2:30 AM EST FASTING:YES FASTING: YES Socorro Lyon MD LAB BLOOD ORDERABLES Final Resul t Performing Organization Address City/[facility] Co de Phone Number [address], [place] [address] [facility] [address] [place] [address], (Nl2) [place] [address] * Hepatitis C Antibody with Reflex to HCV, RNA, Quantitative, Real-Time PCR (06/15/2022 10:43 AM EST) Hepatitis C Antibody NON-REACT JACE NON-REACT JACE Anygma Index <0.02 <1.00 [facility] Comment: HCV antibody was non-reactive. There is no laboratory evidence of HCV infection. In most cases, no further action is required. However, if recent HCV exposure is suspected, a test for HCV RNA (test code 18483) is suggested. For additional information please refer to http://education.GoPago/faq/CYF23i5 (This link is being provided for informational/ educational purposes only.) Blood Venous blood specimen / Unknown 06/15/2022 10:43 AM EST 06/15/2022 10:43 AM EST Narrative [facility] - 06/17/2022 2:30 AM EST FASTING:YES FASTING: YES Socorro Lyon MD LAB BLOOD ORDERABLES Final Resul t Performing Organization Address City/[facility]/ZIP Co de Phone Number [address], [place] [address] [facility] [address] [place] [address], ([address]) [place] [address] from Last 3 Months or Most Recently Relevant to Health Maintenance Insurance [facility] C3 Care Teams Custom Feed Mill Operator Relationship Specialty Start Date End Date Socorro Lyon MD [address] [place] [address] PCP - General Family Medicine 04/30/18
[2025-02-11 09:12] VITALS: BMI 24.8
--- NOTE | 2025-02-11 11:52 | P.CONAN_ITS ---
HPI - Anesthesia Eval Consult details Narrative: 64yo M for L4,L5 and S1 Basivertebral Nerve Ablation (Intracept RFA) PMF Active Problems Active Problems: All Active Problems Vertebrogenic low back pain (Acute) Spinal stenosis (Acute) Radiculopathy, lumbar region (Acute) Chronic pain syndrome (Acute) Spondylosis of lumbar region without myelopathy or radiculopathy (Acute) Disc degeneration, lumbar (Acute) Polysubstance abuse (Acute) Past Medical History Medical History Polysubstance abuse Social History Social History Alcohol intake: unknown Substance Use Type: Heroin Meds Allergies Allergy/AdvReac Type Severity Reaction Status Date / Time tramadol Allergy Unknown itching Verified 01/14/25 09:00 Home Medications ?Medication ?Instructions ?Recorded ?Confirmed ?Last Taken ?Type No Known Home Meds 08/13/24 08/13/24 Un known History Exam Height,Weight and Vital Signs: Height 5 ft 9 in Weight 76.204 kg Assessment and Plan Assessment Anesthesia Assessment: Chart Reviewed
--- NOTE | 2025-02-13 09:55 | PC.NURSE ---
pt cancelled used heroin yesterday dr vee aware and anesthesia cancelled patient patient sts 'i cant stop using heroin i use it for patient knows this hes aware need to be sober at least a mth for surgery
== END ==
LOC: HO.SSS 09:29
PROVIDERS: PCP Family Medicine; Visit Provider Anesthesiology
DX: M54.51 Vertebrogenic low back pain (principal); Z53.09 Procedure and treatment not carried out because of other contraindication; F11.10 Opioid abuse, uncomplicated